=== PATIENT | female | born 1965 | race Caucasian/White ===

== ENCOUNTER 2020-01-06 20:29 | Emergency (ER) | payer MEDICARE, MEDICAID, SELFPAY ==
[2020-01-06 20:36] VITALS: BP 96/60; PULSE 95; RESP 18; TEMP 36.7; O2SAT 96; BMI 21.5
--- NOTE | 2020-01-06 21:16 | ECG_ITS ---
Measurements Intervals [place] Rate: 73 P: 41 SC: 173 QRS: -22 QRSD: 109 T: 119 QT: 428 QTc: 472 SINUS RHYTHM BORDERLINE LEFT AXIS DEVIATION [QRS AXIS < -20] ST DEVIATION AND MODERATE T-WAVE ABNORMALITY, CONSIDER ANTERIOR ISCHEMIA [-0.1+ mV T WAVE IN V3/V4] No previous ECG available for comparison Electronically Signed On 01-07-2020 20:22:17 PREDATORY HUNTER by Franco Buchanan M.D. [id number]
--- NOTE | 2020-01-06 21:16 | XRR_ITS ---
PROCEDURE INFORMATION: Exam: XR Abdomen, 2 Views Exam date and time: 01/06/2020 9:17 PM Age: 54 years old Clinical indication: Nausea and vomiting; Abdominal pain; Prior surgery; Surgery type: Peritoneal dialysis cath; Additional info: Bell[place] pain TECHNIQUE: Imaging protocol: XR of the abdomen. Views: 2 Views. COMPARISON: No relevant prior studies available. FINDINGS: Tubes, catheters and devices: Peritoneal dialysis catheter tubing is coiled in the pelvis. Lungs: Ill-defined airspace opacity in the right lower lobe concerning for pneumonic infiltrate is noted. Pleural space: Probable small right pleural effusion. Gastrointestinal tract: Normal. No bowel dilation. Intraperitoneal space: Normal. No free air. Organs: Probable cholecystectomy clips are noted in the right upper quadrant. Vasculature: There are vascular calcifications. No definite nephrolithiasis. Bones/joints: Unremarkable for age. XR/XR acute abdomen series [id number] IMPRESSION: 1. Ill-defined airspace opacity in the right lower lobe concerning for pneumonic infiltrate is noted. 2. Nonspecific bowel gas pattern.
--- NOTE | 2020-01-06 21:17 | PC.NURSE ---
Introduced self to patient and initiated vital signs. Patient presents A&O x 4. NAD, ABCs intact, MAEW and agreeable to treatment. Respirations are even and unlabored. Pt states medications taken before coming to ER was hydrocodone. Pt states that the chief complaint for the ER visit today is due to abdominal pain which presented approximately 4 days ago. Pt denies any vision disturbances or lightheadedness. Bed left in lowest position in semi-fowlers with side rails up.Reassured patient of needs and will continue to monitor.
--- NOTE | 2020-01-06 21:17 | W.ED.GENADLT ---
HPI - General Adult General: Chief complaint: Abdominal Pain Stated complaint: ABD PAIN Time Seen by Provider: 01/06/20 21:08 History of Present Illness: HPI narrative: Abdominal pain for a few days per just recently discharged from the [facility] in [place] with a diagnosis of pneumonia patient was sent to [facility] for 4 days and patient checked herself out today. Apparently residential was not given her hydrocodone and that is what she wanted. now abdominal pain and nausea only resolved with hydrocodone. Patient had dialysis treatment yesterday does peritoneal dialysis sees Dr. Mosquera on a regular basis. Denies fever shortness of breath or cough. MD complaint: Abdominal pain Onset (ago): week(s) Location: abdomen Radiation: non-radiation Severity scale (1-10): 7 Quality: burning and aching Pain Consistency: constant Relieving factors: medication (Hydrocodone) Exacerbating factors: none Associated symptoms: Reports no associated symptoms, nausea and vomiting; Deny chest pain, dyspnea, headache(s) or rash Review of Systems Const: Denies: fever, chills or body aches Eyes: Denies: change in vision or blurry vision ENMT: Denies: throat pain or nasal congestion Card: Denies: chest pain or shortness of breath on exertion Resp: Reports: non-productive cough (Cough has improved); Denies: shortness of breath or productive cough GI: Reports: abdominal pain, nausea and vomiting; Denies: diarrhea, constipation, bloating or excessive passing of gas Musc: Denies: extremity pain Skin/Breast: Denies: rash Neuro: Denies: headache Psych: Denies: anxiety or depression Bertin/Lymph: Denies: easy bruising PFS ED PFSH: Social History Smoking and tobacco status: former smoker Physical Exam Const: COMMON NORMALS: no apparent distress, average body habitus and oriented x3 HENMT: COMMON NORMALS: normocephalic HEAD & SCALP: normal to inspection and normocephalic FACE & SINUS: normal facial exam Eye: COMMON NORMALS: conjunctivae normal GENERAL EYE: normal appearance of both eyes CONJUNCTIVA: Yes conjunctivae normal Neck/C-Spine: COMMON NORMALS: no JVD Chest: COMMONS NORMALS: inspection of chest normal Resp: COMMON NORMALS: normal respiratory effort and clear to auscultation bilaterally AUSCULTATION: clear to auscultation bilaterally Cardio: COMMON NORMALS: no JVD, regular rate and regular rhythm RATE: regular rate RHYTHM: regular rhythm GI: INSPECTION: Yes other (Dialysis port present on abdomen abdomen appears fine. Does have tenderness to the upper epigastric area. Decreased bowel sounds.) Extremity: COMMON NORMALS: normal to inspection and full ROM Neuro: COMMON NORMALS: oriented x3 Skin: OTHER: Skin is very dry. Course Vital Signs: Vital signs: Vital Signs Temperature 98.1 F 01/06/20 20:36 Pulse Rate 72 01/07/20 01:35 Respiratory Rate 16 01/07/20 01:35 Blood Pressure 121/77 01/07/20 01:35 Pulse Oximetry 98 01/07/20 01:35 MDM - General Adult MDM Narrative: Medical decision making narrative: Discussed case with Dr. Lujan recommends admission. CAll into Dr. Kaminski at [address] Kaminski 3 separate times about patient she was in a couple emergencies upstairs. Went over the labs and patient history patient history with Dr. Yamilex Kaminski did not think patient met criteria for admission criteria for admission based on her past history of with pneumonia at [facility] in stable clinical signs. We discussed that patient had a left [facility] residential today on her own accord signed out do not been able to get her hydrocodone while in the residential and she was desirous of having hydrocodone. During patient stay here she was stable was pain-free clinically no shortness of breath fever are cough discussed case with Dr. Chappell also Dr. Kaminski . Lab Data: Labs: Lab Results 01/06/20 01/06/20 01/06/20 Range/Units 21:17 21:17 22:28 WBC 16.4 H (4.0-10.0) 10^3/ uL RBC 3.85 L (4.1-5.3) 10^6/u L Hgb 11.1 L (11.5-15.3) g/dL Hct 34.3 L (37.0-47.0) % MCV 89.1 (81-99) fL MCH 28.8 (28.0-34.0) pg MCHC 32.4 (30.0-36.0) g/dL RDW 17.6 H (12.1-15.1) % Plt Count 344 (130-400) 10^3/c mm MPV 10.2 (7.4-10.4) fL Neut % (Auto) 84.5 % Lymph % (Auto) 8.4 % Sharkey % (Auto) 5.9 % Eos % (Auto) 0.5 % Baso % (Auto) 0.2 % Neut # (Auto) 13.9 H (1.8-7.7) 10^3/u L Lymph # (Auto) 1.4 (0.8-4.8) 10^3/u L Sharkey # (Auto) 1.0 H (0.2-0.9) 10^3/u L Eos # (Auto) 0.1 (0.0-0.8) 10^3/u L Baso # (Auto) 0.0 (0.0-0.1) 10^3/u L Nucleated RBC % (a uto) 0 % Nucleated RBCs # 0.0 /100WBC Sodium 135 L (136-145) mmol/L Potassium 3.3 L (3.5-5.1) mmol/L Chloride 93 L (98-107) mmol/L Carbon Dioxide 27 (22-29) mmol/L Anion Gap 18.3 (5-19) BUN 36 H (6-20) mg/dL Creatinine 7.5 H* (0.5-0.9) mg/dL GFR Calculation 5.7 L (90-130) mL/min Glucose 54 L (65-115) mg/dL Lactic Acid (Sepsi s) 1.2 (0.5-2.2) mmol/L Calcium 7.6 L (8.5-10.5) mg/dL Total Bilirubin 0.4 (0.15-1.2) mg/dL AST 21 (0-32) U/L ALT 14 (0-33) U/L Alkaline Phosphata se 148 H (35-105) IU/L Troponin T Gen 5 n g/L (0-10) ng/mL Troponin T 120 Min elem (0-10) ng/mL Delta Troponin T (0-10) ABS# Total Protein 5.0 L (6.6-8.7) g/dL Albumin 1.9 L (3.5-5.2) g/dL Globulin 3.1 (1.3-4.6) g/dL Lipase 9 L (13-60) U/L 01/06/20 01/07/20 Range/Units 22:28 00:40 WBC (4.0-10.0) 10^3/ uL RBC (4.1-5.3) 10^6/u L Hgb (11.5-15.3) g/dL Hct (37.0-47.0) % MCV (81-99) fL MCH (28.0-34.0) pg MCHC (30.0-36.0) g/dL RDW (12.1-15.1) % Plt Count (130-400) 10^3/c mm MPV (7.4-10.4) fL Neut % (Auto) % Lymph % (Auto) % Sharkey % (Auto) % Eos % (Auto) % Baso % (Auto) % Neut # (Auto) (1.8-7.7) 10^3/u L Lymph # (Auto) (0.8-4.8) 10^3/u L Sharkey # (Auto) (0.2-0.9) 10^3/u L Eos # (Auto) (0.0-0.8) 10^3/u L Baso # (Auto) (0.0-0.1) 10^3/u L Nucleated RBC % (a uto) % Nucleated RBCs # /100WBC Sodium (136-145) mmol/L Potassium (3.5-5.1) mmol/L Chloride (98-107) mmol/L Carbon Dioxide (22-29) mmol/L Anion Gap (5-19) BUN (6-20) mg/dL Creatinine (0.5-0.9) mg/dL GFR Calculation (90-130) mL/min Glucose (65-115) mg/dL Lactic Acid (Sepsi s) (0.5-2.2) mmol/L Calcium (8.5-10.5) mg/dL Total Bilirubin (0.15-1.2) mg/dL AST (0-32) U/L ALT (0-33) U/L Alkaline Phosphata se (35-105) IU/L Troponin T Gen 5 n g/L 530 H* (0-10) ng/mL Troponin T 120 Min elem 505.9 H (0-10) ng/mL Delta Troponin T -24.1 L (0-10) ABS# Total Protein (6.6-8.7) g/dL Albumin (3.5-5.2) g/dL Globulin (1.3-4.6) g/dL Lipase (13-60) U/L Imaging Data^: CXR: My impression: RLL infiltrate EKG Data^: EKG 1: EKG interpretation date: 01/06/20 EKG interpretation time: 21:39 Interpretation: Sr, VR-73 bpm, pr-173md Computer generated interpretation: Chest/Abdomen X-ray 01/06/20 21:16 IMPRESSION: 1. Ill-defined airspace opacity in the right lower lobe concerning for pneumonic infiltrate is noted. 2. Nonspecific bowel gas pattern. EKG 2: EKG interpretation date: 01/06/20 EKG interpretation time: 23:17 Interpretation: SR, VR-77bpm, ST deviation v3-4, VT- 171ms Computer generated interpretation: Chest/Abdomen X-ray 01/06/20 21:16 IMPRESSION: 1. Ill-defined airspace opacity in the right lower lobe concerning for pneumonic infiltrate is noted. 2. Nonspecific bowel gas pattern. Discharge Plan Discharge Patient Disposition: Home, Self-Care Clinical Impression: Abdominal pain Qualifiers: Abdominal location: generalized Qualified Code(s): R10.84 - Generalized abdominal pain Pneumonia Qualifiers: Pneumonia type: due to unspecified organism Laterality: right Lung location: lower lobe of lung Qualified Code(s): J18.9 - Pneumonia, unspecified organism Condition: Stable Prescriptions: No Action albuterol sulfate 2.5 mg /3 mL (0.083 %) solution for nebulization See Rx Instructions .ROUTE .COMPLEX RF: 0 amiodarone 200 mg tablet 200 mg PO DAILY RF: 0 sertraline 100 mg tablet 100 mg PO DAILY RF: 0 levothyroxine 150 mcg tablet See Rx Instructions .ROUTE .COMPLEX RF: 0 gentamicin 0.1 % Cream 1 applic TOPICAL QID RF: 0 sorbitol 70 % Solution See Rx Instructions .ROUTE .COMPLEX RF: 0 Xopenex HFA 45 mcg/actuation Hfa Aerosol Inhaler 2 puff INHALATION Q8H PRN (Reason: Shortness Of Breath) RF: 0 RenaPlex-D 800 mcg-12.5 mg -2,000 unit Tablet 1 tab PO DAILY RF: 0 calcium acetate 667 mg Capsule 667 mg PO TID RF: 0 Nexium 40 mg Capsule,Delayed Release(Dr/Ec) 40 mg PO DAILY RF: 0 morphine concentrate 100 mg/5 mL (20 mg/mL) solution 0.5 mg PO Q2H PRN (Reason: Pain) RF: 0 [place] 10-325 mg tablet 1 tab PO Q4H PRN (Reason: Pain) RF: 0 Ecotrin 325 mg tablet,delayed release (DR/EC) 325 mg PO DAILY RF: 0 Dulcolax (bisacodyl) 10 mg suppository 10 mg VT DAILY PRN (Reason: Constipation) RF: 0 ondansetron 4 mg tablet,disintegrating 4 mg PO Q6H PRN (Reason: Nausea) RF: 0 Lorazepam Intensol 2 mg/mL concentrate 1 mg PO Q2H PRN (Reason: Anxiety) RF: 0 Zetia 10 mg tablet 10 mg PO DAILY RF: 0 metoprolol tartrate 25 mg tablet 12.5 mg PO BID RF: 0 Discharge Orders: Discharge Order (Routine); Ordered 01/07/20 Ordered By: Kelvin Moreno Referrals: Hazel Mancera FNP [Family Provider] - Discharge Diet: Usual diet Discharge Activity: Increase activity as tolerated Patient Instructions: Abdominal Pain (ED) Activity Restrictions/Additional Instructions: Follow-up with your primary care provider. In the next week. Discharge Date/Time: 01/07/20 01:37 Coding Level of Care Code ED Lathe Turner for Dawna Fwd Exam Comprehensive
[2020-01-06 21:32] LABS: Basophils % 0.2 %; Eosinophils # 0.1 10^3/uL (0.0-0.8); Eosinophils % 0.5 %; Hematocrit 34.3 % (37.0-47.0); Hemoglobin 11.1 g/dL (11.5-15.3); Lymphocytes # 1.4 10^3/uL (0.8-4.8); Lymphocytes % 8.4 %; Mean Corpuscular HGB Conc 32.4 g/dL (30.0-36.0); Mean Corpuscular Hemoglobin 28.8 pg (28.0-34.0); Mean Corpuscular Volume 89.1 fL (81-99); Mean Platelet Volume 10.2 fL (7.4-10.4); Monocytes % 5.9 %; Neutrophils # 13.9 10^3/uL (1.8-7.7); Neutrophils % 84.5 %; Nucleated Red Blood Cells % 0 %; Platelet Count 344 10^3/cmm (130-400); Red Blood Count 3.85 10^6/uL (4.1-5.3); Red Cell Distribution Width 17.6 % (12.1-15.1); White Blood Count 16.4 10^3/uL (4.0-10.0)
[2020-01-06 21:49] LABS: Alanine Aminotransferase 14 U/L (0-33); Albumin Level 1.9 g/dL (3.5-5.2); Alkaline Phosphatase 148 IU/L (35-105); Anion Gap 18.3 (5-19); Aspartate Amino Transferase 21 U/L (0-32); Blood Urea Nitrogen 36 mg/dL (6-20); Calcium 7.6 mg/dL (8.5-10.5); Carbon Dioxide 27 mmol/L (22-29); Chloride 93 mmol/L (98-107); Globulin 3.1 g/dL (1.3-4.6); Glomerular Filtration Rate 5.7 mL/min (90-130); Glucose 54 mg/dL (65-115); Lipase 9 U/L (13-60); Potassium 3.3 mmol/L (3.5-5.1); Sodium 135 mmol/L (136-145); Total Bilirubin 0.4 mg/dL (0.15-1.2)
[2020-01-06] MEDS: lidocaine 2% viscous 15 ML, aluminum-mag hydrox-simethicon 30 ML, sucralfate oral liq 1 GM PO (22:02)
[2020-01-06] MEDS: promethazine 25 mg/mL SDV 1 mL 12.5 MG IM (22:03)
[2020-01-06] MEDS: piperacillin-tazobactam 2.25 GM in sodium chloride 0.9% (plus) 50 ML IV (22:29)
[2020-01-06] MEDS: vancomycin 500 MG in sodium chloride 0.9% (plus) 100 ML 200 MG IV (22:51)
[2020-01-06 22:52] LABS: Lactic Acid level (Lactate) 1.2 mmol/L (0.5-2.2)
[2020-01-06 22:59] LABS: Troponin T (5th) Once 530 ng/mL (0-10)
--- NOTE | 2020-01-06 23:04 | ECG_ITS ---
Measurements Intervals [place] Rate: 77 P: 35 [place]: 171 QRS: -22 QRSD: 105 T: 131 QT: 425 QTc: 482 SINUS RHYTHM BORDERLINE LEFT AXIS DEVIATION [QRS AXIS < -20] ST DEVIATION AND MODERATE T-WAVE ABNORMALITY, CONSIDER ANTERIOR ISCHEMIA [-0.1+ mV T WAVE IN V3/V4] No previous ECG available for comparison Electronically Signed On 01-07-2020 20:23:25 PAYROLL SPECIALIST by Franco Buchanan M.D. [email or web address]
[2020-01-06 23:35] VITALS: BP 107/67; O2SAT 99
[2020-01-06 23:40] VITALS: BP 107/67; PULSE 73; RESP 12; O2SAT 95
[2020-01-06 23:45] VITALS: BP 107/67; PULSE 75; RESP 9; O2SAT 94
[2020-01-06 23:50] VITALS: BP 107/67; PULSE 77; RESP 9; O2SAT 95
[2020-01-06 23:55] VITALS: BP 107/67; PULSE 76; RESP 12; O2SAT 95
[2020-01-07] VITALS (15 sets, daily range): BP systolic 101–129; BP diastolic 66–77; PULSE 72–93; RESP 4–23; O2SAT 86–100
--- NOTE | 2020-01-07 01:04 | ECG_ITS ---
Measurements Intervals [place] Rate: 76 P: 13 [place]: 149 QRS: -18 QRSD: 109 T: 226 QT: 448 QTc: [address] DEVIATION AND MODERATE T-WAVE ABNORMALITY, CONSIDER ANTEROLATERAL ISCHEMIA [-0.1+ mV T WAVE IN V3-V6] No previous ECG available for comparison Electronically Signed On 01-07-2020 20:33:47 VIRTUALIZATION ARCHITECT by Franco Buchanan M.D. [id number]
[2020-01-07 01:16] LABS: Troponin 5 2HR 505.9 ng/mL (0-10); Troponin 5 2HR Delta -24.1 ABS# (0-10)
== END 2020-01-07 01:37 | disposition home or self-care (01) ==
PROVIDERS: Emergency Provider Nurse Practitioner Family; Family Provider Nurse Practitioner Family
DX: J18.9 Pneumonia, unspecified organism (principal); R10.9 Unspecified abdominal pain; Z87.891 Personal history of nicotine dependence
CPT/HCPCS: 36415; 74022; 80053; 83605; 83690; 84484; 85025; 87040; 93005; 96365; 96367; 96372; 99284; J2543; J2550; J7050

== ENCOUNTER 2020-01-23 01:26 | Inpatient (IN) | payer MEDICARE, SELFPAY ==
--- NOTE | 2020-01-23 01:06 | P.HP_ITS ---
Providers/Chief Complaint Admitting Physician: Miladys Vazquez MD Chief Complaint: HYPOKALEMIA/HYPOTENSION History of Present Illness Leonie Wong is a 54 year old female who has a history of end-stage renal disease currently on peritoneal dialysis since 2016, sees Dr. Mosquera, has home health services Thursday, she was at [facility] for pneumonia and she was there for 3 to 4 weeks, developed pressure induced injury around her coccygeal bone and was transferred to half-way at [place]. She lives with her son, quit smoking 2018, does not follow strictly renal diet, lately she was feeling more lethargic and weak, experiencing muscle cramps, she stopped taking her potassium tablets because it made her sick. She continued her peritoneal dialysis, home health services miryam labs and called her today to get to the ER because of potassium of 1.6. At [facility] she was given 80 mEq of potassium chloride, 1 L normal saline, improved potassium from 1.6-2.1, no EKG changes were noticed, she was awake, alert. ER physician from [place] transferred to our facility for concerns i.e. hypokalemia and hypotension. When patient arrived here she was asymptomatic, gave me all the details mentioned above, she is telling me that at home her blood pressure runs around 90-1 10, she has not been taking her potassium tablets, she does not make any urine at all, she was scheduled to see a keyboarding teacher at [place] who was planning for an angiogram, she is not aware of the details and the reason for the angiogram. She is not sure why she is on amiodarone but able to tell me seamus t Coumadin was discontinued by Dr. Mosquera which was being used for thromboembolic phenomenon. Her TSH is extremely high she is on high dose of levothyroxine. Diagnostic work-up was reviewed She stayed afebrile, heart rate was fluctuating between 60-67, respiratory rate 16, systolic blood pressure was ranging between 70-90, after 1 L bolus blood pressure improved to 118/58, he was saturating well on room air White count 13.6 Hemoglobin 11.3 Platelets 342. Sodium 138 Potassium 1.6 which improved to 2.1 after replenishment Calcium 7.1 Bicarb 30 BUN 20 Creatinine 4.4 Glucose 90 Alkaline phosphatase 146 AST 42K ALT 27 Magnesium 1.3, she was given 2 g of magnesium IV TSH 97 Chest x-ray revealed decreased lung volumes with elevated right hemidiaphragm groundglass opacity in right lung/atelectasis no fluid overloaded vascular congestion seen Review of Systems Const: Reports: body aches, change in appetite, change in weight, fatigue and malaise; Denies: fever or chills Eyes: Denies: change in vision ENMT: Denies: throat pain, uvular edema, enlarged tonsils or painful swallowing Card: Reports: palpitations; Denies: chest pain or edema Resp: Denies: shortness of breath, productive cough or non-productive cough GI: Denies: abdominal pain, nausea or vomiting : Denies: flank pain, difficulty urinating or urinary frequency Musc: Reports: muscle cramps and muscle weakness Skin/Breast: Reports: rash and other (Patient has a tunneled wound on her coccygeal bone) Neuro: Reports: lack of coordination, frequent falls and dizziness; Denies: headache, numbness in extremities or weakness in extremities Psych: Denies: anxiety Endo: Denies: excessive urination Bertin/Lymph: Denies: easy bruising All/Imm: Denies: hives Medications/Allergies Allergies Allergy/AdvReac Type Severity Reaction Status Date / Time blue dye Allergy Unknown ADR-Itching Unverified 01/23/20 02:06 acetaminophen [From Percocet] Allergy ADR-Itching Verified 01/06/20 20:46 cefuroxime [From Ceftin] Allergy ADR-Itching Verified 01/06/20 20:46 ibuprofen Allergy ADR-Itching Verified 01/06/20 20:46 oxycodone [From Percocet] Allergy ADR-Itching Verified 01/06/20 20:46 PFSH Acute PFSH: Medical History (Updated 01/23/20 @ 02:18 by Miladys Vazquez MD) Depression Diabetes DVT (deep venous thrombosis) Dyslipidemia End stage renal disease GERD (gastroesophageal reflux disease) Hx of necrotizing fasciitis Hypothyroidism MRSA infection Osteoarthritis Pressure ulcer, stage III Renal failure treated with peritoneal dialysis Thyroid nodule Urolithiasis Surgical History (Updated 01/23/20 @ 02:13 by Miladys Vazquez MD) Gastric bypass status for obesity H/O parathyroidectomy H/O ventral hernia repair History of carpal tunnel surgery History of tonsillectomy Hx of cholecystectomy Family History (Updated 01/23/20 @ 02:13 by Miladys Vazquez MD) Denies family history of Clotting disorder Chronic kidney disease (CKD) Social History (Updated 01/23/20 @ 02:13 by Miladys Vazquez MD) Smoking and tobacco status: former smoker Alcohol intake: never Substance/Drug Use: never Household members: family Housing: House Physical Exam Narrative: EXAM NARRATIVE: This is a frail 54-year-old female who appears more than stated age Lying comfortably in her bed S1, S2, no signs of heart failure Lungs are clear to auscultation Abdomen soft nontender nondistended bowel sound present Skin shows petechia purpura with bruises and lacerations all over her extremities She has a tunneled wound around her coccygeal bone without any active drainage Alert oriented x3, GCS 15, neurologically nonfocal exam Appropriate mood and affect EOMI, PERRLA A&P Assessment and plan (1) Hypotension: Status: Acute Code(s): I95.9 - Hypotension, unspecified (2) Hypokalemia: Status: Acute Code(s): E87.6 - Hypokalemia (3) Hypomagnesemia: Status: Acute Code(s): E83.42 - Hypomagnesemia (4) Peritoneal dialysis catheter in place: Status: Acute Code(s): Z99.2 - Dependence on renal dialysis (5) Malnourished: Status: Acute Code(s): E46 - Unspecified protein-calorie malnutrition Additional A&P Information Electrolyte imbalance secondary to noncompliance Hypomagnesemia, hypokalemia No diarrhea or vomiting Monitor for refeeding syndrome, she has poor p.o. intake, stopped taking her potassium tablets Replete potassium and magnesium No EKG changes noted End-stage renal disease on peritoneal dialysis Last peritoneal dialysis session was yesterday Dr. Mosquera is her animal care supervisor Hypotension No signs of sepsis It seems to be her chronic baseline systolic blood pressure which ranges between 90-1 10 Hold beta-meghan for now along amiodarone Hypothyroidism: TSH 97, she takes 50 mcg 3 times a day History of thromboembolism: Patient is stating that Dr. Mosquera has discontinued warfarin and start her on high-dose aspirin Obtain records from [facility] from Dr. Be, patient is stating that she was scheduled for an angiogram Currently chest pain-free. Tunneled coccygeal area wound No active drainage Without proper source control she might benefit from long-term chronic oral antibiotics Patient is stating that this pressure induced injury was sustained during her stay at the [facility] Left heel ulcer seems well-healed without any active drainage Patient seems malnourished: She does not follow any strict renal diet, her p.o. intake has been decreased, needs reinforcement and counseling for proper nutritional requirements Full code DVT prophylaxis Heparin Renal diet Attestations Medical Necessity Statement*: Anticipating discharge in less than 48 hours after replenishment of electrolytes Time Spent in Patient Care: 50 Coding Level of Care Code Acute Head Wood Grinder for Chg Fwd Diagnoses Hypotension I95.9 Hypokalemia E87.6 Hypomagnesemia E83.42 Peritoneal dialysis catheter in place Z99.2 Malnourished E46
[2020-01-23 01:33] VITALS: BMI 21.7
[2020-01-23] MEDS: magnesium oxide 400 mg tablet PO (04:05)
[2020-01-23] MEDS: heparin 5,000 unit/mL INJ 1 mL 5000 UNIT SUBCUT ×3 (04:05→22:22)
[2020-01-23 05:33] VITALS: BP 88/60; PULSE 73; RESP 20; TEMP 36.7; O2SAT 98
[2020-01-23 05:37] VITALS: BP 101/68; PULSE 71; RESP 16; TEMP 36.7; O2SAT 96
[2020-01-23 06:47] LABS: Basophils # 0.1 10^3/uL (0.0-0.1); Basophils % 0.6 %; Eosinophils # 0.3 10^3/uL (0.0-0.8); Eosinophils % 2.5 %; Hematocrit 25.7 % (37.0-47.0); Hemoglobin 9.4 g/dL (11.5-15.3); Lymphocytes # 2.7 10^3/uL (0.8-4.8); Lymphocytes % 23.9 %; Mean Corpuscular HGB Conc 36.6 g/dL (30.0-36.0); Mean Corpuscular Hemoglobin 29.4 pg (28.0-34.0); Mean Corpuscular Volume 80.3 fL (81-99); Monocytes # 0.6 10^3/uL (0.2-0.9); Monocytes % 5.6 %; Neutrophils # 7.4 10^3/uL (1.8-7.7); Neutrophils % 67.1 %; Nucleated Red Blood Cells % 0 %; Platelet Count 271 10^3/cmm (130-400); Red Cell Distribution Width 19.9 % (12.1-15.1); White Blood Count 11.1 10^3/uL (4.0-10.0)
[2020-01-23 07:02] LABS: Anion Gap 9.4 (5-19); Blood Urea Nitrogen 17 mg/dL (6-20); Calcium 6.6 mg/dL (8.5-10.5); Carbon Dioxide 29 mmol/L (22-29); Chloride 108 mmol/L (98-107); Glomerular Filtration Rate 9.5 mL/min (90-130); Glucose 68 mg/dL (65-115); Osmolality Calculated 293 mOsm/kg (285-295); Sodium 144 mmol/L (136-145)
--- NOTE | 2020-01-23 07:06 | ECG_ITS ---
Measurements Intervals [place] Rate: 71 P: 9 [place]: 185 QRS: -21 QRSD: 110 T: 132 QT: 418 QTc: 456 SINUS RHYTHM LOW QRS VOLTAGE IN PRECORDIAL LEADS [QRS DEFLECTION < 1.0 mV IN CHEST LEADS] MODERATE INTRAVENTRICULAR CONDUCTION DELAY [105+ ms QRS DURATION, 80+ ms Q/S IN V1/V2, NO Q AND 60+ ms R IN I/aVL/V5/V6] ABNORMAL QRS-T ANGLE [QRS-T AXIS DIFFERENCE > 60] Compared to ECG 01/07/2020 00:56:55 Low QRS voltage now present Intraventricular conduction delay now present T-wave abnormality no longer present Possible ischemia no longer present Electronically Signed On 01-23-2020 17:24:54 CDT by Trevor Pérez M.D. [id number]
[2020-01-23 07:09] LABS: Potassium 2.4 mmol/L (3.5-5.1)
[2020-01-23 07:35] VITALS: BP 104/67; PULSE 71; RESP 18; TEMP 36.7; O2SAT 98
[2020-01-23] MEDS: sertraline 100 mg Tablet PO (10:00)
[2020-01-23] MEDS: pantoprazole DR 40 mg Tablet PO (10:01)
[2020-01-23] MEDS: aspirin 325 mg EC Tablet PO (10:01)
[2020-01-23] MEDS: calcium acetate 667 mg Capsule PO (10:02)
[2020-01-23] MEDS: ondansetron 4 MG Tablet PO (10:41)
[2020-01-23] MEDS: levothyroxine 50 mcg Tablet 150 MCG PO (10:41)
[2020-01-23 10:51] LABS: Free T4 Free Thyroxine 0.69 ng/dL (0.82-1.77); T3 Free 0.8 PG/ML (2.0-4.4); Thyroid Stimulating Hormone 67.05 uIU/mL (0.27-4.20)
[2020-01-23 11:08] VITALS: BP 110/61; PULSE 74; RESP 16; TEMP 36.8; O2SAT 97
--- NOTE | 2020-01-23 11:09 | PC.NURSE ---
WOUND CARE [place]URSE [place] [facility] [place] AND SPOKE TO NURSE PEPE IN REGARDS TO WOUND CARE ON PATIENT. WOUND CARE ORDERS HAD BEEN STARTED BY LILLIANA PARMAR WHEN PATIENT WAS SEEN FOR HER FOLLOW FOR HER HOSPITAL STAY IN [facility]. PEPE REPORTED THAT THEY HAD STARTED PACKING WOUND WITH PURACOL WHICH SHE DESCRIBED TO BE SIMILAR TO A [employer] DRESSING AND COVERING. PEPE REPORTS THE LAST MEASUREMENT THEY HAVE ON FILE FOR WOUND DEPTH IS 3 CM DUE TO TUNNELING. WILL REVIEW INFORMATION WITH PROVIDER.
--- NOTE | 2020-01-23 12:58 | PM.CONSULT ---
Providers/Reason For Consult Consulting Physican/Specialty*: telenephrology Reason for Consult*: ESRD care, electrolyte abnormalities Attending Physician: Mj Vuong MD Primary Care Provider: Ariella Aguilera MD History of Present Illness History of Present Illness Leonie Wogn is a 54 year old female w/ ESRD on CCPD, htn, hypothyroidism, CAD. recent pna. pt is very weak. was sent in for hypokalemia. she denies n/v/diarrhea. but has a poor appetite. Review of Systems General: Reports: 10 or more systems reviewed and unremarkable except in HPI and below Narrative: weak, lethargic, headaches. no visual changes. denies palps or sob. +CLARK. poor appetite, no diarrhea. depressed Meds/Allergies Home Medications and Allergies Home Medications Medication Instructions Recorded Confirmed Type albuterol sulfate See Rx Instructions .ROUTE .COMPLEX 01/06/20 01/06/20 History amiodarone 200 mg PO DAILY 01/06/20 01/06/20 History aspirin [Ecotrin] 325 mg PO DAILY 01/06/20 01/06/20 History bisacodyl [Dulcolax (bisacodyl)] 10 mg [place] DAILY PRN 01/06/20 01/06/20 History calcium acetate 667 mg PO TID 01/06/20 01/06/20 History esomeprazole magnesium [Nexium] 40 mg PO DAILY 01/06/20 01/06/20 History ezetimibe [Zetia] 10 mg PO DAILY 01/06/20 01/06/20 History gentamicin 1 applic TOPICAL QID 01/06/20 01/06/20 History hydrocodone-acetaminophen [[place]] 1 tab PO Q4H PRN 01/06/20 01/06/20 History levalbuterol tartrate [Xopenex HFA] 2 puff INHALATION Q8H PRN 01/06/20 01/06/20 History levothyroxine See Rx Instructions .ROUTE .COMPLEX 01/06/20 01/09/20 History lorazepam [Lorazepam Intensol] 1 mg PO Q2H PRN 01/06/20 01/06/20 History metoprolol tartrate 12.5 mg PO BID 01/06/20 01/06/20 History morphine concentrate 0.5 mg PO Q2H PRN 01/06/20 01/09/20 History ondansetron 4 mg PO Q6H PRN 01/06/20 01/06/20 History sertraline 100 mg PO DAILY 01/06/20 01/09/20 History sorbitol See Rx Instructions .ROUTE .COMPLEX 01/06/20 01/06/20 History vit B,G-AS-ihxu-selen-vit D3-E 1 tab PO DAILY 01/06/20 01/09/20 History [RenaPlex-D] doxycycline hyclate 100 mg capsule 100 mg PO BID #20 cap 01/10/20 01/10/20 Rx guaifenesin 600 mg tablet, 600 mg PO Q12H #60 tab 01/10/20 01/10/20 Rx extended release 12 hr menthol 0.44 %-zinc oxide 20.6 % 1 applic TOPICAL QID PRN #113 gm 01/10/20 01/10/20 Rx topical ointment Allergies Allergy/AdvReac Type Severity Reaction Status Date / Time blue dye Allergy Unknown ADR-Itching Unverified 01/23/20 02:06 acetaminophen [From Percocet] Allergy ADR-Itching Verified 01/06/20 20:46 cefuroxime [From Ceftin] Allergy ADR-Itching Verified 01/06/20 20:46 ibuprofen Allergy ADR-Itching Verified 01/06/20 20:46 oxycodone [From Percocet] Allergy ADR-Itching Verified 01/06/20 20:46 Current Medications Current Medications Generic Name Dose Route Start Last Admin Trade Name Freq PRN Reason Stop Dose Admin Aspirin 325 mg 01/23/20 09:00 01/23/20 10:01 Aspirin Ec PO 325 mg DAILY ZAIN Administration Ezetimibe 10 mg 01/23/20 09:00 01/23/20 10:00 Zetia PO Not Given DAILY ZAIN Gentamicin Sulfate 1 applic 01/23/20 09:00 01/23/20 12:54 Gentamicin Cream TOPICAL Not Given QID ZAIN Heparin Sodium (Beef Lung) 5,000 unit 01/23/20 01:15 01/23/20 11:21 Heparin SUBCUT 5,000 unit Q8H ZAIN Administration Levothyroxine Sodium 150 mcg 01/23/20 10:30 01/23/20 10:41 Synthroid PO 150 mcg DAILY ZAIN Administration Ondansetron HCl 4 mg 01/23/20 01:08 01/23/20 10:41 Zofran PO 4 mg Q6H PRN Administration Nausea Pantoprazole Sodium 40 mg 01/23/20 09:00 01/23/20 10:01 Protonix PO 40 mg DAILY ZAIN Administration Potassium Chloride 40 meq 01/23/20 09:00 01/23/20 10:02 Klor-Con 10 PO 40 meq DAILY ZAIN Administration Sertraline HCl 100 mg 01/23/20 09:00 01/23/20 10:00 Zoloft PO 100 mg DAILY ZAIN Administration PFSH Acute PFSH: Medical History (Updated 01/23/20 @ 02:18 by Miladys Vazquez MD) Depression Diabetes DVT (deep venous thrombosis) Dyslipidemia End stage renal disease GERD (gastroesophageal reflux disease) Hx of necrotizing fasciitis Hypothyroidism MRSA infection Osteoarthritis Pressure ulcer, stage III Renal failure treated with peritoneal dialysis Thyroid nodule Urolithiasis Surgical History (Updated 01/23/20 @ 02:13 by Miladys Vazquez MD) Gastric bypass status for obesity H/O parathyroidectomy H/O ventral hernia repair History of carpal tunnel surgery History of tonsillectomy Hx of cholecystectomy Family History (Updated 01/23/20 @ 02:13 by Miladys Vazquez MD) Denies family history of Clotting disorder Chronic kidney disease (CKD) Social History (Updated 01/23/20 @ 02:13 by Miladys Vazquez MD) Smoking and tobacco status: former smoker Alcohol intake: never Substance/Drug Use: never Household members: family Housing: House Vitals/I&O/Wt Last Vital Signs Temp 98.2 F 01/23/20 11:08 Pulse 74 01/23/20 11:08 Resp 16 01/23/20 11:08 BP 110/61 01/23/20 11:08 Pulse Ox 97 01/23/20 11:08 01/22/20 01/23/20 01/23/20 22:59 06:59 14:59 Intake Total 250 / 250 240 / 240 Balance 250 / 250 240 / 240 Weight last 48 hrs Weight 52.118 kg Physical Exam Narrative: EXAM NARRATIVE: elderly comfortable in bed. bp low but acceptable heent- nc/at, eomi neck supple, no jvp lungs clear heart reg abd soft, + PD ctaheter ext no edmea neuro- a,a, o x 3 Data Micro: Micro: Microbiology 01/23/20 10:54 Blood Culture - Pr eliminary Blood SPECIMEN [facility] COLT 01/23/20 06:30 C.difficile Toxin B Gene (PCR) - Luke grimes Stool A&P Additional A&P Information 1/ ESRD- cont CAPD in hospital- 4 exchanges a day of 2 liters of 1.5% glu 2. hypothyroidism- give lecothyroxine at least 2 hrs apart from phos binders 3. hypocalcemia and h/o parathyroidectomy for tertiary hyperparathyroidism- check vit d level, pth, phos, and ca -replace w/ tums 4, hypokalemia and hypomagnesemia- replace iv and monitor 5. +trop as per cardiology 6. recent PNA 7. malnutrition- please start nepro 2 cans a day 8. please check chem 7, mag, phos bid 9. anemia- check iron studies, b12, and folate discussed w/ pt, RN, and hospitalist in detail Consult Attestations Medical Necessity Statement: esrd, hypocalcemia, hypothyroidism, weakness, electrolyte abnormalities Time Spent in Patient Care: Greater than 35 minutes Coding Level of Care Code Acute Supervisor White [employer] for Montseg Calin
[2020-01-23 13:04] LABS: Cortisol Random 22.99 mcg/dL (2.47-19.5)
--- NOTE | 2020-01-23 13:07 | P.PN_ITS ---
Subjective Subjective: Interval history: Admitted overnight. H&P and labs noted. On examination patient is lying comfortably in bed. She complains of mild abdominal pain but states is tolerable. Discussed the patient regarding her medications which she takes at home. It looks like patient has poor insight of her home medications. Vitals/I&O/Wt Last Vital Signs Temp 98.2 F 01/23/20 11:08 Pulse 74 01/23/20 11:08 Resp 16 01/23/20 11:08 BP 110/61 01/23/20 11:08 Pulse Ox 97 01/23/20 11:08 01/22/20 01/23/20 01/23/20 22:59 06:59 14:59 Intake Total 250 / 250 240 / 240 Balance 250 / 250 240 / 240 Weight last 48 hrs Weight 52.118 kg Physical Exam Narrative: EXAM NARRATIVE: General: No acute distress, AO x3, malnourished HEENT: PERRLA, pupils bilaterally equal and reactive Chest: Normal vesicular breath sounds, no added sounds, equal good air entry bilaterally CVS: S1-S2 regular, no murmurs, no tachycardia, no gallops, no rubs Abdomen: Soft, mild tenderness and right lower quadrant, site of peritoneal dialysis looks healthy, no organomegaly, bowel sounds present Neuro: No focal deficits, no facial deformity, AO x3, power 5/5 in all limbs Decubitus: She has a circular 0.5 tunneling stage IV ulcer present in the sacral area, covered with dressing which is not soaked, on removing dressing there is mild purulent discharge present. Data : 01/23/20 06:24 01/23/20 06:24 Micro: Microbiology 01/23/20 10:54 Blood Culture - Preliminary Blood SPECIMEN COLLECTED 01/23/20 06:30 C.difficile Toxin B Gene (PCR) - Final Stool A&P Assessment and plan (1) Peritoneal dialysis catheter in place: Status: Acute Code(s): Z99.2 - Dependence on renal dialysis (2) Hypotension: Status: Acute Code(s): I95.9 - Hypotension, unspecified (3) Hypokalemia: Status: Acute Code(s): E87.6 - Hypokalemia (4) Hypomagnesemia: Status: Acute Code(s): E83.42 - Hypomagnesemia (5) Malnourished: Status: Acute Code(s): E46 - Unspecified protein-calorie malnutrition Additional A&P Information Hypotension: Patient having slight tenderness in abdomen. Given the history of peritoneal dialysis cannot rule out PD peritonitis. We will send fluid for analysis, culture and sensitivity. For now empirically start patient on vancomycin and ceftriaxone both renally dosed. No monitoring procalcitonin as patient is CKD and could be falsely elevated. Check MRSA PCR. Monitor blood pressure. We will start back on home dose of metoprolol. Not sure why patient is on amiodarone, amiodarone could be feeding into her abno rmal thyroid levels. For now we will continue to hold. Electrolyte imbalance: Hypokalemia, hypomagnesia, hypocalcemia: Secondary to severe protein energy malnutrition versus noncompliance Given the severe energy malnutrition it is possible patient will not have a good oral absorption so we will start patient on IV potassium and magnesium supplementation. Check vitamin D, ionized calcium levels, PTH. End-stage renal disease on peritoneal dialysis Last peritoneal dialysis session was yesterday. None since the admission. We will consult nephrology for further assistance. Hypothyroidism: Patient states she takes levothyroxine 50 mcg, 3 tablets daily. Not really sure if she takes it empty stomach or with other medications. As per the records from the hospital her TSH was elevated. Check stat TSH, free T3, free T4. Most likely would be deranged because of noncompliance versus not taking medication properly. Check random cortisol levels. History of DVT: More than 7 years ago. Patient is stating that Dr. Mosquera has discontinued warfarin and start her on high-dose aspirin. Check lower limb Dopplers. Tunneled coccygeal area wound: No active drainage. Patient states wound care has been done by her home health. We will get a proper wound care consult as on examination it looks like it is tunneling to the bone. Check ESR, CRP. We will try to get documents from previous hospitalization when she developed the decubitus ulcer and pneumonia. Change admission to inpatient from observation given multiple things going on. Full code DVT prophylaxis Heparin Renal diet Attestations Medical Necessity Statement*: Hypertension, abnormal electrolytes, severe hypothyroidism Time Spent in Patient Care: Greater than 35 minutes Coding Level of Care Code Acute Homicide Squad Commanding Officer for Chg Fwd Diagnoses Peritoneal dialysis catheter in place Z99.2 Hypotension I95.9 Hypokalemia E87.6 Hypomagnesemia E83.42 Malnourished E46
[2020-01-23 13:50] LABS: Body Fluid Polynuclear #Cells 0.001 10^3/uL; Body Fluid WBC 9 u/L; Monocytes # Body Fluid 0.008 10^3/uL; RBC, Body Fluid 0 10^3/uL (0-0)
[2020-01-23 13:55] LABS: Apprearance, Body Fluid CLEAR (CLEAR); Color, Body Fluid COLORLESS (PALE YELLOW)
--- NOTE | 2020-01-23 13:56 | USCV_ITS ---
Leonie Wong Age: 54 Gender: F : 1965 Exam Date: 01/23/2020 15:53 Ordering Phys: Mj Vuong MD Technologist: Kyle Pérez Exam Location: [facility] Indication: HX OF DVT BED STASIS HISTORY: Lower extremity swelling. PROCEDURES: Venous duplex imaging was performed in bilateral lower extremities. The following venous structures were evaluated: common femoral vein, profunda vein, proximal portion of the greater saphenous vein, superficial femoral vein, and the popliteal vein. FINDINGS: THERE IS DVT IN RT CFV AND FEMERAL VEIN. CONCLUSIONS Deep venous thrombosis in the right common femoral and right superficial vein. No DVT in the left lower extremity deep venous system. Dr. Selena Sneed MD (Electronically Signed) Final Date: 23 January 2020 17:02 S
[2020-01-23 14:01] LABS: 25 Hydroxy Vitamin D 31 ng/mL (30-100)
[2020-01-23 14:07] LABS: Total Protein Peritoneal Fluid 0.3 g/dL
[2020-01-23 14:16] LABS: pH Peritoneal Fluid 6.5
[2020-01-23 14:38] LABS: Alanine Aminotransferase 22 U/L (0-33); Albumin Level 1.4 g/dL (3.5-5.2); Alkaline Phosphatase 114 IU/L (35-105); Anion Gap 10.1 (5-19); Aspartate Amino Transferase 32 U/L (0-32); Blood Urea Nitrogen 17 mg/dL (6-20); C Reactive Protein 20.3 mg/L (0.0-4.9); Calcium 6.5 mg/dL (8.5-10.5); Carbon Dioxide 27 mmol/L (22-29); Chloride 109 mmol/L (98-107); Globulin 2.7 g/dL (1.3-4.6); Glomerular Filtration Rate 9.3 mL/min (90-130); Glucose 67 mg/dL (65-115); Osmolality Calculated 291 mOsm/kg (285-295); Potassium 3.1 mmol/L (3.5-5.1); Sodium 143 mmol/L (136-145); Total Bilirubin 0.3 mg/dL (0.15-1.2); Total Protein 4.1 g/dL (6.6-8.7)
[2020-01-23 14:58] LABS: PATH Referral YES
[2020-01-23 15:28] LABS: Magnesium 2.1 mg/dL (1.7-2.3)
[2020-01-23] MEDS: cefTRIAXone 1,000 MG in sodium chloride 0.9% (plus) 50 ML 100 MG IV (15:35)
[2020-01-23 15:56] VITALS: BP 109/70; PULSE 78; RESP 18; TEMP 36.6; O2SAT 92
[2020-01-23] MEDS: calcium carbonate 500 mg Chew Tablet 1000 MG PO ×2 (16:03→22:22)
[2020-01-23 16:04] LABS: Erythrocyte Sedimentation Rate 13 mm/hr (0-15)
[2020-01-23] MEDS: metoprolol tartrate 25 mg Tablet 12.5 MG PO (17:11)
[2020-01-23] MEDS: vancomycin 750 MG in sodium chloride 0.9% 250 ML 250 MG IV (17:11)
[2020-01-23 20:00] VITALS: BP 86/51; PULSE 61; RESP 20; TEMP 36.7
[2020-01-23 20:27] LABS: Blood Urea Nitrogen 20 mg/dL (6-20); Calcium 6.7 mg/dL (8.5-10.5); Carbon Dioxide 19 mmol/L (22-29); Chloride 113 mmol/L (98-107); Glomerular Filtration Rate 9.1 mL/min (90-130); Glucose 54 mg/dL (65-115); Magnesium 2.3 mg/dL (1.7-2.3); Osmolality Calculated 292 mOsm/kg (285-295); Sodium 144 mmol/L (136-145)
[2020-01-23] MEDS: Dianeal low Ca w/1.5% dex 2,000 mL Bag 2000 ML INTRAPERIT (21:02)
--- NOTE | 2020-01-23 22:08 | PC.NURSE ---
Please note PD output was before Dialysate was administered.
[2020-01-24] VITALS: BP 114/74; PULSE 69; RESP 20; TEMP 36.6; O2SAT 97
[2020-01-24 04:00] VITALS: BP 120/74; PULSE 67; RESP 16; TEMP 36.7; O2SAT 98
[2020-01-24] MEDS: heparin 5,000 unit/mL INJ 1 mL 5000 UNIT SUBCUT (04:10)
[2020-01-24] MEDS: Dianeal low Ca w/1.5% dex 2,000 mL Bag 2000 ML INTRAPERIT (04:12)
--- NOTE | 2020-01-24 06:53 | P.CONIM_ITS ---
Providers/Reason For Consult Consulting Physican/Specialty*: General Surgery Ant Hernandez MD Reason for Consult*: Sacral decubitus wound. Attending Physician: Mj Vuong MD Primary Care Provider: Ariella Aguilera MD History of Present Illness History of Present Illness Leonie Wong is a 54 year old female who was fairly recently in [facility] in [place] for several weeks for pneumonia. At that time she developed a pressure induced ulcer on her tailbone. She is currently in a intermediate but she is unsure exactly what type of wound care is taking place. She says the area is a little bit tender. Review of Systems General: Reports: 10 or more systems reviewed and unremarkable except in HPI and below GI: Denies: abdominal pain Skin/Breast: Reports: sores (Tailbone, on extremities?minor traumatic injuries) Meds/Allergies Home Medications and Allergies Home Medications Medication Instructions Recorded Confirmed Type albuterol sulfate See Rx Instructions .ROUTE .COMPLEX 01/06/20 01/06/20 History amiodarone 200 mg PO DAILY 01/06/20 01/06/20 History aspirin [Ecotrin] 325 mg PO DAILY 01/06/20 01/06/20 History bisacodyl [Dulcolax (bisacodyl)] 10 mg [place] DAILY PRN 01/06/20 01/06/20 History calcium acetate 667 mg PO TID 01/06/20 01/06/20 History esomeprazole magnesium [Nexium] 40 mg PO DAILY 01/06/20 01/06/20 History ezetimibe [Zetia] 10 mg PO DAILY 01/06/20 01/06/20 History gentamicin 1 applic TOPICAL QID 01/06/20 01/06/20 History hydrocodone-acetaminophen [[place]] 1 tab PO Q4H PRN 01/06/20 01/06/20 History levalbuterol tartrate [Xopenex HFA] 2 puff INHALATION Q8H PRN 01/06/20 01/06/20 History levothyroxine See Rx Instructions .ROUTE .COMPLEX 01/06/20 01/09/20 History lorazepam [Lorazepam Intensol] 1 mg PO Q2H PRN 01/06/20 01/06/20 History metoprolol tartrate 12.5 mg PO BID 01/06/20 01/06/20 History morphine concentrate 0.5 mg PO Q2H PRN 01/06/20 01/09/20 History ondansetron 4 mg PO Q6H PRN 01/06/20 01/06/20 History sertraline 100 mg PO DAILY 01/06/20 01/09/20 History sorbitol See Rx Instructions .ROUTE .COMPLEX 01/06/20 01/06/20 History vit B,X-YK-czgl-selen-vit D3-E 1 tab PO DAILY 01/06/20 01/09/20 History [RenaPlex-D] doxycycline hyclate 100 mg capsule 100 mg PO BID #20 cap 01/10/20 01/10/20 Rx guaifenesin 600 mg tablet, 600 mg PO Q12H #60 tab 01/10/20 01/10/20 Rx extended release 12 hr menthol 0.44 %-zinc oxide 20.6 % 1 applic TOPICAL QID PRN #113 gm 01/10/20 01/10/20 Rx topical ointment Allergies Allergy/AdvReac Type Severity Reaction Status Date / Time blue dye Allergy Unknown ADR-Itching Unverified 01/23/20 02:06 acetaminophen [From Percocet] Allergy ADR-Itching Verified 01/06/20 20:46 cefuroxime [From Ceftin] Allergy ADR-Itching Verified 01/06/20 20:46 ibuprofen Allergy ADR-Itching Verified 01/06/20 20:46 oxycodone [From Percocet] Allergy ADR-Itching Verified 01/06/20 20:46 Current Medications Current Medications Generic Name Dose Route Start Last Admin Trade Name Freq PRN Reason Stop Dose Admin Aspirin 325 mg 01/23/20 09:00 01/23/20 10:01 Aspirin Ec PO 325 mg DAILY ZAIN Administration Calcium Carbonate 1,000 mg 01/23/20 15:00 01/23/20 22:22 Tums PO 1,000 mg TID ZAIN Administration Ezetimibe 10 mg 01/23/20 09:00 01/23/20 10:00 Zetia PO Not Given DAILY [facility] Gentamicin Sulfate 1 applic 01/23/20 09:00 01/23/20 22:22 Gentamicin Cream TOPICAL Not Given QID [facility] Heparin Sodium (Beef Lung) 5,000 unit 01/23/20 01:15 01/24/20 04:10 Heparin SUBCUT 5,000 unit Q8H ZAIN Administration Vancomycin HCl 750 mg/ Sodium 250 mls @ 250 mls/hr 01/23/20 15:00 01/23/20 17:11 Chloride IV 250 mls/hr Q48H ZAIN Administration Protocol Ceftriaxone Sodium 1,000 mg/ 50 mls @ 100 mls/hr 01/23/20 13:00 01/23/20 15:35 Sodium Chloride IV 100 mls/hr Q24H ZAIN Administration Protocol Potassium Chloride 40 meq/ 1,000 mls @ 75 mls/hr 01/23/20 13:30 01/24/20 04:39 Magnesium Sulfate 1 gm/ Sodium IV Infused Chloride .[id number] ZAIN Infusion Levothyroxine Sodium 150 mcg 01/23/20 10:30 01/23/20 10:41 Synthroid PO 150 mcg DAILY ZAIN Administration Metoprolol Tartrate 12.5 mg 01/23/20 09:00 01/23/20 17:11 Lopressor PO 12.5 mg BID ZANI Administration Ondansetron HCl 4 mg 01/23/20 01:08 01/23/20 10:41 Zofran PO 4 mg Q6H PRN Administration Nausea Pantoprazole Sodium 40 mg 01/23/20 09:00 01/23/20 10:01 Protonix PO 40 mg DAILY ZAIN Administration Peritoneal Dialysis Solution 2,000 ml 01/23/20 16:00 01/24/20 04:12 Dianeal Low Ca W/1.5% Dex INTRAPERIT 2,000 ml Q6H ZAIN Administration Potassium Chloride 40 meq 01/23/20 09:00 01/23/20 10:02 Klor-Con 10 PO 40 meq DAILY ZAIN Administration Sertraline HCl 100 mg 01/23/20 09:00 01/23/20 10:00 Zoloft PO 100 mg DAILY ZAIN Administration PFSH Acute PFSH: Medical History Depression Diabetes DVT (deep venous thrombosis) Dyslipidemia End stage renal disease GERD (gastroesophageal reflux disease) Hx of necrotizing fasciitis Hypothyroidism MRSA infection Osteoarthritis Pressure ulcer, stage III Renal failure treated with peritoneal dialysis Thyroid nodule Urolithiasis Surgical History Gastric bypass status for obesity H/O parathyroidectomy H/O ventral hernia repair History of carpal tunnel surgery History of tonsillectomy Hx of cholecystectomy Family History (Updated 01/23/20 @ 02:13 by Miladys Vazquez MD) Denies family history of Clotting disorder Chronic kidney disease (CKD) Social History Smoking and tobacco status: former smoker Alcohol intake: never Substance/Drug Use: never Household members: family Housing: House Vitals/I&O/Wt Last Vital Signs Temp 98.0 F 01/24/20 04:00 Pulse 67 01/24/20 04:00 Resp 16 01/24/20 04:00 BP 120/74 01/24/20 04:00 Pulse Ox 98 01/24/20 04:00 01/23/20 01/23/20 01/24/20 14:59 22:59 06:59 Intake Total 600 / 600 2240 / 2840 1200 / 4040 Output Total / Balance 600 / 600 2239 / 2839 1200 / 4039 Weight last 48 hrs Weight 114 lb 14.4 oz Physical Exam Narrative: EXAM NARRATIVE: The patient is resting but is arousable. Her pupils seem equal. No carotid bruits are heard. Lungs are clear anteriorly. The heart is regular. The abdomen is soft. There is a peritoneal dialysis catheter in place. The area over the patient's sacrum reveals a small oval opening measuring perhaps 1.5 to 2 cm in greatest diameter. She is very thin and has no subcutaneous tissue to speak of. The sacrum is palpable through the opening. There is some exudate present and it tunnels in every direction for a short distance. The extremities reveal multiple small areas of ecchymosis and superficial injury. She has no appreciable edema in her extremities. She can move all limbs to command. Data Micro: Micro: Microbiology 01/23/20 12:15 MRSA Culture - Fin al Nose 01/23/20 13:55 Blood Culture - Pr eliminary Blood SPECIMEN [facility] COLT 01/23/20 12:15 Gram Stain - Final Peritoneal Fluid 01/23/20 10:54 Blood Culture - Pr eliminary Blood SPECIMEN [facility] 01/23/20 06:30 C.difficile Toxin B Gene (PCR) - Fin al Stool A&P Assessment and plan (1) Pressure ulcer, stage III: I think this wound is probably going to need to intermittently be packed if there is any hope of it healing spontaneously; I will have the nurses start using some new gauze packing material once daily. There is some epibony involving the skin edges which may eventually need to be debrided. My understanding is that the patient has arrangements to be evaluated in the wound care clinic which I feel is very appropriate. Status: Acute Code(s): L89.93 - Pressure ulcer of unspecified site, stage 3 Consult Attestations Medical Necessity Statement: See admitting service's notation. Coding Level of Care Code Acute Rounding Machine Tender for Dawna Layton Diagnoses Pressure ulcer, stage III L89.93
--- NOTE | 2020-01-24 07:48 | PM.PN ---
Subjective Subjective: Interval history: feels better. no diarrhea. no moe. no cp. no sob. improved strength. Medications: Reviewed: Yes Medication Review Details: Current Medications Hydrocodone Bitart/Acetaminophen ([place] 10-325 Mg) 1 tab PO Q4H PRN PRN Reason: Pain Amiodarone HCl (Cordarone) 200 mg PO DAILY [facility] Aspirin (Aspirin Ec) 325 mg PO DAILY [facility] Last Admin: 01/23/20 10:01 Dose: 325 mg Documented by: Bisacodyl (Bisac-Evac) 10 mg [place] DAILY PRN PRN Reason: Constipation Calcium Carbonate (Tums) 1,000 mg PO TID [facility] Last Admin: 01/23/20 22:22 Dose: 1,000 mg Documented by: Ezetimibe (Zetia) 10 mg PO DAILY [facility] Last Admin: 01/23/20 10:00 Dose: Not Given Documented by: Gentamicin Sulfate (Gentamicin Cream) 1 applic TOPICAL QID [facility] Last Admin: 01/23/20 22:22 Dose: Not Given Documented by: Heparin Sodium (Beef Lung) (Heparin) 5,000 unit SUBCUT Q8H [facility] Last Admin: 01/24/20 04:10 Dose: 5,000 unit Documented by: Vancomycin HCl 750 mg/ Sodium (Chloride) 250 mls @ 250 mls/hr IV Q48H [facility]; Protocol Last Admin: 01/23/20 17:11 Dose: 250 mls/hr Documented by: Ceftriaxone Sodium 1,000 mg/ (Sodium Chloride) 50 mls @ 100 mls/hr IV Q24H [facility]; Protocol Last Admin: 01/23/20 15:35 Dose: 100 mls/hr Documented by: Levothyroxine Sodium (Synthroid) 150 mcg PO DAILY [facility] Last Admin: 01/23/20 10:41 Dose: 150 mcg Documented by: Metoprolol Tartrate (Lopressor) 12.5 mg PO BID [facility] Last Admin: 01/23/20 17:11 Dose: 12.5 mg Documented by: Non-Formulary Medication (Levalbuterol Tartrate [Xopenex Hfa]) 2 puff INHALATION Q8H PRN PRN Reason: Shortness Of Breath Non-Formulary Medication (Menthol-Zinc Oxide [Calmoseptine]) 1 applic TOPICAL QID PRN PRN Reason: skin irritation Ondansetron HCl (Zofran) 4 mg PO Q6H PRN PRN Reason: Nausea Last Admin: 01/23/20 10:41 Dose: 4 mg Documented by: Pantoprazole Sodium (Protonix) 40 mg PO DAILY [facility] Last Admin: 01/23/20 10:01 Dose: 40 mg Documented by: Peritoneal Dialysis Solution (Dianeal Low Ca W/1.5% Dex) 2,000 ml INTRAPERIT Q6H [facility] Last Admin: 01/24/20 04:12 Dose: 2,000 ml Documented by: Sertraline HCl (Zoloft) 100 mg PO DAILY [facility] Last Admin: 01/23/20 10:00 Dose: 100 mg Documented by: Vitals/I&O/Wt Last Vital Signs Temp 98.0 F 01/24/20 04:00 Pulse 67 01/24/20 04:00 Resp 16 01/24/20 04:00 BP 120/74 01/24/20 04:00 Pulse Ox 98 01/24/20 04:00 01/23/20 01/24/20 01/24/20 22:59 06:59 14:59 Intake Total 2240 / 2840 1200 / 4040 Output Total Balance 2239 / 2839 1200 / 4039 Weight last 48 hrs Weight 52.118 kg Physical Exam Narrative: EXAM NARRATIVE: elderly comfortable in bed. bp stable heent- nc/at, eomi neck supple, no jvp lungs clear heart reg abd soft, + PD ctaheter ext no edema neuro- a,a, o x 3 Data : 01/23/20 06:24 01/23/20 19:50 Micro: Microbiology 01/23/20 12:15 MRSA Culture - Final Nose 01/23/20 13:55 Blood Culture - Preliminary Blood SPECIMEN COLLECTED 01/23/20 12:15 Gram Stain - Final Peritoneal Fluid 01/23/20 10:54 Blood Culture - Preliminary Blood SPECIMEN COLLECTED 01/23/20 06:30 C.difficile Toxin B Gene (PCR) - Final Stool A&P Additional A&P Information 1/ ESRD- cont CAPD in hospital- 4 exchanges a day of 2 liters of 1.5% glu 2. hypothyroidism- give lecothyroxine at least 2 hrs apart from phos binders 3. hypocalcemia and h/o parathyroidectomy for tertiary hyperparathyroidism- normal vit d level, await pth, phos, -replace w/ tums 4, hypokalemia and hypomagnesemia- improved w/ ivf 5. +trop as per cardiology 6. recent PNA- check vanco level and only redose if level is under 19 7. malnutrition- please start nepro 2 cans a day 8. metabolic acidosis- from renal failure 9. anemia- check iron studies, b12, and folate discussed w/ pt, RN in detail Attestations Medical Necessity Statement*: per hospitalist Time Spent in Patient Care: Greater than 35 minutes Coding Level of Care Code Acute Hot Punch Press Operator for Chg Calin
[2020-01-24 08:00] VITALS: BP 94/59; PULSE 76; RESP 16; TEMP 37.2; O2SAT 95
[2020-01-24 08:48] LABS: Alanine Aminotransferase 26 U/L (0-33); Albumin Level 1.8 g/dL (3.5-5.2); Alkaline Phosphatase 133 IU/L (35-105); Aspartate Amino Transferase 38 U/L (0-32); Blood Urea Nitrogen 18 mg/dL (6-20); Calcium 7.2 mg/dL (8.5-10.5); Carbon Dioxide 24 mmol/L (22-29); Chloride 105 mmol/L (98-107); Globulin 3.2 g/dL (1.3-4.6); Glomerular Filtration Rate 9.1 mL/min (90-130); Glucose 82 mg/dL (65-115); Magnesium 2.3 mg/dL (1.7-2.3); Osmolality Calculated 286 mOsm/kg (285-295); Phosphorus 1.9 mg/dL (2.5-4.5); Sodium 140 mmol/L (136-145); Total Bilirubin 0.3 mg/dL (0.15-1.2)
[2020-01-24 08:49] LABS: Vancomycin Trough 14.6 ug/mL (10-15)
[2020-01-24 09:11] LABS: Parathyroid Hormone 63.9 pg/mL (15-65)
[2020-01-24] MEDS: calcium carbonate 500 mg Chew Tablet 1000 MG PO (09:49)
[2020-01-24] MEDS: metoprolol tartrate 25 mg Tablet 12.5 MG PO (09:49)
[2020-01-24] MEDS: levothyroxine 50 mcg Tablet 150 MCG PO (09:49)
[2020-01-24] MEDS: ezetimibe 10 mg Tablet PO (09:49)
[2020-01-24] MEDS: b-complex-vitamin c Tablet 1 EACH PO (09:49)
[2020-01-24] MEDS: aspirin 325 mg EC Tablet PO (09:49)
[2020-01-24] MEDS: sertraline 100 mg Tablet PO (09:50)
[2020-01-24] MEDS: pantoprazole DR 40 mg Tablet PO (09:50)
[2020-01-24] MEDS: ondansetron 4 MG Tablet PO (10:10)
--- NOTE | 2020-01-24 10:25 | P.DS_ITS ---
Discharge Providers Date of Admission: 01/23/20 14:01 Date of Discharge: January 24, 2020 Attending Provider at Admission: Miladys Vazquez MD Attending Provider at Discharge: Mj Vuong MD Consults: Telemetry nephrology: Dr. Worthington Wound consult: Dr. Hernandez Primary Care Provider: Ariella Aguilera MD Diagnoses at Discharge Discharge Diagnosis (1) Pressure ulcer, stage III: Status: Acute (2) Malnourished: Status: Acute (3) Peritoneal dialysis catheter in place: Status: Acute (4) Hypomagnesemia: Status: Acute (5) Hypokalemia: Status: Acute (6) Hypotension: Status: Acute (7) Renal failure treated with peritoneal dialysis: Status: Acute (8) DVT (deep venous thrombosis): Status: Acute (9) Hypothyroidism: Status: Acute Reason for Visit Reason for Visit: Reason For Visit: HYPOKALEMIA/HYPOTENSION Hospital Course Discharge Summary: Leonie Wong is a 54 year old female who has a history of end-stage renal disease currently on peritoneal dialysis since 2016, sees Dr. Mosquera, has home health services Thursday, she was at [facility] for pneumonia and she was there for 3 to 4 weeks, developed pressure induced injury around her coccygeal bone and was transferred to [facility] at [place]. She lives with her son, quit smoking 2018, does not follow strictly renal diet, lately she was feeling more lethargic and weak, experiencing muscle cramps, she stopped taking her potassium tablets because it made her sick. She continued her peritoneal dialysis, home health services [facility] labs and called her today to get to the ER because of potassium of 1.6. At [facility] she was given 80 mEq of potassium chloride, 1 L normal saline, improved potassium from 1.6-2.1, no EKG changes were noticed, she was awake, alert. ER physician from [place] transferred to our facility for concerns i.e. hypokalemia and hypotension. As patient was hypotensive on presentation to the hospital peritoneal dialysis fluid was collected to rule out PD peritonitis. Patient's multiple electrolyte abnormalities were thought most likely because of severe protein energy malnutrition which were repleted slowly to avoid refeeding syndrome. Blood work showed severely elevated TSH up to 67 with low T3-T4 which is most likely due to noncompliance versus not taking the medication in a properly. Patient was educated and counseled in detail regarding the timing of the medications. For now patient's levothyroxine dose has not been increased as it is believed that TSH remains abnormal because of the above. Patient is supposed to get TSH levels repeated in a month. Patient had a history of DVT in the past for which she was on Coumadin for a long time which was stopped earlier this year by Dr. Mosquera so lower limb Dopplers were done which showed soft DVT in common femoral vein so lifelong anticoagulation were discussed with the patient and she was started on Eliquis as per the DVT protocol. Patient was counseled regarding the medication and was provided with coupons for the medication. For stage III ulcer in her back near the tailbone which she had developed on her prior admission for pneumonia and for which she gets dressing by wound care nurse thrice a week wound care consult was done and the wound was dressed accordingly. Patient is to follow-up with wound care clinic as an outpatient for possible debridement. Given her multiple electrode abnormalities along with thyroid abnormalities patient's amiodarone has been stopped as it not really sure why is patient on amiodarone and patient is also not really aware of the same. Patient has been continued on her home dose of metoprolol and remained in sinus rhythm on telemetry. Patient is been discharged in hemodynamically stable condition with all the above adjusted medications and has been counseled about the same. Physical Exam Narrative: EXAM NARRATIVE: General: No acute distress, AO x3, malnourished HEENT: PERRLA, pupils bilaterally equal and reactive Chest: Normal vesicular breath sounds, no added sounds, equal good air entry bilaterally CVS: S1-S2 regular, no murmurs, no tachycardia, no gallops, no rubs Abdomen: Soft, mild tenderness and right lower quadrant, site of peritoneal dialysis looks healthy, no organomegaly, bowel sounds present Neuro: No focal deficits, no facial deformity, AO x3, power 5/5 in all limbs Decubitus: She has a circular 0.5 tunneling stage IV ulcer present in the sacral area, covered with dressing which is not soaked, on removing dressing there is mild purulent discharge present. Discharge Data Data Completed and Pending: Completed Studies During Hospitalization Category [place] [id number] Routin e Ultrasound 01/23/20 13:56 Completed Pending at discharge Category Date Time Status Blood Culture Sta t Lab 01/23/20 13:55 Results Body Fluid Cultur e & GS Stat Lab 01/23/20 12:15 Results Comprehensive Met abolic Panel AM LA BS Lab 01/25/20 04:00 Ordered Comprehensive Met abolic Panel AM LA BS Lab 01/26/20 04:00 Ordered Magnesium AM LABS Lab 01/25/20 04:00 Ordered Magnesium AM LABS Lab 01/26/20 04:00 Ordered Phosphorus AM LAB S Lab 01/25/20 04:00 Ordered Phosphorus AM LAB S Lab 01/26/20 04:00 Ordered Vancomycin Trough Timed Lab 01/25/20 16:00 Ordered Wound Culture and Gram Stain Routin e Lab 01/23/20 13:56 Results Labs from last 24 hours 01/24/20 01/24/20 01/24/20 08:25 08:25 08:25 Differential Comme nt ESR Sodium 140 Potassium 3.0 L Chloride 105 Carbon Dioxide 24 Anion Gap 14.0 BUN 18 Creatinine 5.0 H GFR Calculation 9.1 L Glucose 82 Calculated Osmolal ity 286 Calcium 7.2 L Phosphorus 1.9 L Magnesium 2.3 Total Bilirubin 0.3 AST 38 H ALT 26 Alkaline Phosphata se 133 H C-Reactive Protein Total Protein 5.0 L D Albumin 1.8 L Globulin 3.2 25-OH Vitamin D To joselin TSH Free T4 Free T3 PTH Intact 63.9 Calcium (PTH Intac t) 7.0 L Random Cortisol Fluid Color Fluid Appearance Fluid WBC Fluid RBC Fld Polynuclear WB Cs # Fld Polynuclear WB Cs % Fl Mononucl WBCs # (Auto) Fl Mononuclear % A uto Peritoneal pH Peritoneal Tot Pro tein Peritoneal Glucose Vancomycin Trough 14.6 01/23/20 01/23/20 01/23/20 19:50 13:55 13:55 Differential Comme nt ESR Sodium 144 143 Potassium 4.0 3.1 L Chloride 113 H 109 H Carbon Dioxide 19 L 27 Anion Gap 16.0 10.1 BUN 20 17 Creatinine 5.0 H 4.9 H GFR Calculation 9.1 L 9.3 L Glucose 54 L 67 Calculated Osmolal ity 292 291 Calcium 6.7 L 6.5 L Phosphorus Magnesium 2.3 2.1 Total Bilirubin 0.3 AST 32 ALT 22 Alkaline Phosphata se 114 H C-Reactive Protein 20.3 H Total Protein 4.1 L Albumin 1.4 L Globulin 2.7 25-OH Vitamin D To joselin TSH Free T4 Free T3 PTH Intact Calcium (PTH Intac t) Random Cortisol Fluid Color Fluid Appearance Fluid WBC Fluid RBC Fld Polynuclear WB Cs # Fld Polynuclear WB Cs % Fl Mononucl WBCs # (Auto) Fl Mononuclear % A uto Peritoneal pH Peritoneal Tot Pro tein Peritoneal Glucose Vancomycin Trough 01/23/20 01/23/20 01/23/20 12:15 10:54 06:24 Differential Comme nt Yes ESR 13 Sodium Potassium Chloride Carbon Dioxide Anion Gap BUN Creatinine GFR Calculation Glucose Calculated Osmolal ity Calcium Phosphorus Magnesium Total Bilirubin AST ALT Alkaline Phosphata se C-Reactive Protein Total Protein Albumin Globulin 25-OH Vitamin D To joselin TSH Free T4 Free T3 PTH Intact Calcium (PTH Intac t) Random Cortisol 22.99 H Fluid Color Colorless Fluid Appearance Clear Fluid WBC 9 Fluid RBC 0 Fld Polynuclear WB Cs # 0.001 Fld Polynuclear WB Cs % 11.100 Fl Mononucl WBCs # (Auto) 0.008 Fl Mononuclear % A uto 88.900 Peritoneal pH 6.5 Peritoneal Tot Pro tein 0.3 Peritoneal Glucose 123.0 Vancomycin Trough 01/23/20 01/23/20 06:24 06:24 Differential Comme nt ESR Sodium Potassium Chloride Carbon Dioxide Anion Gap BUN Creatinine GFR Calculation Glucose Calculated Osmolal ity Calcium Phosphorus Magnesium Total Bilirubin AST ALT Alkaline Phosphata se C-Reactive Protein Total Protein Albumin Globulin 25-OH Vitamin D To joselin 31 TSH 67.05 H Free T4 0.69 L Free T3 0.8 L PTH Intact Calcium (PTH Intac t) Random Cortisol Fluid Color Fluid Appearance Fluid WBC Fluid RBC Fld Polynuclear WB Cs # Fld Polynuclear WB Cs % Fl Mononucl WBCs # (Auto) Fl Mononuclear % A uto Peritoneal pH Peritoneal Tot Pro tein Peritoneal Glucose Vancomycin Trough Vitals: Last Vital Signs Temp 98.9 F 01/24/20 08:00 Pulse 76 01/24/20 08:00 Resp 16 01/24/20 08:00 BP 94/59 01/24/20 08:00 Pulse Ox 95 01/24/20 08:00 Discharge Plan Discharge Patient Disposition: Home, Self-Care Condition: Stable Prescriptions: New levothyroxine 50 mcg Tablet 150 mcg PO DAILY Qty: 30 RF: 0 calcium carbonate 200 mg calcium (500 mg) Tablet,Chewable 1,000 mg PO TID Qty: 90 RF: 0 Eliquis DVT-PE Treat 30D Start 5 mg (74 tabs) tablets,dose pack See Rx Instructions .ROUTE .COMPLEX Qty: 74 RF: 0 levofloxacin 500 mg tablet 500 mg PO DAILY 3 Days RF: 0 Continued Calmoseptine 0.44-20.6 % ointment 1 applic TOPICAL QID PRN (Reason: skin irritation) Qty: 113 RF: 1 guaifenesin [Mucinex] 600 mg tablet extended release 12hr 600 mg PO Q12H Qty: 60 RF: 1 sertraline 100 mg tablet 100 mg PO DAILY RF: 0 gentamicin 0.1 % Cream 1 applic TOPICAL QID RF: 0 levalbuterol tartrate [Xopenex HFA] 45 mcg/actuation Hfa Aerosol Inhaler 2 puff INHALATION Q8H PRN (Reason: Shortness Of Breath) RF: 0 RenaPlex-D 800 mcg-12.5 mg -2,000 unit Tablet 1 tab PO DAILY RF: 0 esomeprazole magnesium [Nexium] 40 mg Capsule,Delayed Release(Dr/Ec) 40 mg PO DAILY RF: 0 morphine concentrate 100 mg/5 mL (20 mg/mL) solution 0.5 mg PO Q2H PRN (Reason: Pain) RF: 0 hydrocodone-acetaminophen [Success] 10-325 mg tablet 1 tab PO Q4H PRN (Reason: Pain) RF: 0 aspirin [Ecotrin] 325 mg tablet,delayed release (DR/EC) 325 mg PO DAILY RF: 0 bisacodyl [Dulcolax (bisacodyl)] 10 mg suppository 10 mg VA DAILY PRN (Reason: Constipation) RF: 0 ondansetron 4 mg tablet,disintegrating 4 mg PO Q6H PRN (Reason: Nausea) RF: 0 lorazepam [Lorazepam Intensol] 2 mg/mL concentrate 1 mg PO Q2H PRN (Reason: Anxiety) RF: 0 ezetimibe [Zetia] 10 mg tablet 10 mg PO DAILY RF: 0 metoprolol tartrate 25 mg tablet 12.5 mg PO BID RF: 0 Discontinued doxycycline hyclate 100 mg capsule 100 mg PO BID Qty: 20 RF: 0 albuterol sulfate 2.5 mg /3 mL (0.083 %) solution for nebulization See Rx Instructions .ROUTE .COMPLEX RF: 0 amiodarone 200 mg tablet 200 mg PO DAILY RF: 0 levothyroxine 150 mcg tablet See Rx Instructions .ROUTE .COMPLEX RF: 0 calcium acetate 667 mg Capsule 667 mg PO TID RF: 0 No Action sorbitol 70 % Solution See Rx Instructions .ROUTE .COMPLEX RF: 0 Discharge Orders: Discharge Order (Routine); Ordered 01/24/20 Ordered By: Mj Vuong Other Ambulatory Orders: Basic Metabolic Panel (Routine) Timeframe: 2 Weeks Facility: [facility] - Location: Lab - Main Lab Ordered By: Mj Vuong Thyroid Stimulating Hormone (Routine) Timeframe: 6 Months Facility: [facility] - Location: Lab - Main Lab Ordered By: Mj Vuong Referrals: Ariella Aguilera MD [Primary Care Provider] - 2 weeks Pablo Mosquera MD [Referring] - 1 month WOUND [facility]ARE CL[facility]IC, [Staff Physician] - 2 weeks Discharge Diet: Usual diet Discharge Activity: Resume usual activity Activity Restrictions/Additional Instructions: Please take levothyroxine the first medication in the morning without any other medications at that time. Take all the medications at least 2 hours after levothyroxine. Eliquis 10 mg twice daily for 7 days followed by 5 mg twice daily indefinitely for now. Please follow-up with wound care clinic for possible debridement later. Please dress wound as per the instructions. Wound is probably going to need to intermittently be packed if there is any hope of it healing spontaneously; I will have the nurses start using some new gauze packing material once daily. Discharge Attestations Time Spent in Discharge Care*: greater than 30 min Quality Metrics Clinical Quality Measures During this hospital stay, did patient experience: VTE Contraindication to Overlap Therapy: Overlap therapy prescribed VTE Discharge Education: Education about anticoagulant therapy/Care Notes given Coding Level of Care Code Acute Assistant Unit Forester for Chg Fwd Diagnoses Pressure ulcer, stage III L89.93 Malnourished E46 Peritoneal dialysis catheter in place Z99.2 Hypomagnesemia E83.42 Hypokalemia E87.6 Hypotension I95.9 Renal failure treated with peritoneal dialysis N19; Z99.2 DVT (deep venous thrombosis) I82.409 Hypothyroidism E03.9
--- NOTE | 2020-01-24 11:14 | PC.CHAP ---
Pastoral Care Encounter/Spiritual Assessment Type of Contact [] Declined transportation job titles visit [] Patient/Family/Request visit [] Outpatient visit [] Follow-up visit [] Physician referral [] Code/Alert [x] Routine visit [] Staff referral [] Actively dying [] Patient sleeping [] Family support [] [] Out of room [] Palliative care [] [] Receiving care in room [] Pre-surgical visit [] Trauma [] Long length of stay [] ICU visit [] Other: Relational/Emotional Strength [x] Patient feels connected with others/family/visitors/staff [] Distress [] Loneliness/isolation [] Abandonment Spirituality of Patient [x] Person of Gabrielle [] Attends Mormonism of their Gabrielle [x] Believes in Prayer [x] Reads Bible or Jew materials [] There are Spiritual issues to be addressed Gaggerman Interventions [x] Prayer [x] Active listening [x] Non-anxious presence [x] Spiritual/emotional support [] Crisis/trauma care [x] Spiritual counseling [] Bereavement support [] Provided bereavement packet [] Provided Bible/devotional materials [] Provided toy/stuffed animal, coloring book to patient or family member [] Provided Communion [] Anointing/Wheeler [] Salvation [] Completed spiritual assessment [] Other: Impact on Illness or Injury [] Angry [] Fearful [] Anxious [] Often cries [] Exhaustion [] Unable to work [] Unable to attend tenriism [] Unable to walk/stand [] Unable to read [] Unable to drive [] Unable to eat/drink [] Unable to sleep [] Unable to be with family [] Patient intubated [x] Other: n/a Summary Time spent with patient 5 minutes x
[2020-01-24 12:16] VITALS: BP 94/59; PULSE 76; RESP 16; TEMP 37.2; O2SAT 95
--- NOTE | 2020-01-24 14:10 | PC.NURSE ---
PATIENT REFUSED DIALYSIS TODAY. SHE ASKED TO BE DRAINED AND NOT REFILLED DUE TO THE FACT SHE WAS BEING DISCHARGED HOME AND WOULD USE HER CYCLER TONIGHT. DR. HORAN NOTIFIED AND HE SAID THAT WAS FINE. PATIENT'S DISCHARGE WENT OVER THOROUGHLY AND MEDICATIONS EXPLAINED. THIS NURSE WROTE ON PATIENT'S DISCHARGE THE TIME OF WHICH TO TAKE LEVOTHYROXINE AND THEN ALL OTHER MEDS 2 HOURS LATER. NO FURTHER QUESTIONS.
--- NOTE | 2020-01-30 09:46 | PC.SOCIAL ---
Tried to reach wound care to review wound culture result with provider since patient had an appointment today at 9am and patient did not show for appointment. Sent info to Dr Vuong to decide if further orders are needed. Await response.
--- NOTE | 2020-01-31 10:51 | PC.SOCIAL ---
Discussed culture results with patient. She did not show to her appt at wound care yesterday. Notified Dr Vuong of culture he said nothing else needed but to send to wound care for review. Called Sue at Wound Care. Pt is not yet established with a provider there and missed the appt yesterday. Will send to PCP. Updated patient that she will need to follow up with her PCP to see if further treatment is necessary. Patient indicates well it has about closed up was about 3 last week and is much better. She indicates when asked that she has not been experiencing fever etc. Advised her to still contact PCP office and speak with provider Hazel Mancera or nurse. She verbalized understanding. Call place to Hazel Mancera office to report out values. Spoke with [place] area supervisor at clinic and updated her on all information above. Sent results via fax and successful confirmation of transmission received. Orquidea will update provider and review results with provider.
== END 2020-01-24 13:00 | disposition home health service (06) | DRG 640 ==
PROVIDERS: Internal Medicine Nephrology; Admitting Provider Internal Medicine; Family Provider Nurse Practitioner Family; PCP Family Medicine; Visit Provider Student in an Organized Health Care Education/Training Program
DX: E87.6 Hypokalemia (principal); L89.154 Pressure ulcer of sacral region, stage 4; E43 Unspecified severe protein-calorie malnutrition; N18.6 End stage renal disease; E83.42 Hypomagnesemia; I95.9 Hypotension, unspecified; Z68.21 Body mass index [BMI] 21.0-21.9, adult; Z99.2 Dependence on renal dialysis; Z87.891 Personal history of nicotine dependence; Z86.718 Personal history of other venous thrombosis and embolism; Z91.14 Patient's other noncompliance with medication regimen; Z79.82 Long term (current) use of aspirin; E03.9 Hypothyroidism, unspecified; E83.51 Hypocalcemia; E87.2 Acidosis; D63.1 Anemia in chronic kidney disease; F32.9 Major depressive disorder, single episode, unspecified; M19.90 Unspecified osteoarthritis, unspecified site; Z86.14 Personal history of Methicillin resistant Staphylococcus aureus infection; K21.9 Gastro-esophageal reflux disease without esophagitis; E78.5 Hyperlipidemia, unspecified; E11.22 Type 2 diabetes mellitus with diabetic chronic kidney disease; J44.9 Chronic obstructive pulmonary disease, unspecified; I25.10 Atherosclerotic heart disease of native coronary artery without angina pectoris
CPT/HCPCS: 12345; 36415; 80048; 80053; 80202; 80500; 82306; 82310; 82533; 82945; 83735; 83970; 83986; 84100; 84157; 84439; 84443; 84481; 85025; 85651; 86140; 87040; 87070; 87075; 87077; 87186; 87205; 87493; 87641; 89050; 93005; 93970; 96372; G0378; G0379; J0696; J1644; J3370; J3475; J3480; J7050; Q0162; Q3014

== ENCOUNTER 2020-02-02 13:46 | Outpatient (RCR) | payer MEDICARE, SELFPAY | END 2020-02-07 23:59 | disposition home or self-care (01) | LOC: WOUND 13:46 | PROVIDERS: Family Provider Nurse Practitioner Family; PCP Family Medicine; Visit Provider Nurse Practitioner Family | DX: I96 Gangrene, not elsewhere classified (principal); L89.153 Pressure ulcer of sacral region, stage 3 | CPT/HCPCS: 87070; 87077; 87186; 87205; 99203; 99205 ==

== ENCOUNTER 2020-02-09 02:10 | Inpatient (IN) | payer MEDICARE, SELFPAY ==
[2020-02-09] VITALS (74 sets, daily range): BP systolic 62–116; BP diastolic 38–85; PULSE 62–86; RESP 6–36; TEMP 35.8–37.5; O2SAT 45–100; BMI 21.9
--- NOTE | 2020-02-09 02:17 | XR_ITS ---
WS: [id number] PORTABLE CHEST HISTORY: cough COMPARISON: None available. Moderate pulmonary venous congestion. Compressive atelectasis at the lung bases. Small bilateral pleu ral effusions, RIGHT greater than LEFT. Cardiac size: Slightly enlarged cardiac silhouette. Mediastinum/Aorta: Mild atherosclerosis aorta. No osseous abnormality seen. Prior cholecystectomy. XR/XR chest 1V portable [id number] IMPRESSION: 1. Moderate pulmonary venous congestion. 2. Small bilateral pleural effusions, RIGHT greater than LEFT.
[2020-02-09] MEDS: ipratropium-albuterol 3 mL Neb 9 ML INHALATION (02:38)
--- NOTE | 2020-02-09 02:57 | USCV_ITS ---
Leonie Wong Age: 54 Gender: F : 1965 Exam Date: 02/09/2020 03:14 Ordering Phys: Sofiya Zhao DO Technologist: Kyle Pérez Exam Location: [facility] Indication: VASCULAR ACCESS FOR LT VENOUS CFV Findings Imaging during venous access right GSV. Conclusions Imaging during vein access. Dr. Soha Rubin DO (Electronically Signed) Final Date: 09 February 2020 12:52 S
[2020-02-09 03:05] LABS: ABG PCO2 36.5 mmHg (35-45); ABG PH Result 7.41 (7.35-7.45); Arterial Blood Gas Hematocrit 17.3 % (37-47); Base Excess ABG -1.2 mmol/L (-2.0-2.0); Blood Gas Sample Site Brachial, right; Blood Gas Sample Type Arterial; HCO3 ABG 23.3 mmol/L (22-26); Oxygen Device NRB
[2020-02-09 03:26] LABS: Ammonia 26 umol/L (11-51)
[2020-02-09 03:38] LABS: Alanine Aminotransferase 21 U/L (0-33); Albumin Level 1.2 g/dL (3.5-5.2); Alkaline Phosphatase 159 IU/L (35-105); Anion Gap 13.8 (5-19); Aspartate Amino Transferase 29 U/L (0-32); Blood Urea Nitrogen 21 mg/dL (6-20); Calcium 6.1 mg/dL (8.5-10.5); Carbon Dioxide 22 mmol/L (22-29); Chloride 103 mmol/L (98-107); Creatine Phosphokinase 126 U/L (26-192); Globulin 2.5 g/dL (1.3-4.6); Glomerular Filtration Rate 11.1 mL/min (90-130); Glucose 112 mg/dL (65-115); Lactic Sepsis W/Reflex 4.4 mmol/L (0.5-2.2); Lipase 11 U/L (13-60); Magnesium 1.6 mg/dL (1.7-2.3); NT Pro B Type Natriuretic Pept 26244 pg/mL (0-125); Osmolality Calculated 281 mOsm/kg (285-295); Sodium 137 mmol/L (136-145); Total Bilirubin 0.3 mg/dL (0.15-1.2); Total Protein 3.7 g/dL (6.6-8.7)
[2020-02-09 03:39] LABS: Alcohol Level < 10 mg/dL (0-10); Potassium 1.8 mmol/L (3.5-5.1)
--- NOTE | 2020-02-09 03:39 | PC.NURSE ---
LACTIC 4.4 AND POTASSIUM LEVEL 1.8 CRITICAL LABS REPORTED TO NURSE BY LAB. HCP NOTIFIED
--- NOTE | 2020-02-09 03:43 | XR_ITS ---
WS: [id number] PORTABLE CHEST HISTORY: cough COMPARISON: 2019 Lungs lungs are decreased. Moderate pulmonary venous congestion with mild improvement since the prior study. Small bilateral pleural effusions, RIGHT greater than LEFT. Cardiac size: Normal. Mediastinum/Aorta: Mild atherosclerosis aorta. No osseous abnormality seen. XR/XR chest 1V portable [id number] IMPRESSION: 1. Slight improvement in the moderate pulmonary venous congestion since earlie r the same day. 2. Small bilateral pleural effusions.
[2020-02-09] MEDS: levofloxacin-dextrose 5 % 750 MG/150 ML PREMIX 150 MG IV (03:44)
[2020-02-09] MEDS: sodium chloride 0.9% 1,000 ML 999 ML IV (03:45)
[2020-02-09] MEDS: lidocaine 1% INJ 50 mL INJECTION (03:45)
[2020-02-09 03:53] LABS: Eosinophils % 0.1 %; INR 3.19 (0.8-1.2); Red Cell Distribution Width 18.8 % (12.1-15.1)
--- NOTE | 2020-02-09 04:00 | PC.NURSE ---
Cleaned and dressed wound above gluteal fold.
[2020-02-09] MEDS: magnesium sulfate premix 2 GM/50 ML PIGGYBACK IV (04:02)
[2020-02-09] MEDS: potassium chloride premix 40 MEQ/100 ML PREMIX 25 MEQ IV (04:03)
[2020-02-09] MEDS: potassium chloride oral liq 20 mEq/15 mL UDC 40 MEQ PO (04:04)
--- NOTE | 2020-02-09 04:08 | ED_ITS ---
HPI - SOB/Dyspnea General: Chief Complaint: Shortness of Breath/Dyspnea Stated Complaint: SOB Time Seen by Provider: 02/09/20 02:17 History of Present Illness: HPI Narrative: Lucrecia is a 54-year-old female who comes in hypotensive and in respiratory distress. EMS reports that she has been short of breath starting today. She is had associated nausea and vomiting for the past 3 days. There is been no fever. In route the patient's blood pressures been hypotensive at 70/40 at the greatest. A pulse oximetry could not read secondary to the patient's poor perfusion. She has diffuse bruising noted. Patient at this time complains of nausea and just feeling short of breath. History from the patient is very limited secondary to her overall severity of illness. Most of her history is taken from old charts. Review of Systems General: Reports: ROS unobtainable due to medical condition (Review of systems is limited secondary to the patient's respiratory distress. Pertinent review of systems as noted in HPI.) PFS ED PFSH: Medical History Depression Diabetes DVT (deep venous thrombosis) Dyslipidemia End stage renal disease GERD (gastroesophageal reflux disease) Hx of necrotizing fasciitis Hypothyroidism MRSA infection Osteoarthritis Pressure ulcer, stage III Renal failure treated with peritoneal dialysis Thyroid nodule Urolithiasis Surgical History Gastric bypass status for obesity H/O parathyroidectomy H/O ventral hernia repair History of carpal tunnel surgery History of tonsillectomy Hx of cholecystectomy Family History Denies family history of Clotting disorder Chronic kidney disease (CKD) Social History Smoking and tobacco status: former smoker Alcohol intake: never Household members: family Housing: House Physical Exam Const: COMMON NORMALS: oriented x3 GENERAL APPEARANCE: in distress, lethargic, frail appearing and appears older than stated age ORIENTATION/CONSCIOUSNESS: Yes awake, Yes oriented to person, Yes oriented to place, Yes oriented to time and Yes lethargic HENMT: COMMON NORMALS: normocephalic, head/scalp atraumatic, hearing grossly normal bilaterally, external ears normal, EAC's normal, external nose normal and moist oral mucous membranes HEAD & SCALP: normal to inspection, normocephalic and atraumatic FACE & SINUS: normal facial exam and face symmetric NOSE: external nose normal and nares normal EXTERNAL EAR: Yes external ears normal EXTERNAL AUDITORY CANAL: EAC's normal MOUTH: tongue normal and other (Dry mucous membranes) Eye: COMMON NORMALS: PERRL, EOMs intact bilaterally, conjunctivae normal and no scleral icterus GENERAL EYE: normal appearance of both eyes and normal light reflex CONJUNCTIVA: Yes conjunctivae normal SCLERA: sclerae normal CORNEA: Yes corneas normal PUPIL: Yes PERRL DIRECT OPHTHALMOSCOPY: Yes normal light reflex Neck/C-Spine: COMMON NORMALS: full ROM, no lymphadenopathy, supple, no meningeal signs and no JVD GENERAL: Yes normal visual inspection and Yes trachea midline CERVICAL SPINE: Yes cervical ROM normal Chest: COMMONS NORMALS: inspection of chest normal and palpation of chest normal Resp: EFFORT & INSPECTION: Yes respiratory distress, Yes pursed lip breathing, Yes uses accessory muscles and Yes paradoxical thoraco-abdominal movements AUSCULTATION: rales, rhonchi and diminished lung sounds Cardio: COMMON NORMALS: no JVD, regular rate, regular rhythm, S1 normal heart sound, S2 normal heart sound, no gallops, no clicks, no murmurs and no rub JUGULAR VENOUS DISTENTION: no JVD RATE: regular rate RHYTHM: regular rhythm HEART SOUNDS: S1 normal and S2 normal GI: COMMON NORMALS: soft to palpation, no hepatosplenomegaly and no masses PALPATION: Yes soft, Yes tender (Moderate diffusely) and Yes no hepatosplenomegaly RECTAL EXAM: heme positive stool gross blood : COMMON NORMALS: Yes no CVA tenderness BLADDER/KIDNEY EXAM: Yes no CVA tenderness Back/Pelvis: COMMON NORMALS: no CVA tenderness, thoracic and lumbar spine normal to inspection, no thoracic nor lumbar tenderness and thoraco-lumbar ROM normal Extremity: COMMON NORMALS: normal to inspection, full ROM, normal capillary refill, no joint enlargement, no clubbing, cyanosis or edema and no calf tenderness OTHER: Right upper arm with dialysis catheter in place. Thrill palpated. Neuro: COMMON NORMALS: oriented x3, CN's II-XII intact bilaterally, moves all extremities, no focal motor deficits and no sensory deficits noted SENSORIUM/ORIENTATION: Yes oriented to person, Yes oriented to place, Yes oriented to time and Yes lethargic MENINGEAL SIGNS: Yes no meningeal signs Skin: COMMON NORMALS: skin turgor normal, no jaundice and no mottling NARRATIVE SKIN EXAM: Diffuse bruising in areas noted. GENERAL SKIN EXAM: turgor normal Procedures Central Line Placement Left Femoral: Time Out Performed: Yes Patient Placed on Monitor/Pulse Ox: Yes MD Prep: gown and gloves Central Line Prep: Povidone-Iodine 1% and Chlorhexidine scrub Local Anesthetic: lidocaine 1% Amount of anesthesia used (mL): 3 Ultrasound Used for Placement: Yes Central Line Lumen Inserted: triple Post Procedure: sutured in place, good blood return, all ports aspirated, flushed, capped and sterile dressing applied Patient Tolerated Procedure: well and no complications Complications: none Course Vital Signs: Vital signs: Vital Signs Temperature 97.7 F 02/09/20 02:11 Pulse Rate 78 02/09/20 04:40 Respiratory Rate 22 H 02/09/20 02:38 Blood Pressure 72/48 02/09/20 02:11 Pulse Oximetry 72 L 02/09/20 02:11 MDM - SOB/Dyspnea MDM Narrative: Medical decision making narrative: Lucrecia is a nice 54-year-old female who arrives here hypotensive, and respiratory distress and with diffuse pain. She has an elevated white blood cell count and is anemic. It is apparent that she has an acute GI bleed. Packed red blood cells are going to be given but after discussion with Dr. Vazquez we will hold off giving any Andexxa at this time. The patient is currently hemodynamically stable on Levophed and with IV fluids. Zosyn and Levaquin have been given. Patient is on a Protonix drip and is having electrolytes replaced IV but she is not tolerating anything p.o. secondary to vomiting. Peritoneal dialysis late will be drawn off and analyzed as well. Patient is going to be admitted to the ICU under the care of Dr. Vazquez. Lab Data: Labs: Lab Results 02/09/20 02/09/20 02/09/20 Range/Units 03:06 03:06 03:06 WBC 20.6 H (4.0-10.0) 10^3/ uL RBC 1.82 L (4.1-5.3) 10^6/u L Hgb 5.3 L* (11.5-15.3) g/dL Hct 13.9 L* (37.0-47.0) % MCV 76.4 L (81-99) fL MCH 29.1 (28.0-34.0) pg MCHC 38.1 H (30.0-36.0) g/dL RDW 18.8 H (12.1-15.1) % Plt Count 189 (130-400) 10^3/c mm MPV 11.4 H (7.4-10.4) fL Neut % (Auto) 85.6 % Lymph % (Auto) 8.6 % Dickson % (Auto) 4.3 % Eos % (Auto) 0.1 % Baso % (Auto) 0.1 % Neut # (Auto) 17.6 H (1.8-7.7) 10^3/u L Lymph # (Auto) 1.8 (0.8-4.8) 10^3/u L Dickson # (Auto) 0.9 (0.2-0.9) 10^3/u L Eos # (Auto) 0.0 (0.0-0.8) 10^3/u L Baso # (Auto) 0.0 (0.0-0.1) 10^3/u L Nucleated RBC % (a uto) 0.1 % Nucleated RBCs # 0.0 /100WBC PT 33.10 H (10.5-13.3) SECO NDS INR 3.19 H (0.8-1.2) Sodium 137 (136-145) mmol/L Potassium 1.8 L* (3.5-5.1) mmol/L Chloride 103 (98-107) mmol/L Carbon Dioxide 22 (22-29) mmol/L Anion Gap 13.8 (5-19) BUN 21 H (6-20) mg/dL Creatinine 4.2 H (0.5-0.9) mg/dL GFR Calculation 11.1 L (90-130) mL/min Glucose 112 (65-115) mg/dL Calculated Osmolal ity 281 L (285-295) mOsm/k g Lactic Acid (0.5-2.2) mmol/L Calcium 6.1 L (8.5-10.5) mg/dL Magnesium 1.6 L (1.7-2.3) mg/dL Total Bilirubin 0.3 (0.15-1.2) mg/dL AST 29 (0-32) U/L ALT 21 (0-33) U/L Alkaline Phosphata se 159 H (35-105) IU/L Ammonia (11-51) umol/L Creatine Kinase 126 (26-192) U/L Troponin T Baselin e (0-10) ng/mL NT-Pro-B Natriuret Pep 91883 H (0-125) pg/mL Total Protein 3.7 L (6.6-8.7) g/dL Albumin 1.2 L (3.5-5.2) g/dL Globulin 2.5 (1.3-4.6) g/dL Lipase 11 L (13-60) U/L Ethyl Alcohol < 10 (0-10) mg/dL Blood Type Rho(D) Type Antibody Screen 02/09/20 02/09/20 02/09/20 Range/Units 03:06 03:06 03:06 WBC (4.0-10.0) 10^3/ uL RBC (4.1-5.3) 10^6/u L Hgb (11.5-15.3) g/dL Hct (37.0-47.0) % MCV (81-99) fL MCH (28.0-34.0) pg MCHC (30.0-36.0) g/dL RDW (12.1-15.1) % Plt Count (130-400) 10^3/c mm MPV (7.4-10.4) fL Neut % (Auto) % Lymph % (Auto) % Dickson % (Auto) % Eos % (Auto) % Baso % (Auto) % Neut # (Auto) (1.8-7.7) 10^3/u L Lymph # (Auto) (0.8-4.8) 10^3/u L Dickson # (Auto) (0.2-0.9) 10^3/u L Eos # (Auto) (0.0-0.8) 10^3/u L Baso # (Auto) (0.0-0.1) 10^3/u L Nucleated RBC % (a uto) % Nucleated RBCs # /100WBC PT (10.5-13.3) SECO NDS INR (0.8-1.2) Sodium (136-145) mmol/L Potassium (3.5-5.1) mmol/L Chloride (98-107) mmol/L Carbon Dioxide (22-29) mmol/L Anion Gap (5-19) BUN (6-20) mg/dL Creatinine (0.5-0.9) mg/dL GFR Calculation (90-130) mL/min Glucose (65-115) mg/dL Calculated Osmolal ity (285-295) mOsm/k g Lactic Acid 4.4 H* (0.5-2.2) mmol/L Calcium (8.5-10.5) mg/dL Magnesium (1.7-2.3) mg/dL Total Bilirubin (0.15-1.2) mg/dL AST (0-32) U/L ALT (0-33) U/L Alkaline Phosphata se (35-105) IU/L Ammonia 26 (11-51) umol/L Creatine Kinase (26-192) U/L Troponin T Baselin e 177 H* (0-10) ng/mL NT-Pro-B Natriuret Pep (0-125) pg/mL Total Protein (6.6-8.7) g/dL Albumin (3.5-5.2) g/dL Globulin (1.3-4.6) g/dL Lipase (13-60) U/L Ethyl Alcohol (0-10) mg/dL Blood Type Rho(D) Type Antibody Screen 02/09/20 Range/Units 03:33 WBC (4.0-10.0) 10^3/ uL RBC (4.1-5.3) 10^6/u L Hgb (11.5-15.3) g/dL Hct (37.0-47.0) % MCV (81-99) fL MCH (28.0-34.0) pg MCHC (30.0-36.0) g/dL RDW (12.1-15.1) % Plt Count (130-400) 10^3/c mm MPV (7.4-10.4) fL Neut % (Auto) % Lymph % (Auto) % Dickson % (Auto) % Eos % (Auto) % Baso % (Auto) % Neut # (Auto) (1.8-7.7) 10^3/u L Lymph # (Auto) (0.8-4.8) 10^3/u L Dickson # (Auto) (0.2-0.9) 10^3/u L Eos # (Auto) (0.0-0.8) 10^3/u L Baso # (Auto) (0.0-0.1) 10^3/u L Nucleated RBC % (a uto) % Nucleated RBCs # /100WBC PT (10.5-13.3) SECO NDS INR (0.8-1.2) Sodium (136-145) mmol/L Potassium (3.5-5.1) mmol/L Chloride (98-107) mmol/L Carbon Dioxide (22-29) mmol/L Anion Gap (5-19) BUN (6-20) mg/dL Creatinine (0.5-0.9) mg/dL GFR Calculation (90-130) mL/min Glucose (65-115) mg/dL Calculated Osmolal ity (285-295) mOsm/k g Lactic Acid (0.5-2.2) mmol/L Calcium (8.5-10.5) mg/dL Magnesium (1.7-2.3) mg/dL Total Bilirubin (0.15-1.2) mg/dL AST (0-32) U/L ALT (0-33) U/L Alkaline Phosphata se (35-105) IU/L Ammonia (11-51) umol/L Creatine Kinase (26-192) U/L Troponin T Baselin e (0-10) ng/mL NT-Pro-B Natriuret Pep (0-125) pg/mL Total Protein (6.6-8.7) g/dL Albumin (3.5-5.2) g/dL Globulin (1.3-4.6) g/dL Lipase (13-60) U/L Ethyl Alcohol (0-10) mg/dL Blood Type A Positive Rho(D) Type Positive Antibody Screen Negative Imaging Data^: CXR: My impression: Cardiomegaly with bilateral pleural effusions and mild to moderate pulmonary vascular congestion. Occult pneumonia in the bases cannot be ruled out EKG Data^: EKG 1: Attestation: I personally reviewed and interpreted this EKG as follows: EKG Interpretation Date: 02/09/20 EKG interpretation time: 04:30 Interpretation: Sinus rhythm at 82 beats a minute, nonspecific interventricular conduction delay, no acute ST or T wave changes. Similar to previous. Critical Care Time Critical Care Time: Critical Care Time: Yes Total Critical Care Time: 30 Attestation: Critical care time was exclusive of billable procedures. Critical care time consisted of patient evaluation, initiation of resuscitation. Review of past medical records, review of laboratory markers. Critical care time consisted of making adjustments to patient's medications including vasopressors and evaluating critical electrolyte abnormalities. Critical care time also consisted of managing patient's hypotension which was felt to be multifactorial. Discharge Plan Discharge Patient Disposition: Admitted As Inpatient Clinical Impression: Hypotension, Renal failure treated with peritoneal dialysis, Hypomagnesemia, Sepsis, Acute hypokalemia, Acute GI bleeding Condition: Stable Referrals: Hazel Mancera FNP [Family Provider] - Ariella Aguilera MD [Primary Care Provider] - Coding Level of Care Code ED Clinical Engineering Director for Chg Fwd Exam Comprehensive
[2020-02-09] MEDS: ondansetron 2 mg/ML SDV 2 mL 4 MG IVP (04:16)
--- NOTE | 2020-02-09 04:18 | ECG_ITS ---
Measurements Intervals [place] Rate: 77 P: CT: 0 QRS: -37 QRSD: 101 T: 117 QT: 399 QTc: 453 SUPRAVENTRICULAR RHYTHM LEFT AXIS DEVIATION [QRS AXIS < -30] LOW QRS VOLTAGE IN PRECORDIAL LEADS [QRS DEFLECTION < 1.0 mV IN CHEST LEADS] PATTERN CONSISTENT WITH PULMONARY DISEASE MODERATE ST DEPRESSION [0.05+ mV ST DEPRESSION] ABNORMAL QRS-T ANGLE [QRS-T AXIS DIFFERENCE > 60] Compared to ECG 01/23/2020 09:44:32 Supraventricular rhythm now present Left-axis deviation now present ST (T wave) deviation now present Sinus rhythm no longer present Intraventricular conduction delay no longer present Electronically Signed On 02-09-2020 18:15:13 CDT by Miladys Broussard M.D. [email or web address]
[2020-02-09 04:20] LABS: Basophils % 0.1 %; Lymphocytes # 1.8 10^3/uL (0.8-4.8); Lymphocytes % 8.6 %; Mean Corpuscular HGB Conc 38.1 g/dL (30.0-36.0); Mean Corpuscular Hemoglobin 29.1 pg (28.0-34.0); Mean Corpuscular Volume 76.4 fL (81-99); Mean Platelet Volume 11.4 fL (7.4-10.4); Monocytes # 0.9 10^3/uL (0.2-0.9); Monocytes % 4.3 %; Neutrophils # 17.6 10^3/uL (1.8-7.7); Neutrophils % 85.6 %; Nucleated Red Blood Cells % 0.1 %; Platelet Count 189 10^3/cmm (130-400); Red Blood Count 1.82 10^6/uL (4.1-5.3); White Blood Count 20.6 10^3/uL (4.0-10.0)
[2020-02-09] MEDS: piperacillin-tazobactam 3.375 GM in sodium chloride 0.9% (plus) 50 ML IV ×2 (04:59→09:49)
[2020-02-09 05:00] LABS: Troponin(5th) Baseline 177 ng/mL (0-10)
[2020-02-09] MEDS: pantoprazole 40 MG in sodium chloride 0.9% (plus) 100 ML 20 MG IV (05:01)
[2020-02-09] MEDS: pantoprazole 40 mg SDV 80 MG IVP (05:07)
--- NOTE | 2020-02-09 05:09 | PM.HP ---
Providers/Chief Complaint Primary Care Provider: Ariella Aguilera MD Chief Complaint: SOB History of Present Illness Leonie Wong is a 54 year old female who carries diagnosis of end-stage renal disease on peritoneal dialysis since 2016, home health services visit her Thursday and Thursday, had recent admission secondary to severe electrolyte abnormality and lethargy, was discharged on Eliquis because of DVT in her right leg presented today to our emergency department with chief complaint of extreme lethargy and shortness of breath. Patient is extremely lethargic and pale, she is awake and alert able to give some details, she is able to tell us that he was having shortness of breath at rest, she does not ambulate much at home, lives with her mother and her daughter, her appetite is poor, she manages her peritoneal dialysis with the help of home health services nurse. She sees Dr. Mosquera who previously discontinued Coumadin. Eliquis was initiated on previous admission because of proximal right leg DVT. Patient is stating that she has been compliant with her medications, she has been noticing black tarry stool for quite some time. She has not noticed any fever, abdominal pain or tenderness. She does not make any urine. Diagnostics in ER revealed Anemia, hypokalemia, hypocalcemia, blood gas reveals normal pH, she was hypotensive left femoral vein access was obtained, started on levo fed in the ER, she was given 1 dose of antibiotic and was put on BiPAP to decrease work of breathing Fecal occult blood test positive She had one small episode of 3-4mL hematemesis as well She is not able to tell us when was her last dose of Eliquis, held off on starting reversal agent for Eliquis because of her superficial right leg DVT Ordered 2 units of blood, she received 80 mEq of potassium in ER along with 1 g of calcium gluconate, magnesium repleted Peritoneal sample to be obtained by the nurse Goals of care discussed in front of ER nurse, patient is full code Her sister's phone number is [phone] her name is Yolie Review of Systems Const: Reports: chills, body aches, fatigue and malaise; Denies: fever Eyes: Denies: change in vision ENMT: Denies: throat pain or uvular edema Card: Reports: shortness of breath on exertion and shortness of breath when lying down; Denies: chest pain, palpitations or swelling of feet/ankles Resp: Reports: shortness of breath and coughing up blood; Denies: productive cough or non-productive cough GI: Reports: black tarry stool; Denies: abdominal pain, nausea or vomiting : Denies: flank pain Musc: Denies: neck pain Skin/Breast: Reports: rash (Petechia purpura all over her body), new lesion, chronic lesion, changes in skin color and yellow skin; Denies: itching Neuro: Denies: headache Psych: Reports: sleeping more and change in appetite Endo: Denies: excessive urination Bertin/Lymph: Reports: easy bruising, easy bleeding, petechiae and purpura All/Imm: Denies: hives Medications/Allergies Allergies Allergy/AdvReac Type Severity Reaction Status Date / Time blue dye Allergy Unknown ADR-Itching Unverified 01/23/20 02:06 acetaminophen [From Percocet] Allergy ADR-Itching Verified 01/06/20 20:46 cefuroxime [From Ceftin] Allergy ADR-Itching Verified 01/06/20 20:46 ibuprofen Allergy ADR-Itching Verified 01/06/20 20:46 oxycodone [From Percocet] Allergy ADR-Itching Verified 01/06/20 20:46 PFSH Acute PFSH: Medical History Depression Diabetes DVT (deep venous thrombosis) Dyslipidemia End stage renal disease GERD (gastroesophageal reflux disease) Hx of necrotizing fasciitis Hypothyroidism MRSA infection Osteoarthritis Pressure ulcer, stage III Renal failure treated with peritoneal dialysis Thyroid nodule Urolithiasis Surgical History Gastric bypass status for obesity H/O parathyroidectomy H/O ventral hernia repair History of carpal tunnel surgery History of tonsillectomy Hx of cholecystectomy Family History Denies family history of Clotting disorder Chronic kidney disease (CKD) Social History Smoking and tobacco status: former smoker Alcohol intake: never Household members: family Housing: House Vitals/I&O/Wt Last Vital Signs Temp 97.7 F 02/09/20 02:11 Pulse 78 02/09/20 04:40 Resp 22 H 02/09/20 02:38 BP 72/48 02/09/20 02:11 Pulse Ox 72 L 02/09/20 02:11 Weight last 48 hrs Weight 52.617 kg Physical Exam Narrative: EXAM NARRATIVE: This is a frail elderly female Extreme pallor Able to converse and comprehend our questions Tolerating BiPAP S1, S2 no signs of congestive heart failure, clinically she looks dry Multiple petechia purpura all over her body Deep sacral stage III wound without active purulent drainage Mild trace edema bilateral lower extremity Shallow breaths, decreased airflow bilaterally Patient is edentulous FOBT positive 3 to 4 mL of hematemesis noted Peritoneal catheter also has blood-tinged fluid Data : 02/09/20 03:06 Micro: Microbiology 02/09/20 03:07 Blood Culture - Preliminary Blood SPECIMEN COLLECTED 02/09/20 03:06 Blood Culture - Preliminary Blood SPECIMEN COLLECTED A&P Assessment and plan (1) Electrolyte abnormality: Status: Acute (2) Hypomagnesemia: Status: Acute (3) Hypokalemia: Status: Acute (4) Hypotension: Status: Acute Qualifiers: Hypotension type: unspecified hypotension type Qualified Code(s): I95.9 - Hypotension, unspecified (5) Pressure ulcer, stage III: Status: Acute (6) Renal failure treated with peritoneal dialysis: Status: Acute (7) Malnourished: Status: Acute (8) DVT (deep venous thrombosis): Status: Acute (9) Hypothyroidism: Status: Acute (10) Peritoneal dialysis catheter in place: Status: Acute (11) Severe anemia: Status: Acute Additional A&P Information Severe blood loss anemia secondary to GI bleed FOBT positive, hemoglobin 5.3 dropped from 9 (hemoglobin 9 dated 01/22) Discontinue Eliquis, her baseline systolic blood pressure hangs around 90s currently on Levophed, Patient is awake and alert able to comprehend all questions, considering superficial right leg DVT we have decided not to give reversal agent and replenish her intravascular volume with PRBC Pressure support with Levophed Protonix 40 IV twice daily She is high risk for deterioration, she is full code We will consult general surgery Severe electrolyte abnormality due to malnourishment and poor p.o. intake Potassium, magnesium, calcium repleted in ER No arrhythmia noted on telemetry monitoring On previous admission amiodarone was discontinued, patient did not know why she was on amiodarone. Shortness of breath secondary to severe anemia Her blood gases normal, chest x-ray is consistent with interstitial edema Clinically she looks dry her primary team is most likely due to end-stage renal disease fluid overload Currently tolerating BiPAP very well End-stage renal disease dependent on peritoneal dialysis Sees Dr. Mosquera Patient has leukocytosis without fever, does not meet sepsis criteria, will obtain peritoneal fluid to rule infectious etiology, she has received 1 dose of Zosyn, continue Zosyn to be renally dosed Sacral ulcer present on admission, tunneled coccygeal area without active drainage Considering previous history of MRSA I would add vancomycin to be renally dosed Patient is full code DVT prophylaxis contraindicated, would avoid using SCDs because of right leg DVT Not a candidate to be on anticoagulation, highly doubt her candidacy for IVC filter placement because of underlying comorbid conditions N.p.o. Attestations Medical Necessity Statement*: Anticipating stay in the hospital to cross more than 2 midnights, currently she needs ICU for severe anemia, GI bleed and severe electrolyte abnormalities, high risk for deterioration Time Spent in Patient Care: 50 Coding Level of Care Code Acute Outsole Paraffiner for g Katherynd Diagnoses Electrolyte abnormality E87.8 Hypomagnesemia E83.42 Hypokalemia E87.6 Hypotension I95.9 Hypotension type: unspecified hypotension type Pressure ulcer, stage III L89.93 Renal failure treated with peritoneal dialysis N19; Z99.2 Malnourished E46 DVT (deep venous thrombosis) I82.409 Hypothyroidism E03.[address] dialysis catheter in place Z99.2 Severe anemia D64.9
[2020-02-09 05:20] LABS: Hematocrit 13.9 % (37.0-47.0); Hemoglobin 5.3 g/dL (11.5-15.3)
[2020-02-09 06:06] LABS: Influenza A by IFA Negative (Negative); Influenza B by IFA Negative (Negative)
[2020-02-09] MEDS: HYDROcodone-acetaminophen 5-325 mg Tablet 1 TAB PO (07:09)
[2020-02-09 07:12] LABS: Troponin 5 2HR 162.2 ng/mL (0-10); Troponin 5 2HR Delta -14.8 ABS# (0-10)
--- NOTE | 2020-02-09 07:54 | PC.NURSE ---
primary nurse did not do the assessment while taking care of this patient.
[2020-02-09 08:10] LABS: Body Fluid WBC 18 /uL; RBC, Body Fluid 0 10^3/uL (0-0)
[2020-02-09 08:12] LABS: Apprearance, Body Fluid CLEAR (CLEAR); Color, Body Fluid COLORLESS (PALE YELLOW); PATH Referral YES
--- NOTE | 2020-02-09 08:18 | ECG_ITS ---
Measurements Intervals [place] Rate: 82 P: -8 W[place]: 195 QRS: -25 QRSD: 113 T: 125 QT: 376 QTc: 439 SINUS RHYTHM BORDERLINE LEFT AXIS DEVIATION [QRS AXIS < -20] MODERATE INTRAVENTRICULAR CONDUCTION DELAY [110+ ms QRS DURATION] MINIMAL ST DEPRESSION [0.025+ mV ST DEPRESSION] ABNORMAL QRS-T ANGLE [QRS-T AXIS DIFFERENCE > 60] Compared to ECG 01/23/2020 09:44:32 ST (T wave) deviation now present Electronically Signed On 02-09-2020 18:15:04 CDT by Miladys Broussard M.D. [email or web address]
--- NOTE | 2020-02-09 09:00 | PC.NURSE ---
Pt admitted to ICU. Mottling noted on lower extremities. Anasarca noted. Severe dryness and flakiness noted. Numerous bruises noted on extremities. Central line noted in left groin, patent but oozing under dressing. PD catheter noted mid abdomen.
--- NOTE | 2020-02-09 09:30 | PC.NURSE ---
Admission assessment: Pt denies having difficulty chewing or swallowing and having a poor appetite. Sister had stated on phone that she has been aditted to [facility] ([facility]) with malnutrition and difficulty swallowing.
[2020-02-09] MEDS: morphine 4 mg/mL SDV 1 mL IVP (09:47)
[2020-02-09] MEDS: pantoprazole 40 mg SDV IVP ×2 (09:49→18:05)
[2020-02-09] MEDS: potassium chloride premix 40 MEQ/100 ML PREMIX 10 MEQ IV (09:50)
[2020-02-09 09:54] LABS: Thyroid Stimulating Hormone 27.08 uIU/mL (0.27-4.20)
[2020-02-09 09:58] LABS: Troponin 5 6HR 159.4 ng/mL (0-10); Troponin 5 6HR Delta -17.6 ng/L (0-12)
[2020-02-09 10:16] LABS: Total Protein Body Fluid < 1 g/dL
[2020-02-09] MEDS: sodium chloride 0.9% 100 ML 50 ML (12:01)
[2020-02-09] MEDS: vancomycin 750 MG in sodium chloride 0.9% 250 ML 250 MG IV (12:01)
--- NOTE | 2020-02-09 12:26 | PM.CONSULT ---
Providers/Reason For Consult Consulting Physican/Specialty*: varghese valerio md/ telenephrology Reason for Consult*: ESRD care, electrolyte abnormalitites Attending Physician: Josette Sanchez MD Primary Care Provider: Ariella Aguilera MD History of Present Illness History of Present Illness Leonie Wong is a 54 year old female w/ severe malnutrition, underlying anemia, ESRD on CCPD, htn, CAD, hypothyroidism, h/o partial parathyroidectomy for hyperparathyroidism. Recent admission for lethargy- dx w/ uncontrolled hypothyroidism and inc dose of her levothyroxine. she is also on eliquis or a DVT. Pt was admitted yesterday w/ weakness, AMS, SOB- found to have hgb of 5.2, and k of 1.8. pt is in ICU on pressors, hypotensive, sob on bipap and renal is asked to see pt. Pt is unable to give a hx. not clear if she bleed- per notes, she had some hematemesis. pt is receiving 2 u prbc. tx. Review of Systems Narrative: very confused, poor MS- limited hx available- weak, sob, Meds/Allergies Home Medications and Allergies Home Medications Medication Instructions Recorded Confirmed Type [facility]-D 1 tab PO DAILY 01/06/20 01/24/20 History aspirin [Ecotrin] 325 mg PO DAILY 01/06/20 01/24/20 History bisacodyl [Dulcolax (bisacodyl)] 10 mg [place] DAILY PRN 01/06/20 01/24/20 History esomeprazole magnesium [Nexium] 40 mg PO DAILY 01/06/20 01/24/20 History ezetimibe [Zetia] 10 mg PO DAILY 01/06/20 01/24/20 History gentamicin 1 applic TOPICAL QID 01/06/20 01/24/20 History hydrocodone-acetaminophen [[employer]] 1 tab PO Q4H PRN 01/06/20 01/24/20 History levalbuterol tartrate [Xopenex HFA] 2 puff INHALATION Q8H PRN 01/06/20 01/24/20 History lorazepam [Lorazepam Intensol] 1 mg PO Q2H PRN 01/06/20 01/24/20 History metoprolol tartrate 12.5 mg PO BID 01/06/20 01/24/20 History morphine concentrate 0.5 mg PO Q2H PRN 01/06/20 01/24/20 History ondansetron 4 mg PO Q6H PRN 01/06/20 01/24/20 History sertraline 100 mg PO DAILY 01/06/20 01/24/20 History guaifenesin 600 mg tablet, 600 mg PO Q12H #60 tab 01/10/20 01/24/20 Rx extended release 12 hr menthol 0.44 %-zinc oxide 20.6 % 1 applic TOPICAL QID PRN #113 gm 01/10/20 01/24/20 Rx topical ointment apixaban [Eliquis DVT-PE Treat 30D See Rx Instructions .ROUTE 01/24/20 Rx Start] .COMPLEX #74 each calcium carbonate 1,000 mg PO TID #90 tab 01/24/20 Rx levothyroxine 150 mcg PO DAILY #30 tab 01/24/20 Rx amoxicillin 500 mg-potassium 1 tab PO Q12H 10 Days #20 tab 01/31/20 Rx clavulanate 125 mg tablet Allergies Allergy/AdvReac Type Severity Reaction Status Date / Time blue dye Allergy Unknown ADR-Itching Unverified 01/23/20 02:06 acetaminophen [From Percocet] Allergy ADR-Itching Verified 01/06/20 20:46 cefuroxime [From Ceftin] Allergy ADR-Itching Verified 01/06/20 20:46 ibuprofen Allergy ADR-Itching Verified 01/06/20 20:46 oxycodone [From Percocet] Allergy ADR-Itching Verified 01/06/20 20:46 Current Medications Current Medications Generic Name Dose Route Start Last Admin Trade Name Freq PRN Reason Stop Dose Admin Norepinephrine Bitartrate 4 mg 254 mls @ 0 mls/hr 02/09/20 02:30 02/09/20 12:05 / Dextrose IV 9 mcg/min .Q0M ZAIN 34.3 mls/hr Titration Protocol Per Protocol Piperacillin Sod/Tazobactam 50 mls @ 12.5 mls/hr 02/09/20 10:00 02/09/20 09:49 Sod 3.375 gm/ Sodium Chloride IV 12.5 mls/hr Q12H ZAIN Administration Vancomycin HCl 750 mg/ Sodium 250 mls @ 250 mls/hr 02/09/20 12:00 02/09/20 12:01 Chloride IV 250 mls/hr Q48H ZAIN Administration Morphine Sulfate 4 mg 02/09/20 08:58 02/09/20 09:47 Morphine IVP 4 mg Q4H PRN Administration SEVERE PAIN Pantoprazole Sodium 40 mg 02/09/20 09:00 02/09/20 09:49 Protonix IVP 40 mg BID ZAIN Administration PFSH Acute PFSH: Medical History Depression Diabetes DVT (deep venous thrombosis) Dyslipidemia End stage renal disease GERD (gastroesophageal reflux disease) Hx of necrotizing fasciitis Hypothyroidism MRSA infection Osteoarthritis Pressure ulcer, stage III Renal failure treated with peritoneal dialysis Thyroid nodule Urolithiasis Surgical History Gastric bypass status for obesity H/O parathyroidectomy H/O ventral hernia repair History of carpal tunnel surgery History of tonsillectomy Hx of cholecystectomy Family History Denies family history of Clotting disorder Chronic kidney disease (CKD) Social History Smoking and tobacco status: former smoker Alcohol intake: never Household members: family Housing: House Vitals/I&O/Wt Last Vital Signs Temp 96.5 F L 02/09/20 10:00 Pulse 71 02/09/20 10:00 Resp 16 02/09/20 10:00 BP 112/69 02/09/20 10:00 Pulse Ox 100 02/09/20 10:00 02/08/20 02/09/20 02/09/20 22:59 06:59 14:59 Intake Total 0 / 0 693.747 / 693.747 Balance 0 / 0 693.747 / 693.747 Weight last 48 hrs Weight 52.617 kg Physical Exam Narrative: EXAM NARRATIVE: uncomfortable in bed, hypotensive on pressors- using bipap heent- nc/at, eomi, neck supple lungs diffuse ronchi heart reg +FIDE abd soft, +BS, + dialysis catheter ext no edema neuro- lethargic, confused in bed Data Micro: Micro: Microbiology 02/09/20 04:48 Gram Stain - Final Peritoneal Fluid 04/02/20 03:07 Blood Culture - Pr eliminary Blood SPECIMEN [facility] 02/09/20 03:06 Blood Culture - Pr eliminary Blood SPECIMEN [facility] A&P Additional A&P Information 54 year old female 1. recent rt common femoral and superficial femoral vein DVT -hold a/c 2. Anemia- hgb dropped from 9.4- 5.2- would not use eliquis on this pt. if she needs a/c, use coumadin -consider ct scan for possible abdominal or leg bleed -monitor for GI bleed -agree w/ prbc tx and monitor hgb 3. ESRD- pt is very hypotensive- -repeat abg, monitor bp- if stable enough for dialysis- currently on pressors, unlikely able to get fluids off. -if bp improves, will start PD 4. sepsis/ shock- agree w/ renal dose abx -check vanco trough prior to re-dosing 5.SOB- chf on cxr- likely from anemia and volume overload- may need to be intubated -check abg 6. electrolyte abnormalities -check vit d level s/p partial parathyroidiectomy for tertiary hyperparathyroidism -give iv k, mag, mateus check chem 7, mag, phos q 6 hrs 7. hypothyroidism- consider giving iv levothroxine 8. i do not feel that pt is a good candidate to live at home and do PD- consider NH on d/c and consider changing to Hemodialysis Consult Attestations Medical Necessity Statement: esrd, anemia, electrolyte abnormalities, septic shock, resp distress Time Spent in Patient Care: Greater than 35 minutes Coding Level of Care Code Acute [employer] Certified Internetwork Expert for Chg Calin
[2020-02-09 13:09] LABS: Alanine Aminotransferase 23 U/L (0-33); Albumin Level 1.1 g/dL (3.5-5.2); Alkaline Phosphatase 169 IU/L (35-105); Anion Gap 18.1 (5-19); Blood Urea Nitrogen 20 mg/dL (6-20); Calcium 6.1 mg/dL (8.5-10.5); Carbon Dioxide 17 mmol/L (22-29); Chloride 103 mmol/L (98-107); Globulin 2.4 g/dL (1.3-4.6); Glomerular Filtration Rate 11.7 mL/min (90-130); Glucose 190 mg/dL (65-115); Osmolality Calculated 282 mOsm/kg (285-295); Potassium 3.1 mmol/L (3.5-5.1); Sodium 135 mmol/L (136-145); Total Bilirubin 0.7 mg/dL (0.15-1.2); Total Protein 3.5 g/dL (6.6-8.7)
[2020-02-09 13:59] LABS: Basophils # 0.1 10^3/uL (0.0-0.1); Basophils % 0.2 %; Eosinophils # 0.1 10^3/uL (0.0-0.8); Eosinophils % 0.2 %; Hematocrit 29.1 % (37.0-47.0); Hemoglobin 10.4 g/dL (11.5-15.3); Lymphocytes # 1.3 10^3/uL (0.8-4.8); Lymphocytes % 4.1 %; Mean Corpuscular HGB Conc 35.7 g/dL (30.0-36.0); Mean Corpuscular Hemoglobin 29.7 pg (28.0-34.0); Mean Corpuscular Volume 83.1 fL (81-99); Mean Platelet Volume 11.7 fL (7.4-10.4); Monocytes # 1.2 10^3/uL (0.2-0.9); Monocytes % 3.7 %; Neutrophils # 28.4 10^3/uL (1.8-7.7); Neutrophils % 90.6 %; Nucleated Red Blood Cells # 0.1 /100WBC; Nucleated Red Blood Cells % 0.2 %; Platelet Count 142 10^3/cmm (130-400); Red Cell Distribution Width 19.7 % (12.1-15.1)
[2020-02-09 14:17] LABS: White Blood Count 31.3 10^3/uL (4.0-10.0)
[2020-02-09 14:19] LABS: Aspartate Amino Transferase 38 U/L (0-32)
[2020-02-09 14:26] LABS: Alanine Aminotransferase 23 U/L (0-33); Albumin Level 1.3 g/dL (3.5-5.2); Alkaline Phosphatase 172 IU/L (35-105); Anion Gap 15.9 (5-19); Aspartate Amino Transferase 29 U/L (0-32); Blood Urea Nitrogen 19 mg/dL (6-20); Calcium 6.2 mg/dL (8.5-10.5); Carbon Dioxide 18 mmol/L (22-29); Chloride 103 mmol/L (98-107); Globulin 2.2 g/dL (1.3-4.6); Glomerular Filtration Rate 11.7 mL/min (90-130); Glucose 184 mg/dL (65-115); Magnesium 1.8 mg/dL (1.7-2.3); Osmolality Calculated 279 mOsm/kg (285-295); Phosphorus 2.2 mg/dL (2.5-4.5); Sodium 134 mmol/L (136-145); Total Bilirubin 0.8 mg/dL (0.15-1.2); Total Protein 3.5 g/dL (6.6-8.7)
[2020-02-09 14:28] LABS: ABG PCO2 41.7 mmHg (35-45); ABG PH Result 7.31 (7.35-7.45); Alveolar-Arterial Oxygen Gradi 103.8 mmHg (5-10); Arterial Blood Gas Hematocrit 33.7 % (37-47); Base Excess ABG -4.8 mmol/L (-2.0-2.0); Blood Gas Allen Test Pos; Blood Gas Sample Site Brachial, left; Blood Gas Sample Type Arterial; HCO3 ABG 21.2 mmol/L (22-26); HGB O2 Sat 97.3 % (95-100); Ionized Calcium Level - ABG 0.9 mmol/L (1.1-1.4); Oxygen Saturation ABG 99.3; Potassium Level - ABG 2.6 mmol/L (3.5-5.0)
[2020-02-09 14:46] LABS: Potassium 2.9 mmol/L (3.5-5.1)
[2020-02-09] MEDS: calcium gluconate 0.1 gm/mL 10% SDV 10mL 1 GM IVP (15:32)
[2020-02-09] MEDS: midodrine 5 mg TABLET 10 MG PO (16:04)
--- NOTE | 2020-02-09 22:05 | P.PN_ITS ---
Subjective Subjective: Interval history: Patient seen and examined at ~11am today. Continues to be on levophed @9mc, remains on Bipap, ABG WNL. Medications: Reviewed: Yes Vitals/I&O/Wt Last Vital Signs Temp 98.1 F 02/09/20 18:00 Pulse 66 02/09/20 20:00 Resp 8 L 02/09/20 20:00 BP 85/50 02/09/20 20:00 Pulse Ox 100 02/09/20 20:00 02/09/20 02/09/20 02/09/20 06:59 14:59 22:59 Intake Total 0 / 0 1192.080 / 1192.080 317.875 / 1509.955 Output Total 0 / 0 Balance 0 / 0 1192.080 / 1192.080 317.875 / 1509.955 Weight last 48 hrs Weight 52.617 kg Physical Exam Narrative: EXAM NARRATIVE: GEN: Awake, alert, overall chronically ill appearing pale lady who appears older than stated age. CVS: S1S2 N RS: B/L conducted sounds all areas Abd: Soft, nt/nd , bs+ TRACK REPAIRER: no focal motor neuro deficits Data : 02/09/20 13:45 02/09/20 13:45 Micro: Microbiology 02/09/20 04:48 Gram Stain - Final Peritoneal Fluid 02/09/20 03:07 Blood Culture - Preliminary Blood SPECIMEN COLLECTED 02/09/20 03:06 Blood Culture - Preliminary Blood SPECIMEN COLLECTED A&P Assessment and plan (1) Electrolyte abnormality: Status: Acute (2) Hypomagnesemia: Status: Acute (3) Hypokalemia: Status: Acute (4) Hypotension: Status: Acute Qualifiers: Hypotension type: unspecified hypotension type Qualified Code(s): I95.9 - Hypotension, unspecified (5) Pressure ulcer, stage III: Status: Acute (6) Renal failure treated with peritoneal dialysis: Status: Acute (7) Malnourished: Status: Acute (8) DVT (deep venous thrombosis): Status: Acute (9) Hypothyroidism: Status: Acute (10) Peritoneal dialysis catheter in place: Status: Acute (11) Severe anemia: Status: Acute Additional A&P Information Severe blood loss anemia secondary to GI bleed FOBT positive, hemoglobin 5.3 dropped from 9 (hemoglobin 9 dated 01/22) Discontinue Eliquis Protonix 40 IV twice daily s/p 2PRBC transfusion. Hb improved. Severe electrolyte abnormality Potassium, magnesium, calcium repleted No arrhythmia noted on telemetry monitoring Shortness of breath secondary to severe anemia and B/L edema Her blood gases normal, chest x-ray is consistent with interstitial edema Currently tolerating BiPAP Code sstatus was discussed with her and her POA. Patient undersatnds that if respiratory status declines, she may need intubation and mechanical ventilation, however does not wish for it to be a prolonged life support. POA agrees. End-stage renal disease dependent on peritoneal dialysis Sees Dr. Mosquera Empiric abx to be changes to imipenem given past h/o ESBL E.coli Sacral ulcer present on admission, tunneled coccygeal area without active drainage Considering previous history of MRSA I would add vancomycin to be renally dosed DVT prophylaxis contraindicated, would avoid using SCDs because of right leg DVT Not a candidate to be on anticoagulation, highly doubt her candidacy for IVC filter placement because of underlying comorbid conditions Critically ill, monitor in ICU Attestations Medical Necessity Statement*: critically ill needing ICU support Coding Level of Care Code Acute Laundry Marker Supervisor for Chg Fwd Diagnoses Electrolyte abnormality E87.8 Hypomagnesemia E83.42 Hypokalemia E87.6 Hypotension I95.9 Hypotension type: unspecified hypotension type Pressure ulcer, stage III L89.93 Renal failure treated with peritoneal dialysis N19; Z99.2 Malnourished E46 DVT (deep venous thrombosis) I82.409 Hypothyroidism E03.9 Peritoneal dialysis catheter in place Z99.2 Severe anemia D64.9
[2020-02-09 23:33] LABS: Basophils % 0.1 %; Hematocrit 25.3 % (37.0-47.0); Hemoglobin 9.2 g/dL (11.5-15.3); Lymphocytes # 2.4 10^3/uL (0.8-4.8); Lymphocytes % 8.4 %; Mean Corpuscular HGB Conc 36.4 g/dL (30.0-36.0); Mean Corpuscular Hemoglobin 29.8 pg (28.0-34.0); Mean Corpuscular Volume 81.9 fL (81-99); Mean Platelet Volume 11.8 fL (7.4-10.4); Monocytes # 1.1 10^3/uL (0.2-0.9); Monocytes % 3.8 %; Neutrophils # 24.5 10^3/uL (1.8-7.7); Neutrophils % 86.5 %; Nucleated Red Blood Cells # 0.1 /100WBC; Nucleated Red Blood Cells % 0.3 %; Platelet Count 164 10^3/cmm (130-400); Red Blood Count 3.09 10^6/uL (4.1-5.3); Red Cell Distribution Width 19.4 % (12.1-15.1); White Blood Count 28.3 10^3/uL (4.0-10.0)
[2020-02-09 23:48] LABS: Alanine Aminotransferase 20 U/L (0-33); Albumin Level 1.2 g/dL (3.5-5.2); Alkaline Phosphatase 159 IU/L (35-105); Anion Gap 14.8 (5-19); Aspartate Amino Transferase 23 U/L (0-32); Blood Urea Nitrogen 21 mg/dL (6-20); Calcium 6.2 mg/dL (8.5-10.5); Carbon Dioxide 22 mmol/L (22-29); Chloride 103 mmol/L (98-107); Glomerular Filtration Rate 11.1 mL/min (90-130); Glucose 156 mg/dL (65-115); Osmolality Calculated 284 mOsm/kg (285-295); Sodium 137 mmol/L (136-145); Total Bilirubin 0.3 mg/dL (0.15-1.2); Total Protein 3.2 g/dL (6.6-8.7)
[2020-02-10] VITALS (63 sets, daily range): BP systolic 67–115; BP diastolic 39–79; PULSE 62–77; RESP 0–24; TEMP 36.4–37.2; O2SAT 88–100
[2020-02-10 01:05] LABS: Potassium 2.8 mmol/L (3.5-5.1)
[2020-02-10] MEDS: morphine 4 mg/mL SDV 1 mL 2 MG IVP ×2 (03:47→17:34)
[2020-02-10 04:59] LABS: Basophils % 0.1 %; Hematocrit 26.1 % (37.0-47.0); Hemoglobin 9.3 g/dL (11.5-15.3); Lymphocytes # 2.5 10^3/uL (0.8-4.8); Lymphocytes % 9.3 %; Mean Corpuscular HGB Conc 35.6 g/dL (30.0-36.0); Mean Corpuscular Hemoglobin 29.2 pg (28.0-34.0); Mean Corpuscular Volume 82.1 fL (81-99); Mean Platelet Volume 11.7 fL (7.4-10.4); Monocytes % 3.9 %; Neutrophils # 22.7 10^3/uL (1.8-7.7); Neutrophils % 85.6 %; Nucleated Red Blood Cells # 0.1 /100WBC; Nucleated Red Blood Cells % 0.4 %; Platelet Count 171 10^3/cmm (130-400); Red Blood Count 3.18 10^6/uL (4.1-5.3); Red Cell Distribution Width 19.5 % (12.1-15.1); White Blood Count 26.5 10^3/uL (4.0-10.0)
[2020-02-10 05:21] LABS: Alanine Aminotransferase 19 U/L (0-33); Albumin Level 1.2 g/dL (3.5-5.2); Alkaline Phosphatase 165 IU/L (35-105); Anion Gap 14.9 (5-19); Aspartate Amino Transferase 20 U/L (0-32); Blood Urea Nitrogen 23 mg/dL (6-20); Calcium 6.4 mg/dL (8.5-10.5); Carbon Dioxide 23 mmol/L (22-29); Chloride 103 mmol/L (98-107); Globulin 2.2 g/dL (1.3-4.6); Glomerular Filtration Rate 10.8 mL/min (90-130); Glucose 134 mg/dL (65-115); Osmolality Calculated 285 mOsm/kg (285-295); Sodium 138 mmol/L (136-145); Total Bilirubin 0.3 mg/dL (0.15-1.2); Total Protein 3.4 g/dL (6.6-8.7)
[2020-02-10 05:23] LABS: Potassium 2.9 mmol/L (3.5-5.1)
--- NOTE | 2020-02-10 07:13 | PM.PN ---
Subjective Subjective: Interval history: improving. more awake, back wound. on bipap- saturating well. remains on pressors. follows commands. interactive Medications: Reviewed: Yes Medication Review Details: Current Medications Norepinephrine Bitartrate 4 mg (/ Dextrose) 254 mls @ 0 mls/hr IV .Q0M [facility]; Protocol Last Admin: 02/10/20 03:20 Dose: 8 mcg/min, 30.5 mls/hr Documented by: Vancomycin HCl 750 mg/ Sodium (Chloride) 250 mls @ 250 mls/hr IV Q48H [facility] Last Infusion: 02/09/20 13:05 Dose: Infused Documented by: Imipenem/Cilastatin Sodium 500 (mg/ Sodium Chloride) 100 mls @ 200 mls/hr IV Q12H [facility]; Protocol Stop: 02/12/20 22:44 Last Infusion: 02/09/20 23:18 Dose: Infused Documented by: Potassium Chloride (K-Guy Premix) 20 meq in 100 mls @ 50 mls/hr IV ONCE ONE Stop: 02/10/20 08:04 Last Admin: 02/10/20 06:16 Dose: 50 mls/hr Documented by: Magnesium Sulfate 1 gm/ Sodium (Chloride) 52 mls @ 104 mls/hr IV ONCE ONE Stop: 02/10/20 07:59 Morphine Sulfate (Morphine) 2 mg IVP Q4H PRN PRN Reason: SEVERE PAIN Last Admin: 02/10/20 03:47 Dose: 2 mg Documented by: Ondansetron HCl (Zofran) 4 mg IVP Q6H PRN PRN Reason: NAUSEA AND VOMITING Pantoprazole Sodium (Protonix) 40 mg IVP BID [facility] Last Admin: 02/09/20 18:05 Dose: 40 mg Documented by: Peritoneal Dialysis Solution (Dianeal Low Ca W/1.5% Dex) 2,000 ml INTRAPERIT Q6H.RESPIRATORY ZAIN Vitals/I&O/Wt Last Vital Signs Temp 98.2 F 02/10/20 06:00 Pulse 68 02/10/20 06:25 Resp 6 L 02/10/20 06:00 BP 88/58 02/10/20 06:00 Pulse Ox 100 02/10/20 06:25 02/09/20 02/10/20 02/10/20 22:59 06:59 14:59 Intake Total 317.875 / 2196.645 4630. / 3322.005 Output Total 0 / 0 0 / 0 Balance 317.875 / 5526.416 4645. / 3322.005 Weight last 48 hrs Weight 52.617 kg Physical Exam Narrative: EXAM NARRATIVE: hypotensive on pressors- using bipap more alert- improved oxygenation heent- nc/at, eomi, neck supple lungs diffuse ronchi heart reg +FIDE abd soft, +BS, + dialysis catheter ext + edema sacral decub as per RN neuro- lethargic, confused in bed Data : 02/10/20 04:25 02/10/20 04:25 Micro: Microbiology 02/09/20 03:07 Blood Culture - Preliminary Blood NEGATIVE TO DATE 02/09/20 03:06 Blood Culture - Preliminary Blood NEGATIVE TO DATE 02/09/20 04:48 Gram Stain - Final Peritoneal Fluid A&P Additional A&P Information 54 year old female 1. recent rt common femoral and superficial femoral vein DVT -hold a/c 2. Anemia- hgb dropped from 9.4- 5.2- would not use eliquis on this pt. if she needs a/c, use coumadin -consider ct scan for possible abdominal or leg bleed -monitor for GI bleed -hgb up yo 9.3 s/p 2 u prbc 3. ESRD- pt on CCPD at home. will attempt CAPD- 4 exchanges a day of 1.25% glu, low ca 2000ml PD fluids 4. sepsis/ shock- agree w/ renal dose abx -check vanco trough prior to re-dosing -send pd cell count for cell count, gram stain and cx 5. electrolyte abnormalities -check vit d level s/p partial parathyroidiectomy for tertiary hyperparathyroidism -give iv k, mag, mateus check chem 7, mag, phos q 8 hrs 7. hypothyroidism- consider giving iv levothroxine 8. i do not feel that pt is a good candidate to live at home and do PD- consider NH on d/c and consider changing to Hemodialysis PLEASE CHECK CHEMISTRIES EVERY 6- 8 HRS- CALL WITH K, MAG, PHOS RESULTS Attestations Medical Necessity Statement*: sepsis, pressor dep, ESRD, electrolyte def Time Spent in Patient Care: 16 - 35 minutes Coding Level of Care Code Acute Metal Die Finisher for Chg Calin
[2020-02-10 08:12] LABS: 25 Hydroxy Vitamin D 45 ng/mL (30-100)
[2020-02-10] MEDS: pantoprazole 40 mg SDV IVP ×2 (09:02→17:34)
--- NOTE | 2020-02-10 09:13 | PC.NURSE ---
Pt refuses to take oral Potassium supplement tablets. She stated she could not swallow them.
--- NOTE | 2020-02-10 10:13 | USCV_ITS ---
Judith Leonie Age: 54 Gender: F : 1965 Exam Date: 02/10/2020 12:00 Ordering Phys: Josette Sanchez MD Technologist: Kyle Pérez Exam Location: [facility] [place] Indication: FOLLOW UP DVT HISTORY: RT LEG DVT PROCEDURES: Comparison:. 01/23/20 Venous duplex imaging was performed in bilateral lower extremities. Serial compression, augmentation maneuvers, and spectral Doppler flow evaluation were performed. FINDINGS: Limited quality exam. Partial age indeterminate thrombus right greater saphenous vein. No DVT. Bilateral lower extremity edema. CONCLUSIONS No DVT bilateral lower extremities. Recent DVT is no longer seen. Right superficial thrombophlebitis. Dr. Soha Rubin DO (Electronically Signed) Final Date: 10 February 2020 13:18 S
--- NOTE | 2020-02-10 10:30 | P.PN_ITS ---
Subjective Subjective: Interval history: Patient is now off Bipap this mornign. she is more awake and alert, appears less lethargic. Continues to be on levphed, titrated down to 7mc today. Planned for PD. WBC 26.5 Medications: Reviewed: Yes Medication Review Details: Current Medications Norepinephrine Bitartrate 4 mg (/ Dextrose) 254 mls @ 0 mls/hr IV .Q0M [facility]; Protocol Last Admin: 02/10/20 03:20 Dose: 8 mcg/min, 30.5 mls/hr Documented by: Vancomycin HCl 750 mg/ Sodium (Chloride) 250 mls @ 250 mls/hr IV Q48H [facility] Last Infusion: 02/09/20 13:05 Dose: Infused Documented by: Imipenem/Cilastatin Sodium 500 (mg/ Sodium Chloride) 100 mls @ 200 mls/hr IV Q12H [facility]; Protocol Stop: 02/12/20 22:44 Last Infusion: 02/09/20 23:18 Dose: Infused Documented by: Potassium Chloride (K-Guy Premix) 20 meq in 100 mls @ 50 mls/hr IV ONCE ONE Stop: 02/10/20 08:04 Last Admin: 02/10/20 06:16 Dose: 50 mls/hr Documented by: Magnesium Sulfate 1 gm/ Sodium (Chloride) 52 mls @ 104 mls/hr IV ONCE ONE Stop: 02/10/20 07:59 Morphine Sulfate (Morphine) 2 mg IVP Q4H PRN PRN Reason: SEVERE PAIN Last Admin: 02/10/20 03:47 Dose: 2 mg Documented by: Ondansetron HCl (Zofran) 4 mg IVP Q6H PRN PRN Reason: NAUSEA AND VOMITING Pantoprazole Sodium (Protonix) 40 mg IVP BID [facility] Last Admin: 02/09/20 18:05 Dose: 40 mg Documented by: Peritoneal Dialysis Solution (Dianeal Low Ca W/1.5% Dex) 2,000 ml INTRAPERIT Q6H.RESPIRATORY ZAIN Vitals/I&O/Wt Last Vital Signs Temp 98.2 F 02/10/20 06:00 Pulse 75 02/10/20 08:03 Resp 6 L 02/10/20 06:00 BP 88/58 02/10/20 06:00 Pulse Ox 100 02/10/20 08:03 02/09/20 02/10/20 02/10/20 22:59 06:59 14:59 Intake Total 317.875 / 0269.132 7334.05 / 3322.005 Output Total 0 / 0 0 / 0 Balance 317.875 / 2622.220 6231.05 / 3322.005 Weight last 48 hrs Weight 52.617 kg Physical Exam Narrative: EXAM NARRATIVE: GEN: Awake, alert, chronically ill appearing, improved since yesetrday, texting on her phone at this time HEENT: NC in place 4lpm CVS: S1S2 N RS: B/L diminshed sounds 2/2 poor inspiratory effort Abd: Soft, nt/nd , bs+ DIRECTOR OF PAYROLL: no focal motor neuro deficits Data : 02/10/20 04:25 02/10/20 04:25 Micro: Microbiology 02/09/20 04:48 Gram Stain - Final Peritoneal Fluid Body Fluid Culture - Preliminary 02/09/20 03:07 Blood Culture - Preliminary Blood NEGATIVE TO DATE 02/09/20 03:06 Blood Culture - Preliminary Blood NEGATIVE TO DATE A&P Assessment and plan (1) Electrolyte abnormality: Status: Acute (2) Hypomagnesemia: Status: Acute (3) Hypokalemia: Status: Acute (4) Hypotension: Status: Acute Qualifiers: Hypotension type: unspecified hypotension type Qualified Code(s): I95.9 - Hypotension, unspecified (5) Pressure ulcer, stage III: Status: Acute (6) Renal failure treated with peritoneal dialysis: Status: Acute (7) Malnourished: Status: Acute (8) DVT (deep venous thrombosis): Status: Acute (9) Hypothyroidism: Status: Acute (10) Peritoneal dialysis catheter in place: Status: Acute (11) Severe anemia: Status: Acute Additional A&P Information Continue to monitor in ICU # GI bleed per discussion with patient's sister, she was noted to have bright red blood per rectum in her diaper at home. There is also a concern for hematemesis, patient had some clotted blood on her palate and around lips noted yesterday. No recurrent episodes since admission Protonix 40mg iv q12h # Blood loss anemia secondary to GI bleed hemoglobin 5.3 dropped from 9 on 01/22 s/p 2PRBC transfusion, currently hb stable at 9.2 Discontinue Eliquis, will likely discontinue anticoagulation altogether as given poor functional status, deconditioning and overall decline, she will remain at high risk of falls and recurrent bleeding with any mode of anticoagulation. Will discuss risk benefits ratio with patient and family once she improves further repeat LE doppler to assess if DVT still present ? IVC filter if extending over previously # Hypokalemia, hypomagnesemia Ongoing issue even as outpatient I am not certain if patient is able to perform PD as instructed- her caregivers are an elderly neighbor and 15 year old daughter, the arrangement appears to be less than ideal. This was discussed with home documentation lead. She informed me today that owing to the above, they have been considering transitoning her to HD three times a week. she has appt on 01/20 for the same. We will likely move this closer to discharge. I have been informed patient has a patent fistula to enable HD. Potassium, magnesium, calcium repleted No arrhythmia noted on telemetry monitoring # ESRD on PD, see above for plans for HD # Shortness of breath secondary to severe anemia and B/L edema Her blood gases normal, chest x-ray is consistent with interstitial edema Contine BIPAP PRn, elevate HOB, spirometry # cannot exclude sepsis Blood cx negative thus far Open sounds over sacrum vs peritonitis may be sources prior colonizers include eneterobacter (imi- I, alfredo-S), enterococcus fecalis (amp-s) and ESBL E.coli (not CRE). peritoneal gran stain with few WBCs, no organisms. cell count <50 imipenem-cilastin renally dosed for empiric coverage for now d/c vancomycin as no evidence of resistant colonizers from recent past cx Check MRSA nasal swab to ascertain colonization status C diff PCR from stool in case of diarrhea MAP goal >65 Code status was discussed with her and her POA. Patient undersatnds that if respiratory status declines, she may need intubation and mechanical ventilation, however does not wish for it to be a prolonged life support. POA agrees. DVT ppx : none pharmacologic due to GI bleed, SCDs post doppler chronically ill, currently critical , monitor in ICU Attestations Medical Necessity Statement*: continued vasopressor support in the ICU Time Spent in Patient Care: Greater than 35 minutes (>than 50% of time spent in counselling and/or direct pt care on unit) . Critical Care Time: Critical Care Time (min): 40 Coding Level of Care Code Acute Government Property Inspector for Chg Fwd Diagnoses Electrolyte abnormality E87.8 Hypomagnesemia E83.42 Hypokalemia E87.6 Hypotension I95.9 Hypotension type: unspecified hypotension type Pressure ulcer, stage III L89.93 Renal failure treated with peritoneal dialysis N19; Z99.2 Malnourished E46 DVT (deep venous thrombosis) I82.409 Hypothyroidism E03.[address]itoneal dialysis catheter in place Z99.2 Severe anemia D64.9
[2020-02-10] MEDS: potassium chloride premix 40 MEQ/100 ML PREMIX 25 MEQ IV (12:52)
[2020-02-10] MEDS: Dianeal low Ca w/1.5% dex 2,000 mL Bag 2000 ML INTRAPERIT ×2 (12:53→18:41)
[2020-02-10 13:09] LABS: Lactate (Lactic Acid level) 1.2 mmol/L (0.5-2.2)
[2020-02-10 13:10] LABS: Magnesium 2.1 mg/dL (1.7-2.3)
--- NOTE | 2020-02-10 18:02 | P.CONIM_ITS ---
Providers/Reason For Consult Consulting Physican/Specialty*: Josette Sanchez MD Reason for Consult*: GI bleed Attending Physician: Josette Sanchez MD Primary Care Provider: Ariella Aguilera MD History of Present Illness History of Present Illness Leonie Wong is a 54 year old female with end-stage renal disease on peritoneal dialysis currently on Eliquis for DVT presented with shortness of breath and weakness. As per the patient's caregiver patient had some blood on her clothes. She also apparently had some tarry stools. She denies any significant abdominal pain nausea or vomiting today. She is on BiPAP. No significant hematochezia or melena since admission Meds/Allergies Home Medications and Allergies Home Medications Medication Instructions Recorded Confirmed Type RenaPlex-D 1 tab PO DAILY 01/06/20 02/09/20 History aspirin [Ecotrin] 325 mg PO DAILY 01/06/20 02/09/20 History bisacodyl [Dulcolax (bisacodyl)] 10 mg HI DAILY PRN 01/06/20 01/24/20 History esomeprazole magnesium [Nexium] 40 mg PO DAILY 01/06/20 02/09/20 History ezetimibe [Zetia] 10 mg PO DAILY 01/06/20 01/24/20 History gentamicin 1 applic TOPICAL QID 01/06/20 01/24/20 History hydrocodone-acetaminophen [[place]] 1 tab PO Q4H PRN 01/06/20 01/24/20 History levalbuterol tartrate [Xopenex HFA] 2 puff INHALATION Q8H PRN 01/06/20 02/09/20 History lorazepam [Lorazepam Intensol] 1 mg PO Q2H PRN 01/06/20 01/24/20 History metoprolol tartrate 12.5 mg PO BID 01/06/20 02/09/20 History morphine concentrate 0.5 mg PO Q2H PRN 01/06/20 01/24/20 History ondansetron 4 mg PO Q6H PRN 01/06/20 01/24/20 History sertraline 200 mg PO DAILY 01/06/20 02/09/20 History guaifenesin 600 mg tablet, 600 mg PO Q12H #60 tab 01/10/20 01/24/20 Rx extended release 12 hr menthol 0.44 %-zinc oxide 20.6 % 1 applic TOPICAL QID PRN #113 gm 01/10/20 01/24/20 Rx topical ointment apixaban [Eliquis DVT-PE Treat 30D See Rx Instructions .ROUTE 01/24/20 Rx Start] .COMPLEX #74 each calcium carbonate 1,000 mg PO TID #90 tab 01/24/20 02/09/20 Rx levothyroxine 150 mcg PO DAILY #30 tab 01/24/20 02/09/20 Rx amoxicillin 500 mg-potassium 1 tab PO Q12H 10 Days #20 tab 01/31/20 02/09/20 Rx clavulanate 125 mg tablet Allergies Allergy/AdvReac Type Severity Reaction Status Date / Time acetaminophen [From Percocet] Allergy ADR-Itching Verified 02/10/20 06:20 cefuroxime [From Ceftin] Allergy ADR-Itching Verified 02/10/20 06:20 ibuprofen Allergy ADR-Itching Verified 02/10/20 06:20 oxycodone [From Percocet] Allergy ADR-Itching Verified 02/10/20 06:20 blue dye AdvReac Unknown ADR-Itching Verified 02/10/20 06:20 Current Medications Current Medications Generic Name Dose Route Start Last Admin Trade Name Freq PRN Reason Stop Dose Admin Norepinephrine Bitartrate 4 mg 254 mls @ 0 mls/hr 02/09/20 02:30 02/10/20 16:05 / Dextrose IV 6.5 mcg/min .Q0M ZAIN 24.8 mls/hr Titration Protocol Per Protocol Imipenem/Cilastatin Sodium 500 100 mls @ 200 mls/hr 02/09/20 22:45 02/10/20 13:15 mg/ Sodium Chloride IV 02/12/20 22:44 Infused Q12H ZAIN Infusion Protocol Morphine Sulfate 2 mg 02/09/20 22:27 02/10/20 17:34 Morphine IVP 2 mg Q4H PRN Administration SEVERE PAIN Pantoprazole Sodium 40 mg 02/09/20 09:00 02/10/20 17:34 Protonix IVP 40 mg BID ZAIN Administration PFSH Acute PFSH: Medical History Depression Diabetes DVT (deep venous thrombosis) Dyslipidemia End stage renal disease GERD (gastroesophageal reflux disease) Hx of necrotizing fasciitis Hypothyroidism MRSA infection Osteoarthritis Pressure ulcer, stage III Renal failure treated with peritoneal dialysis Thyroid nodule Urolithiasis Surgical History Gastric bypass status for obesity H/O parathyroidectomy H/O ventral hernia repair History of carpal tunnel surgery History of tonsillectomy Hx of cholecystectomy Family History Denies family history of Clotting disorder Chronic kidney disease (CKD) Social History Smoking and tobacco status: former smoker Alcohol intake: never Household members: family Housing: House Vitals/I&O/Wt Last Vital Signs Temp 97.6 F 02/10/20 17:30 Pulse 65 02/10/20 17:30 Resp 19 H 02/10/20 17:34 BP 97/58 02/10/20 17:30 Pulse Ox 91 02/10/20 17:34 02/10/20 02/10/20 02/10/20 06:59 14:59 22:59 Intake Total 1812.05 / 3322.005 552.267 / 1077.917 525.65 / 1077.917 Output Total 0 / 0 0 / 0 Balance 1812.05 / 3322.005 552.267 / 1077.917 525.65 / 1077.917 Weight last 48 hrs Weight 116 lb Weight 116 lb Physical Exam Narrative: EXAM NARRATIVE: HEENT: Normocephalic Eye: Sclera /conjunctiva normal Respiratory and chest: Bilateral clear breath sounds on auscultation Cardiovascular: Normal S1 and S2 heart sounds Abdomen: Soft to palpation, mildly tender epigastric region, PD catheter in place Neurological: Oriented to place person and time Skin: Intact, no lesions appreciated on gross exam Data Micro: Micro: Microbiology 02/09/20 04:48 Gram Stain - Final Peritoneal Fluid Body Fluid Culture - Preliminary 02/09/20 03:07 Blood Culture - Pr eliminary Blood NEGATIVE TO MICHEL E 02/09/20 03:06 Blood Culture - Pr eliminary Blood NEGATIVE TO MICHEL E A&P Assessment and plan (1) GI bleed: 54-year-old female with multiple comorbidities on dialysis, BiPAP and pressors with GI bleed. Her hemoglobin is currently stable around 8. No evidence of active GI bleed at this point. Considering her overall co morbidities, recommend conservative management with PPI and serial hemoglobin checks. If she shows any evidence of active bleeding then we can proceed with panendoscopy. Status: Acute Coding Level of Care Code Acute High Wire Artist for Chg Fwd Diagnoses GI bleed K92.2
--- NOTE | 2020-02-10 19:00 | PC.NURSE ---
Shift summary: Pt has not wanted to moved. She has refused repositioning numerous times. She sleeps with her mouth wide open, it gets dry, she prefers the mouth swabs to drinks of water. At times her speech is difficult to understand and garbled sounding. Her hearing seems impaired as she will occasionally answer questions inappropriately then answer question correctly when repeated. Anasarca very notable today. Her legs and trunk have bruised and mottled skin. PD cath dressing changed today. On her second dwell. Levophed still infusing. B/P on the softer side , SBP 90's, unable to decrease gtt much.
[2020-02-11] VITALS (101 sets, daily range): BP systolic 71–132; BP diastolic 41–82; PULSE 57–79; RESP 7–23; TEMP 36.4–36.9; O2SAT 92–100
[2020-02-11] MEDS: Dianeal low Ca w/1.5% dex 2,000 mL Bag 2000 ML INTRAPERIT ×4 (00:40→19:28)
[2020-02-11] MEDS: morphine 4 mg/mL SDV 1 mL 2 MG IVP ×2 (03:41→09:36)
[2020-02-11] MEDS: ondansetron 2 mg/ML SDV 2 mL 4 MG IVP ×2 (03:54→12:16)
[2020-02-11 03:56] LABS: Basophils % 0.1 %; Eosinophils % 0.1 %; Hematocrit 25.8 % (37.0-47.0); Hemoglobin 9.1 g/dL (11.5-15.3); Lymphocytes # 1.9 10^3/uL (0.8-4.8); Lymphocytes % 7.9 %; Mean Corpuscular HGB Conc 35.3 g/dL (30.0-36.0); Mean Corpuscular Volume 85.1 fL (81-99); Mean Platelet Volume 11.7 fL (7.4-10.4); Monocytes # 0.8 10^3/uL (0.2-0.9); Monocytes % 3.3 %; Neutrophils # 21.2 10^3/uL (1.8-7.7); Neutrophils % 87.3 %; Nucleated Red Blood Cells # 0.1 /100WBC; Nucleated Red Blood Cells % 0.4 %; Platelet Count 168 10^3/cmm (130-400); Red Blood Count 3.03 10^6/uL (4.1-5.3); Red Cell Distribution Width 20.9 % (12.1-15.1); White Blood Count 24.3 10^3/uL (4.0-10.0)
[2020-02-11 04:13] LABS: Alanine Aminotransferase 18 U/L (0-33); Albumin Level 1.2 g/dL (3.5-5.2); Alkaline Phosphatase 171 IU/L (35-105); Anion Gap 15.2 (5-19); Aspartate Amino Transferase 22 U/L (0-32); Blood Urea Nitrogen 24 mg/dL (6-20); Calcium 6.3 mg/dL (8.5-10.5); Carbon Dioxide 22 mmol/L (22-29); Chloride 100 mmol/L (98-107); Globulin 2.4 g/dL (1.3-4.6); Glomerular Filtration Rate 11.4 mL/min (90-130); Glucose 185 mg/dL (65-115); Osmolality Calculated 280 mOsm/kg (285-295); Potassium 3.2 mmol/L (3.5-5.1); Sodium 134 mmol/L (136-145); Total Bilirubin 0.3 mg/dL (0.15-1.2); Total Protein 3.6 g/dL (6.6-8.7)
[2020-02-11] MEDS: pantoprazole 40 mg SDV IVP ×2 (09:31→19:27)
[2020-02-11 09:35] LABS: Body Fluid WBC 11 /uL; RBC, Body Fluid 0 10^3/uL (0-0)
[2020-02-11 09:36] LABS: Apprearance, Body Fluid CLEAR (CLEAR); Color, Body Fluid COLORLESS (PALE YELLOW)
[2020-02-11 09:38] LABS: PATH Referral YES
--- NOTE | 2020-02-11 10:18 | P.PN_ITS ---
Subjective Subjective: Interval history: continues to be weak, mostly asleep through the day, however wakes up to have a conversation, answers all questions appropriately. No acute events. Continues on levophed, today at 5mcg. respiratory status improving. )2 sat 99% on 2lpm NC. Medications: Reviewed: Yes Vitals/I&O/Wt Last Vital Signs Temp 97.6 F 02/11/20 01:05 Pulse 57 L 02/11/20 08:48 Resp 12 02/11/20 06:30 BP 114/70 02/11/20 06:30 Pulse Ox 99 02/11/20 08:48 02/10/20 02/11/20 02/11/20 22:59 06:59 14:59 Intake Total 677.766 / 1230.033 291.397 / 1521.430 Output Total 0 / 0 Balance 677.766 / 1230.033 291.397 / 1521.430 Weight last 48 hrs Weight 52.617 kg Physical Exam Narrative: EXAM NARRATIVE: GEN: Awake, alert and oriented, continues to lay in bed asleep most of the day CVS: S1S2 N RS: CTA B/L, poor inspiratory effort. Abd: Soft, nt/nd , bs+ ELEVATOR INSTALLER: no focal neuro deficits Data : 02/11/20 03:50 02/11/20 03:50 Micro: Microbiology 02/09/20 04:48 Gram Stain - Final Peritoneal Fluid Body Fluid Culture - Preliminary A&P Assessment and plan (1) Severe anemia: Status: Acute (2) Acute hypokalemia: Status: Acute (3) Hypothyroidism: Status: Acute (4) Pressure ulcer, stage III: Status: Acute (5) Peritoneal dialysis catheter in place: Status: Acute (6) Hypomagnesemia: Status: Acute (7) Hypokalemia: Status: Acute (8) Hypotension: Status: Acute Qualifiers: Hypotension type: unspecified hypotension type Qualified Code(s): I95.9 - Hypotension, unspecified (9) Sepsis: Status: Acute Qualifiers: Acute renal failure type: unspecified Sepsis acute organ dysfunction status: with acute organ dysfunction Sepsis type: sepsis due to unspecified organism Severe sepsis acute organ dysfunction type: acute renal failure Severe sepsis shock status: with septic shock Qualified Code(s): A41.9 - Sepsis, unspecified organism; R65.21 - Severe sepsis with septic shock; N17.9 - Acute kidney failure, unspecified (10) Electrolyte abnormality: Status: Acute (11) Renal failure treated with peritoneal dialysis: Status: Acute (12) Malnourished: Status: Acute (13) DVT (deep venous thrombosis): Status: Acute Additional A&P Information Continue to monitor in ICU # GI bleed per discussion with patient's sister, she was noted to have bright red blood per rectum in her diaper at home. No recurrent episodes since admission Protonix 40mg iv q12h HB stable at 9.1 # Blood loss anemia secondary to GI bleed hemoglobin 5.3 dropped from 9 on 01/22 s/p 2PRBC transfusion, currently hb stable at 9.2 Discontinue Eliquis, will likely discontinue anticoagulation altogether as given poor functional status, deconditioning and overall decline, she will remain at high risk of falls and recurrent bleeding with any mode of anticoagulation. repeat LE doppler with resolved DVT, superficial thrombophlebitis in R leg # Hypokalemia, hypomagnesemia Ongoing issue even as outpatient I am not certain if patient is able to perform PD as instructed- her caregivers are an elderly neighbor and 15 year old daughter, the arrangement appears to be less than ideal. This was discussed with home traffic engineering technician. She informed me today that owing to the above, they have been considering transitoning her to HD three times a week. she has appt on 01/20 for the same. We will likely move this closer to discharge. I have been informed patient has a patent fistula to enable HD. Potassium, magnesium, calcium repleted No arrhythmia noted on telemetry monitoring # ESRD on PD, see above for plans for HD # Shortness of breath secondary to severe anemia and B/L edema Her blood gases normal, chest x-ray is consistent with interstitial edema Contine BIPAP PRn, elevate HOB, spirometry # cannot exclude sepsis Blood cx negative thus far Open sounds over sacrum vs peritonitis may be sources prior colonizers include eneterobacter (imi- I, alfredo-S), enterococcus fecalis (amp-s) and ESBL E.coli (not CRE). peritoneal gran stain with few WBCs, no organisms. cell count <50 imipenem-cilastin renally dosed for empiric coverage for now d/c vancomycin as no evidence of resistant colonizers from recent past cx Check MRSA nasal swab to ascertain colonization status, pending C diff PCR from stool in case of diarrhea MAP goal >65 Start midodrine 5mg TID Code status was discussed with her and her POA. Patient undersatnds that if respiratory status declines, she may need intubation and mechanical ventilation, however does not wish for it to be a prolonged life support. POA agrees. DVT ppx : none pharmacologic due to GI bleed, SCDs post doppler chronically ill, currently critical , monitor in ICU Dispo: Ideally should be in NH upon discharge, however she adamantly refuses this option. Insists on taking care of herself in spite of extensive counselling against this. Attestations Medical Necessity Statement*: ongoing ICU monitoring for hypotension on pressors, electrolyute abnormalities which need close monitoring Coding Level of Care Code Acute Masticator for Chg Fwd Diagnoses Severe anemia D64.9 Acute hypokalemia E87.6 Hypothyroidism E03.9 Pressure ulcer, stage III L89.93 Peritoneal dialysis catheter in place Z99.2 Hypomagnesemia E83.42 Hypokalemia E87.6 Hypotension I95.9 Hypotension type: unspecified hypotension type Sepsis A41.9; R65.21; N17.9 Acute renal failure type: unspecified Sepsis acute organ dysfunction status: with acute organ dysfunction Sepsis type: sepsis due to unspecified organism Severe sepsis acute organ dysfunction type: acute renal failure Severe sepsis shock status: with septic shock Electrolyte abnormality E87.8 Renal failure treated with peritoneal dialysis N19; Z99.2 Malnourished E46 DVT (deep venous thrombosis) I82.409
--- NOTE | 2020-02-11 12:46 | P.PN_ITS ---
Subjective Subjective: Interval history: hypotension Medications: Reviewed: Yes Medication Review Details: on levophed, unable to taper started CAPD - appears to be retaining dialysate Vitals/I&O/Wt Last Vital Signs Temp 97.6 F 02/11/20 07:30 Pulse 71 02/11/20 12:00 Resp 14 02/11/20 12:00 BP 78/60 02/11/20 12:00 Pulse Ox 100 02/11/20 12:00 02/10/20 02/11/20 02/11/20 22:59 06:59 14:59 Intake Total 677.766 / 1230.033 291.397 / 1521.430 62.603 / 62.603 Output Total 0 / 0 Balance 677.766 / 1230.033 291.397 / 1521.430 62.603 / 62.603 Weight last 48 hrs Weight 52.617 kg Data : 02/11/20 03:50 02/11/20 03:50 Micro: Microbiology 02/10/20 17:45 MRSA Culture - Final Nose 02/09/20 04:48 Gram Stain - Final Peritoneal Fluid Body Fluid Culture - Preliminary A&P Additional A&P Information 1. ESRD on CAPD, no evidence of peritonitis 2. Profound malnutrition 3. Hypokalemia 4. Anemia, possible GI bleed 5. Hypocalcemia Recommend: continue CAPD 1.5% QID for now. Replace KCl orally. Currently not an ideal candidate for hemodialysis due to hypotension Attestations Medical Necessity Statement*: sepsis syndrome Coding Level of Care Code Acute Student Development Specialist for Dawna Layton
[2020-02-11 14:36] LABS: Alanine Aminotransferase 16 U/L (0-33); Albumin Level 1.2 g/dL (3.5-5.2); Alkaline Phosphatase 185 IU/L (35-105); Anion Gap 14.5 (5-19); Aspartate Amino Transferase 26 U/L (0-32); Blood Urea Nitrogen 24 mg/dL (6-20); Calcium 6.2 mg/dL (8.5-10.5); Carbon Dioxide 22 mmol/L (22-29); Chloride 101 mmol/L (98-107); Globulin 2.6 g/dL (1.3-4.6); Glomerular Filtration Rate 11.1 mL/min (90-130); Glucose 148 mg/dL (65-115); Osmolality Calculated 278 mOsm/kg (285-295); Potassium 3.5 mmol/L (3.5-5.1); Sodium 134 mmol/L (136-145); Total Bilirubin 0.2 mg/dL (0.15-1.2); Total Protein 3.8 g/dL (6.6-8.7)
[2020-02-11] MEDS: midodrine 5 mg TABLET PO ×2 (16:35→21:57)
--- NOTE | 2020-02-11 19:46 | P.PN_ITS ---
Subjective Subjective: Interval history: Patient did not have any bowel movements overnight, has mild abdominal pain Vitals/I&O/Wt Last Vital Signs Temp 97.6 F 02/11/20 16:00 Pulse 79 02/11/20 19:00 Resp 14 02/11/20 19:00 BP 95/71 02/11/20 19:00 Pulse Ox 100 02/11/20 18:45 02/11/20 02/11/20 02/11/20 06:59 14:59 22:59 Intake Total 291.397 / 1521.430 62.603 / 3227.461 3164.858 / 3227.461 Output Total 1100 / 1100 Balance 291.397 / 1521.430 62.603 / 2127.461 2064.858 / 2127.461 Weight last 48 hrs Weight 116 lb Physical Exam Narrative: EXAM NARRATIVE: Abdomen: Soft, nondistended, nontender Data : 02/12/20 01:34 02/12/20 01:34 Micro: Microbiology 02/10/20 17:45 MRSA Culture - Final Nose 02/09/20 04:48 Gram Stain - Final Peritoneal Fluid Body Fluid Culture - Preliminary A&P Assessment and plan (1) Severe anemia: 54-year-old female with end-stage renal failure on anticoagulation for DVT. She has responded adequately with to transfusion and her hemoglobin has remained stable. No evidence of active bleeding. We will therefore hold off on EGD at this point. Status: Acute Attestations Medical Necessity Statement*: ESRD with anemia Coding Level of Care Code Acute Utilities Service Investigator for [facility] Fwd Diagnoses Severe anemia D64.9
[2020-02-11] MEDS: calcium carbonate 500 mg Chew Tablet 1000 MG PO (21:57)
--- NOTE | 2020-02-11 23:06 | PC.NURSE ---
Pt not wanting to be repositioned or mouth swabbed. Pt looks SOB during PD dwell time, pt sleeps with mouth wide open. Spoke with sister regarding pt wishes and further care if pt continually refuses to eat and drink. Denies pain at this time. Pt PD drained, clear yellow fluid.
[2020-02-12] VITALS (105 sets, daily range): BP systolic 74–123; BP diastolic 44–77; PULSE 65–88; RESP 8–68; TEMP 19.7–36.5; O2SAT 95–100
[2020-02-12] MEDS: Dianeal low Ca w/1.5% dex 2,000 mL Bag 2000 ML INTRAPERIT ×6 (01:21→23:17)
[2020-02-12 01:40] LABS: Basophils % 0.1 %; Eosinophils % 0.1 %; Hematocrit 24.6 % (37.0-47.0); Hemoglobin 8.6 g/dL (11.5-15.3); Lymphocytes # 2.1 10^3/uL (0.8-4.8); Mean Corpuscular Hemoglobin 30.2 pg (28.0-34.0); Mean Corpuscular Volume 86.3 fL (81-99); Mean Platelet Volume 11.5 fL (7.4-10.4); Monocytes # 0.7 10^3/uL (0.2-0.9); Monocytes % 2.8 %; Neutrophils # 22.8 10^3/uL (1.8-7.7); Neutrophils % 88.3 %; Nucleated Red Blood Cells # 0.1 /100WBC; Nucleated Red Blood Cells % 0.3 %; Platelet Count 154 10^3/cmm (130-400); Red Blood Count 2.85 10^6/uL (4.1-5.3); Red Cell Distribution Width 21.2 % (12.1-15.1); White Blood Count 25.8 10^3/uL (4.0-10.0)
[2020-02-12 02:04] LABS: Alanine Aminotransferase 15 U/L (0-33); Albumin Level 1.3 g/dL (3.5-5.2); Alkaline Phosphatase 191 IU/L (35-105); Anion Gap 13.1 (5-19); Aspartate Amino Transferase 24 U/L (0-32); Blood Urea Nitrogen 23 mg/dL (6-20); Calcium 6.4 mg/dL (8.5-10.5); Carbon Dioxide 24 mmol/L (22-29); Chloride 100 mmol/L (98-107); Globulin 2.6 g/dL (1.3-4.6); Glomerular Filtration Rate 11.7 mL/min (90-130); Glucose 152 mg/dL (65-115); Osmolality Calculated 278 mOsm/kg (285-295); Potassium 3.1 mmol/L (3.5-5.1); Sodium 134 mmol/L (136-145); Total Bilirubin 0.3 mg/dL (0.15-1.2); Total Protein 3.9 g/dL (6.6-8.7)
--- NOTE | 2020-02-12 07:33 | P.PN_ITS ---
Subjective Subjective: Interval history: lethargic, sob, on bipap and weak, levo at 4 Medications: Reviewed: Yes Medication Review Details: Current Medications Calcium Carbonate (Tums) 1,000 mg PO TID [facility] Last Admin: 02/11/20 21:57 Dose: 1,000 mg Documented by: Norepinephrine Bitartrate 4 mg (/ Dextrose) 254 mls @ 0 mls/hr IV .Q0M [facility]; Protocol Last Admin: 02/12/20 06:36 Dose: 4 mcg/min, 15.2 mls/hr Documented by: Imipenem/Cilastatin Sodium 500 (mg/ Sodium Chloride) 100 mls @ 200 mls/hr IV Q12H [facility]; Protocol Stop: 02/12/20 22:44 Last Infusion: 02/11/20 23:08 Dose: Infused Documented by: Midodrine (Proamatine) 5 mg PO TID [facility] Last Admin: 02/11/20 21:57 Dose: 5 mg Documented by: Morphine Sulfate (Morphine) 2 mg IVP Q4H PRN PRN Reason: SEVERE PAIN Last Admin: 02/11/20 09:36 Dose: 2 mg Documented by: Ondansetron HCl (Zofran) 4 mg IVP Q6H PRN PRN Reason: NAUSEA AND VOMITING Last Admin: 02/11/20 12:16 Dose: 4 mg Documented by: Pantoprazole Sodium (Protonix) 40 mg IVP BID [facility] Last Admin: 02/11/20 19:27 Dose: 40 mg Documented by: Peritoneal Dialysis Solution (Dianeal Low Ca W/1.5% Dex) 2,000 ml INTRAPERIT Q6H [facility] Last Admin: 02/12/20 06:04 Dose: 2,000 ml Documented by: Potassium Chloride (Klor-Con 10) 20 meq PO DAILY [facility] Last Admin: 02/11/20 15:47 Dose: Not Given Documented by: Vitals/I&O/Wt Last Vital Signs Temp 97.7 F 02/12/20 05:00 Pulse 73 02/12/20 06:02 Resp 11 L 02/12/20 06:00 BP 83/55 02/12/20 06:00 Pulse Ox 100 02/12/20 06:02 02/11/20 02/12/20 02/12/20 22:59 06:59 14:59 Intake Total 7304.858 / 3327.461 2289.142 / 5616.603 Output Total 2800 / 2800 2100 / 4900 Balance 464.858 / 527.461 189.142 / 716.603 Weight last 48 hrs Weight 52.617 kg Physical Exam Narrative: EXAM NARRATIVE: hypotensive on pressors- using bipap - uncomfortable heent- nc/at, eomi, neck supple lungs diffuse ronchi heart reg +FIDE abd soft, +BS, + dialysis catheter ext + edema, rue avf w/ poor bruit sacral decub as per RN neuro- lethargic, confused in bed Data : 02/12/20 01:34 02/12/20 01:34 Micro: Microbiology 02/10/20 17:45 MRSA Culture - Final Nose 02/09/20 04:48 Gram Stain - Final Peritoneal Fluid Body Fluid Culture - Preliminary A&P Additional A&P Information 1. ESRD on CAPD, no evidence of peritonitis 2. Profound malnutrition- needs iv nutrition 3. Hypokalemia, hypomag- replete iv 4. Anemia, possible GI bleed 5. Hypocalcemia- vit d and calcium 6. leukocytosis- and septic shock- iv abx as per hospitalist 7. monitor glucose Recommend: continue CAPD 1.5% 5 x/day for now. Replace KCl iv. Currently not an ideal candidate for hemodialysis due to hypotension Attestations Medical Necessity Statement*: anemia, leukocytosis, hypotension sepsis, bipap dep Time Spent in Patient Care: 16 - 35 minutes Coding Level of Care Code Acute Home Service Technician for Dawna Layton
--- NOTE | 2020-02-12 07:51 | CTR_ITS ---
PROCEDURE INFORMATION: Exam: CT Chest Without Contrast Exam date and time: 02/12/2020 8:25 AM Age: 54 years old Clinical indication: Other: Sepsis source evaluatiom; Shortness of breath; Additional info: Sepsis source evaluation TECHNIQUE: Imaging protocol: Computed tomography of the chest without contrast. Total DLP: 0.37 mGy-cm Radiation optimization: All CT scans at this facility use at least one of these dose optimization techniques: automated exposure control; mA and/or kV adjustment per patient size (includes targeted exams where dose is matched to clinical indication); or iterative reconstruction. COMPARISON: Portable chest radiograph 02/09/20. FINDINGS: Lungs: Tracheobronchial calcification. Interstitial prominence and bilateral airspace disease, consistent with pulmonary edema in the appropriate clinical setting. Additional right lower lobe atelectasis. Pleural space: Large bilateral pleural effusions. Heart: Coronary artery calcification and small pericardial effusion. Aorta: Calcification in the normal caliber thoracic aorta. Lymph nodes: 1.6 x 1.4 by 1.3 cm precarinal lymph node. Evaluation of the cristi is limited in the absence of intravenous contrast. Bones/joints: Displaced fractures of the right 7th, 8th, 9th posterior ribs. Osteopenia and degenerative change. Soft tissues: Subcutaneous edema. IMPRESSION: 1. Large bilateral pleural effusions. 2. Interstitial prominence and bilateral airspace disease, consistent with pulmonary edema in the appropriate clinical setting. Additional right lower lobe atelectasis. 3. Displaced fractures of the right 7th, 8th, 9th posterior ribs. 4. Additional findings as described above. PROCEDURE INFORMATION: Exam: CT Abdomen And Pelvis Without Contrast Exam date and time: 02/12/2020 8:25 AM Age: 54 years old Clinical indication: Other: Sepsis source evaluatiom; Shortness of breath; Additional info: Sepsis source evaluation TECHNIQUE: Imaging protocol: Computed tomography of the abdomen and pelvis without contrast. Total DLP: 0.37 mGy-cm Radiation optimization: All CT scans at this facility use at least one of these dose optimization techniques: automated exposure control; mA and/or kV adjustment per patient size (includes targeted exams where dose is matched to clinical indication); or iterative reconstruction. COMPARISON: None FINDINGS: Detailed evaluation of the abdominal and pelvic viscera is somewhat limited in the absence of intravenous contrast. Liver: No focal hepatic mass. Gallbladder and bile ducts: Status post cholecystectomy. Pancreas: No pancreatic mass or ductal dilatation. Spleen: Splenic granulomata. Adrenals: Unremarkable adrenals. Kidneys and ureters: Severe bilateral renal atrophy, consistent with chronic renal failure. Nonobstructing 7 mm right renal calculus. Stomach and bowel: Gastric bypass with mild small bowel dilatation. Right colonic wall thickening, consistent with colitis in the appropriate clinical setting. Appendix: No acute appendicitis. Intraperitoneal space: Mesenteric edema. Large quantity of intraperitoneal fluid and small foci of pneumoperitoneum, in association with peritoneal dialysis catheter in the pelvis. Vasculature: Prominent vascular calcification suggesting secondary hyperparathyroidism. Normal caliber of the abdominal aorta. Lymph nodes: Subcentimeter lymph nodes. Bladder: Nondistended bladder with mild wall thickening. Reproductive: 18 mm ovoid calcification in the left adnexa. Bones/joints: Osteopenia, degenerative change, and dextroscoliosis. Soft tissues: Diffuse subcutaneous edema and fluid in the pattern of anasarca. Additional fluid and air-filled umbilical hernia. Infiltration of subcutaneous fat and air posterior to the sacrum and coccyx. Injection granulomata. CT/CT chest abd pel wo con IMPRESSION: 1. Large quantity of intraperitoneal fluid and small foci of pneumoperitoneum, in association with peritoneal dialysis catheter in the pelvis. 2. Severe bilateral renal atrophy, consistent with chronic renal failure. 3. Nonobstructing 7 mm right renal calculus. 4. Right colonic wall thickening, consistent with colitis in the appropriate clinical setting. 5. Infiltration of subcutaneous fat and air posterior to the sacrum and coccyx. 6. Additional findings as described above. Radiation Dose CTDIVOL = (mGy): DLP = 0.37~2059. (mGy-cm)
--- NOTE | 2020-02-12 09:30 | PC.NURSE ---
While transferring patient to CT scan table left groin triple lumen was discontinued. Call placed to ER for urgent assistance to obtain IV access. ER nurse unable to access left external jugular. Patient was rushed back to ICU on carrier and ER physician arrived to attempt new central line access.
--- NOTE | 2020-02-12 09:38 | XRR_ITS ---
PROCEDURE INFORMATION: Exam: XR Chest, 1 View Exam date and time: 02/12/2020 9:39 AM Age: 54 years old Clinical indication: Device placement; Other: RT central line; Additional info: Central line placement TECHNIQUE: Imaging protocol: XR of the chest Views: 1 view. COMPARISON: CR XR chest 1V portable [id number] 02/09/2020 3:43 AM FINDINGS: Tubes, catheters and devices: Termination of right internal jugular central venous catheter in the superior vena cava. Lungs: COPD and interstitial prominence. Asymmetric basilar airspace disease and pleural effusions, right greater than left. Pleural space: No pneumothorax. Heart/Mediastinum: Normal configuration of the heart. Bones/joints: Osteopenia. Other findings: Tracheobronchial calcification. XR/XR chest 1V portable [id number] IMPRESSION: 1. Termination of right internal jugular central venous catheter in the superior vena cava. 2. Asymmetric basilar airspace disease and pleural effusions, right greater than left.
--- NOTE | 2020-02-12 10:21 | ED_ITS ---
HPI - General Adult General: Chief complaint: Shortness of Breath/Dyspnea Stated complaint: SOB Time Seen by Provider: 02/09/20 02:17 History of Present Illness: HPI narrative: Consulted by Dr. Sanchez for placement of a central line. Patient had a central line in the left femoral vein however it was dislodged and removed incidentally during patient transfer. She has been receiving intravenous pressors through the central line. PFS ED PFSH: Medical History Depression Diabetes DVT (deep venous thrombosis) Dyslipidemia End stage renal disease GERD (gastroesophageal reflux disease) Hx of necrotizing fasciitis Hypothyroidism MRSA infection Osteoarthritis Pressure ulcer, stage III Renal failure treated with peritoneal dialysis Thyroid nodule Urolithiasis Surgical History Gastric bypass status for obesity H/O parathyroidectomy H/O ventral hernia repair History of carpal tunnel surgery History of tonsillectomy Hx of cholecystectomy Family History Denies family history of Clotting disorder Chronic kidney disease (CKD) Social History Smoking and tobacco status: former smoker Alcohol intake: never Household members: family Housing: House Procedures Central Line Placement Right IJ: Time Out Performed: Yes Patient Placed on Monitor/Pulse Ox: Yes Prep: mask, gown, gloves and other (Both on Dieter covering) Central Line Prep: Chlorhexidine scrub and sterile drapes applied Local Anesthetic: lidocaine 1% Amount of anesthesia used (mL): 5 Ultrasound Used for Placement: Yes Central Line Lumen Inserted: triple Post Procedure: sutured in place, good blood return, all ports aspirated, flushed, capped and sterile dressing applied Post Procedure X-Ray: tip of catheter in good position and no pneumothorax seen Patient Tolerated Procedure: well Complications: none Course Vital Signs: Vital signs: Vital Signs Temperature 97.7 F 02/12/20 05:00 Pulse Rate 66 02/12/20 07:39 Respiratory Rate 11 L 02/12/20 06:00 Blood Pressure 83/55 02/12/20 06:00 Pulse Oximetry 100 02/12/20 07:39 MDM - General Adult MDM Narrative: Medical decision making narrative: Patient remains in the ICU. Chest x-ray done for placement shows it is in good position the catheter was sutured in place with both the hub and a lock placed on the line both sutured down to ensure good retention. Patient tolerated well continue in the ICU under the care of Dr. Sanchez. Lab Data: Labs: Lab Results 02/09/20 02/09/20 02/09/20 Range/Units 03:00 03:06 03:06 WBC 20.6 H (4.0-10.0) 10^3/ uL RBC 1.82 L (4.1-5.3) 10^6/u L Hgb 5.3 L* (11.5-15.3) g/dL Hct 13.9 L* (37.0-47.0) % MCV 76.4 L (81-99) fL MCH 29.1 (28.0-34.0) pg MCHC 38.1 H (30.0-36.0) g/dL RDW 18.8 H (12.1-15.1) % Plt Count 189 (130-400) 10^3/c mm MPV 11.4 H (7.4-10.4) fL Neut % (Auto) 85.6 % Lymph % (Auto) 8.6 % [place] % (Auto) 4.3 % Eos % (Auto) 0.1 % Baso % (Auto) 0.1 % Neut # (Auto) 17.6 H (1.8-7.7) 10^3/u L Lymph # (Auto) 1.8 (0.8-4.8) 10^3/u L [place] # (Auto) 0.9 (0.2-0.9) 10^3/u L Eos # (Auto) 0.0 (0.0-0.8) 10^3/u L Baso # (Auto) 0.0 (0.0-0.1) 10^3/u L Nucleated RBC % (a uto) 0.1 % Nucleated RBCs # 0.0 /100WBC Differential Comme nt PT 33.10 H (10.5-13.3) SECO NDS INR 3.19 H (0.8-1.2) Specimen Type Arterial Sample Site Brachial, right ABG pH 7.41 (7.35-7.45) ABG pCO2 36.5 (35-45) mmHg ABG pO2 310.0 H* (80.0-100.0) mmH g ABG HCO3 23.3 (22-26) mmol/L ABG Base Excess -1.2 (-2.0-2.0) mmol/ L Marito Test N/a Hematocrit 17.3 L (37-47) % O2 Delivery Device Nrb O2 Liters/Min 15.0 % Cargo Services Coordinator ID [email or web address] Sodium (136-145) mmol/L Potassium (3.5-5.1) mmol/L Chloride (98-107) mmol/L Carbon Dioxide (22-29) mmol/L Anion Gap (5-19) BUN (6-20) mg/dL Creatinine (0.5-0.9) mg/dL GFR Calculation (90-130) mL/min Glucose (65-115) mg/dL Calculated Osmolal ity (285-295) mOsm/k g Lactic Acid (0.5-2.2) mmol/L Calcium (8.5-10.5) mg/dL Magnesium (1.7-2.3) mg/dL Total Bilirubin (0.15-1.2) mg/dL AST (0-32) U/L ALT (0-33) U/L Alkaline Phosphata se (35-105) IU/L Ammonia (11-51) umol/L Creatine Kinase (26-192) U/L Troponin T Baselin e (0-10) ng/mL NT-Pro-B Natriuret Pep (0-125) pg/mL Total Protein (6.6-8.7) g/dL Albumin (3.5-5.2) g/dL Globulin (1.3-4.6) g/dL Lipase (13-60) U/L Fluid Color (PALE YELLOW) Fluid Appearance (CLEAR) Fluid WBC /uL Fluid RBC (0-0) 10^3/uL Fld Polynuclear WB Cs % % Fl Mononuclear % A uto % Fluid Glucose mg/dL Fluid Total Protei n g/dL Ethyl Alcohol (0-10) mg/dL Blood Type Rho(D) Type Antibody Screen Crossmatch 02/09/20 02/09/20 02/09/20 Range/Units 03:06 03:06 03:06 WBC (4.0-10.0) 10^3/ uL RBC (4.1-5.3) 10^6/u L Hgb (11.5-15.3) g/dL Hct (37.0-47.0) % MCV (81-99) fL MCH (28.0-34.0) pg MCHC (30.0-36.0) g/dL RDW (12.1-15.1) % Plt Count (130-400) 10^3/c mm MPV (7.4-10.4) fL Neut % (Auto) % Lymph % (Auto) % [place] % (Auto) % Eos % (Auto) % Baso % (Auto) % Neut # (Auto) (1.8-7.7) 10^3/u L Lymph # (Auto) (0.8-4.8) 10^3/u L [place] # (Auto) (0.2-0.9) 10^3/u L Eos # (Auto) (0.0-0.8) 10^3/u L Baso # (Auto) (0.0-0.1) 10^3/u L Nucleated RBC % (a uto) % Nucleated RBCs # /100WBC Differential Comme nt PT (10.5-13.3) SECO NDS INR (0.8-1.2) Specimen Type Sample Site ABG pH (7.35-7.45) ABG pCO2 (35-45) mmHg ABG pO2 (80.0-100.0) mmH g ABG HCO3 (22-26) mmol/L ABG Base Excess (-2.0-2.0) mmol/ L Marito Test Hematocrit (37-47) % O2 Delivery Device O2 Liters/Min % Cargo Services Coordinator ID Sodium 137 (136-145) mmol/L Potassium 1.8 L* (3.5-5.1) mmol/L Chloride 103 (98-107) mmol/L Carbon Dioxide 22 (22-29) mmol/L Anion Gap 13.8 (5-19) BUN 21 H (6-20) mg/dL Creatinine 4.2 H (0.5-0.9) mg/dL GFR Calculation 11.1 L (90-130) mL/min Glucose 112 (65-115) mg/dL Calculated Osmolal ity 281 L (285-295) mOsm/k g Lactic Acid 4.4 H* (0.5-2.2) mmol/L Calcium 6.1 L (8.5-10.5) mg/dL Magnesium 1.6 L (1.7-2.3) mg/dL Total Bilirubin 0.3 (0.15-1.2) mg/dL AST 29 (0-32) U/L ALT 21 (0-33) U/L Alkaline Phosphata se 159 H (35-105) IU/L Ammonia 26 (11-51) umol/L Creatine Kinase 126 (26-192) U/L Troponin T Baselin e (0-10) ng/mL NT-Pro-B Natriuret Pep 90096 H (0-125) pg/mL Total Protein 3.7 L (6.6-8.7) g/dL Albumin 1.2 L (3.5-5.2) g/dL Globulin 2.5 (1.3-4.6) g/dL Lipase 11 L (13-60) U/L Fluid Color (PALE YELLOW) Fluid Appearance (CLEAR) Fluid WBC /uL Fluid RBC (0-0) 10^3/uL Fld Polynuclear WB Cs % % Fl Mononuclear % A uto % Fluid Glucose mg/dL Fluid Total Protei n g/dL Ethyl Alcohol < 10 (0-10) mg/dL Blood Type Rho(D) Type Antibody Screen Crossmatch 02/09/20 02/09/20 02/09/20 Range/Units 03:06 03:33 04:25 WBC (4.0-10.0) 10^3/ uL RBC (4.1-5.3) 10^6/u L Hgb (11.5-15.3) g/dL Hct (37.0-47.0) % MCV (81-99) fL MCH (28.0-34.0) pg MCHC (30.0-36.0) g/dL RDW (12.1-15.1) % Plt Count (130-400) 10^3/c mm MPV (7.4-10.4) fL Neut % (Auto) % Lymph % (Auto) % [place] % (Auto) % Eos % (Auto) % Baso % (Auto) % Neut # (Auto) (1.8-7.7) 10^3/u L Lymph # (Auto) (0.8-4.8) 10^3/u L [place] # (Auto) (0.2-0.9) 10^3/u L Eos # (Auto) (0.0-0.8) 10^3/u L Baso # (Auto) (0.0-0.1) 10^3/u L Nucleated RBC % (a uto) % Nucleated RBCs # /100WBC Differential Comme nt Yes PT (10.5-13.3) SECO NDS INR (0.8-1.2) Specimen Type Sample Site ABG pH (7.35-7.45) ABG pCO2 (35-45) mmHg ABG pO2 (80.0-100.0) mmH g ABG HCO3 (22-26) mmol/L ABG Base Excess (-2.0-2.0) mmol/ L Marito Test Hematocrit (37-47) % O2 Delivery Device O2 Liters/Min % Cargo Services Coordinator ID Sodium (136-145) mmol/L Potassium (3.5-5.1) mmol/L Chloride (98-107) mmol/L Carbon Dioxide (22-29) mmol/L Anion Gap (5-19) BUN (6-20) mg/dL Creatinine (0.5-0.9) mg/dL GFR Calculation (90-130) mL/min Glucose (65-115) mg/dL Calculated Osmolal ity (285-295) mOsm/k g Lactic Acid (0.5-2.2) mmol/L Calcium (8.5-10.5) mg/dL Magnesium (1.7-2.3) mg/dL Total Bilirubin (0.15-1.2) mg/dL AST (0-32) U/L ALT (0-33) U/L Alkaline Phosphata se (35-105) IU/L Ammonia (11-51) umol/L Creatine Kinase (26-192) U/L Troponin T Baselin e 177 H* (0-10) ng/mL NT-Pro-B Natriuret Pep (0-125) pg/mL Total Protein (6.6-8.7) g/dL Albumin (3.5-5.2) g/dL Globulin (1.3-4.6) g/dL Lipase (13-60) U/L Fluid Color Colorless (PALE YELLOW) Fluid Appearance Clear (CLEAR) Fluid WBC 18 /uL Fluid RBC 0 (0-0) 10^3/uL Fld Polynuclear WB Cs % 72.200 % Fl Mononuclear % A uto 27.800 % Fluid Glucose 399.0 mg/dL Fluid Total Protei n < 1 g/dL Ethyl Alcohol (0-10) mg/dL Blood Type A Positive Rho(D) Type Positive Antibody Screen Negative Crossmatch See Detail Discharge Plan Discharge Patient Disposition: Admitted As Inpatient Admit Provider: Miladys Vazquez Clinical Impression: Renal failure treated with peritoneal dialysis Hypotension Qualifiers: Hypotension type: unspecified hypotension type Qualified Code(s): I95.9 - Hypotension, unspecified Condition: Stable Referrals: Hazel Mancera FNP [Family Provider] - Ariella Aguilera MD [Primary Care Provider] - Interventions: ED Discharge Assessment Last Done: 02/09/20 08:31 Discharge Date/Time: 02/09/20 08:32 Coding Level of Care Code ED Assembly Machine Tender for [facility]
--- NOTE | 2020-02-12 10:59 | P.PN_ITS ---
Subjective Subjective: Interval history: Patient had some black stools overnight, denies any abdominal pain. Her hemoglobin is stayed around 8.6 today down from 10.43 days ago Vitals/I&O/Wt Last Vital Signs Temp 97.7 F 02/12/20 05:00 Pulse 66 02/12/20 07:39 Resp 11 L 02/12/20 06:00 BP 83/55 02/12/20 06:00 Pulse Ox 100 02/12/20 10:47 02/11/20 02/12/20 02/12/20 22:59 06:59 14:59 Intake Total 3264.858 / 5616.603 2289.142 / 5616.603 Output Total 2800 / 4900 2100 / 4900 Balance 464.858 / 716.603 189.142 / 716.603 Weight last 48 hrs Weight 116 lb Physical Exam Narrative: EXAM NARRATIVE: Abdomen: Soft, nondistended, nontender Data : 02/12/20 01:34 02/12/20 01:34 Micro: Microbiology 02/09/20 04:48 Gram Stain - Final Peritoneal Fluid Body Fluid Culture - Final 02/10/20 17:45 MRSA Culture - Final Nose A&P Assessment and plan (1) Severe anemia: 54-year-old female with end-stage renal failure on anticoagulation for DVT. She has responded adequately with to transfusion and her hemoglobin has remained stable. No evidence of active bleeding. We will therefore hold off on EGD at this point. Patient's anticoagulation is going to be discontinued since her DVT has resolved on a duplex performed yesterday. If she continues to remain anemic, she will need a EGD and a colonoscopy as an outpatient in the future. Status: Acute Attestations Medical Necessity Statement*: ESRD with anemia Coding Level of Care Code Acute Custodian Supervisor for [facility] Fwd Diagnoses Severe anemia D64.9
[2020-02-12] MEDS: pantoprazole 40 mg SDV IVP ×2 (11:18→17:50)
[2020-02-12 13:37] LABS: Vancomycin Random 9.5 ug/mL (20.0-40.0)
[2020-02-12] MEDS: morphine 4 mg/mL SDV 1 mL 2 MG IVP (13:45)
--- NOTE | 2020-02-12 17:12 | P.PN_ITS ---
Subjective Subjective: Interval history: seen and examined earlier this morning. CT CAP performed earlier this morning for source evalutaion for sepsis, no discrete focal collections, however seen are B/L pleural effusions and ascitic fluid. Overnight with worsened respiratory status requiring placement on Bipap PD ongoing. MAP >65 on 2mcg levophed, however hard to pull off fluid via PD. Groin CVC was lost in CT this am, replaced with RIJ. Medications: Reviewed: Yes Vitals/I&O/Wt Last Vital Signs Temp 67.4 F L 02/12/20 16:30 Pulse 70 02/12/20 14:00 Resp 14 02/12/20 14:00 BP 85/57 02/12/20 14:00 Pulse Ox 100 02/12/20 17:06 02/12/20 02/12/20 02/12/20 06:59 14:59 22:59 Intake Total 2289.142 / 5616.603 210.707 / 210.707 Output Total 2100 / 4900 0 / 0 Balance 189.142 / 716.603 210.707 / 210.707 Physical Exam Narrative: EXAM NARRATIVE: GEN: Currently on Bipap, chronically ill appearing, appears more lethargic today, however wakes up on calling name CVS: S1S2 N RS: B/L coarse crackles all over Abd: Soft, distended, PD ongoing EXT: increasing B/L lower extremity pitting edema Data : 02/12/20 01:34 02/12/20 01:34 Micro: Microbiology 02/09/20 04:48 Gram Stain - Final Peritoneal Fluid Body Fluid Culture - Final A&P Assessment and plan (1) Severe anemia: Status: Acute (2) Acute hypokalemia: (3) Hypothyroidism: Status: Acute (4) Pressure ulcer, stage III: Status: Acute (5) Peritoneal dialysis catheter in place: Status: Acute (6) Hypomagnesemia: Status: Acute (7) Hypokalemia: Status: Acute (8) Hypotension: Status: Acute Qualifiers: Hypotension type: unspecified hypotension type Qualified Code(s): I95.9 - Hypotension, unspecified (9) Sepsis: Qualifiers: Acute renal failure type: unspecified Sepsis acute organ dysfunction status: with acute organ dysfunction Sepsis type: sepsis due to unspecified organism Severe sepsis acute organ dysfunction type: acute renal failure Severe sepsis shock status: with septic shock Qualified Code(s): A41.9 - Sepsis, unspecified organism; R65.21 - Severe sepsis with septic shock; N17.9 - Acute kidney failure, unspecified (10) Electrolyte abnormality: Status: Acute (11) Renal failure treated with peritoneal dialysis: Status: Acute (12) Malnourished: Status: Acute (13) DVT (deep venous thrombosis): Status: Acute Additional A&P Information Continue to monitor in ICU # GI bleed per discussion with patient's sister, she was noted to have bright red blood per rectum in her diaper at home. No recurrent episodes since admission Protonix 40mg iv q12h s/p 2PRBC transfusion HB at 8.6 , down from 9.1, continue to monitor # Blood loss anemia secondary to GI bleed hemoglobin 5.3 dropped from 9 on 01/22 s/p 2PRBC transfusion, currently hb stable, watch closely Discontinue Eliquis, will likely discontinue anticoagulation altogether as given poor functional status, deconditioning and overall decline, she will remain at high risk of falls and recurrent bleeding with any mode of anticoagulation. repeat LE doppler with resolved DVT, superficial thrombophlebitis in R leg # Hypokalemia, hypomagnesemia Ongoing issue even as outpatient I am not certain if patient is able to perform PD as instructed- her caregivers are an elderly neighbor and 15 year old daughter, the arrangement appears to be less than ideal. This was discussed with home applications packager. She informed me today that owing to the above, they have been considering transitoning her to HD three times a week. she has appt on 01/20 for the same. We will likely move this closer to discharge. I have been informed patient has a patent fistula to enable HD. Potassium, magnesium, calcium repleted No arrhythmia noted on telemetry monitoring # ESRD on PD Patient now with worsening anasarca, increasing pleural effusions and pulmonary edema, unable to pull enough volumes off with PD, may need to transition to HD inpatient Fistula over right arm with audible bruit, appears to be patent # B/L pleural effusions and pulmonary edema 2/2 volume overload - continue Bipap prn # cannot exclude sepsis Blood cx negative thus far Open sounds over sacrum vs peritonitis may be sources prior colonizers include eneterobacter (imi- I, alfredo-S), enterococcus fecalis (amp-s) and ESBL E.coli (not CRE). peritoneal gram stain with few WBCs, no organisms. cell count <50 imipenem-cilastin renally dosed for empiric coverage for now resume vancomycin given persistent leukocytosis CT CAP without any gross focal collections C diff PCR from stool in case of diarrhea MAP goal >65 Increase midodrine 10 mg TID # malnutrition -started on albumin TID -start TPN Code status was discussed with her and her POA. Patient undersatnds that if respiratory status declines, she may need intubation and mechanical ventilation, however does not wish for it to be a prolonged life support. POA agrees. DVT ppx : none pharmacologic due to GI bleed, SCDs for now chronically ill, currently critical , monitor in ICU Dispo: Ideally should be in NH upon discharge, however she adamantly refuses this option. Insists on taking care of herself in spite of extensive counselling against this. Attestations Medical Necessity Statement*: critically ill as above, remains on pressors Coding Level of Care Code Acute Milking System Installer for [facility] Fwd Diagnoses Severe anemia D64.9 Acute hypokalemia E87.6 Hypothyroidism E03.9 Pressure ulcer, stage III L89.93 Peritoneal dialysis catheter in place Z99.2 Hypomagnesemia E83.42 Hypokalemia E87.6 Hypotension I95.9 Hypotension type: unspecified hypotension type Sepsis A41.9; R65.21; N17.9 Acute renal failure type: unspecified Sepsis acute organ dysfunction status: with acute organ dysfunction Sepsis type: sepsis due to unspecified organism Severe sepsis acute organ dysfunction type: acute renal failure Severe sepsis shock status: with septic shock Electrolyte abnormality E87.8 Renal failure treated with peritoneal dialysis N19; Z99.2 Malnourished E46 DVT (deep venous thrombosis) I82.409
--- NOTE | 2020-02-12 20:36 | PC.NURSE ---
Pt repositioned to begin draining of PD. Pt arouses to verbal stimuli. Pt is lethargic, answering questions intermittently and falls back to sleep instantly. VVS on levophed gtt @ 4.5 and bipap @ 30 % fio2. Pt becomes sob and labored breathing when bipap removed. Dwelling exacerbates pt shortness of breath. Pt arms and abd are swollen, weepy pitting edema - numerous bruises, skin tears, abrasions in all stages of healing. Pt ronn area is swollen, red and excoriated in the skin folds. Pt pressure ulcer on sacrum is covered with a duoderm and unvisualized at this time. Pt refusing to eat or drink, swabs provided for oral care which pt is refusing. Dressing to PD tube is C/D/I at this time. Right IJ dressing is C/D/I at this time. Update given to sister Larissa over the phone.
[2020-02-12] MEDS: vancomycin 750 MG in sodium chloride 0.9% 250 ML 250 MG IV (20:43)
[2020-02-13] VITALS (75 sets, daily range): BP systolic 76–137; BP diastolic 43–84; PULSE 60–98; RESP 9–25; TEMP 36.1–36.9; O2SAT 91–100
[2020-02-13] MEDS: morphine 4 mg/mL SDV 1 mL 2 MG IVP ×2 (00:30→04:16)
[2020-02-13 04:51] LABS: BIPAP 16/8
[2020-02-13 05:05] LABS: Basophils % 0.1 %; Eosinophils # 0.1 10^3/uL (0.0-0.8); Eosinophils % 0.3 %; Lymphocytes # 1.3 10^3/uL (0.8-4.8); Lymphocytes % 6.7 %; Mean Corpuscular HGB Conc 34.9 g/dL (30.0-36.0); Mean Corpuscular Hemoglobin 30.4 pg (28.0-34.0); Mean Corpuscular Volume 86.9 fL (81-99); Mean Platelet Volume 12.9 fL (7.4-10.4); Monocytes # 0.6 10^3/uL (0.2-0.9); Neutrophils # 17.7 10^3/uL (1.8-7.7); Neutrophils % 89.2 %; Nucleated Red Blood Cells # 0.1 /100WBC; Nucleated Red Blood Cells % 0.3 %; Platelet Count 91 10^3/cmm (130-400); Red Blood Count 2.14 10^6/uL (4.1-5.3); Red Cell Distribution Width 21.6 % (12.1-15.1); White Blood Count 19.9 10^3/uL (4.0-10.0)
[2020-02-13 05:14] LABS: Hematocrit 18.6 % (37.0-47.0); Hemoglobin 6.5 g/dL (11.5-15.3)
[2020-02-13 05:16] LABS: Alanine Aminotransferase < 5 U/L (0-33); Albumin Level 2.6 g/dL (3.5-5.2); Alkaline Phosphatase 106 IU/L (35-105); Anion Gap 15.6 (5-19); Aspartate Amino Transferase 21 U/L (0-32); Blood Urea Nitrogen 20 mg/dL (6-20); Calcium 6.6 mg/dL (8.5-10.5); Carbon Dioxide 24 mmol/L (22-29); Chloride 98 mmol/L (98-107); Globulin 1.6 g/dL (1.3-4.6); Glomerular Filtration Rate 14.1 mL/min (90-130); Glucose 153 mg/dL (65-115); Osmolality Calculated 280 mOsm/kg (285-295); Sodium 135 mmol/L (136-145); Total Bilirubin 0.5 mg/dL (0.15-1.2); Total Protein 4.2 g/dL (6.6-8.7)
[2020-02-13 05:18] LABS: Potassium 2.6 mmol/L (3.5-5.1)
[2020-02-13 05:29] LABS: Magnesium 1.8 mg/dL (1.7-2.3)
[2020-02-13] MEDS: potassium chloride premix 40 MEQ/100 ML PREMIX 25 MEQ IV ×2 (06:03→10:51)
[2020-02-13] MEDS: Dianeal low Ca w/1.5% dex 2,000 mL Bag 2000 ML INTRAPERIT ×2 (06:07→22:01)
--- NOTE | 2020-02-13 07:04 | XR_ITS ---
WS: [id number] CHEST XRAY TECHNIQUE: Portable chest. CLINICAL INFORMATION: sob, chf COMPARISON: February 12, 2020 FINDINGS: Right central venous catheter with tip in the proximal SVC. Heart: Cardiomegaly. Lungs: Right pleural effusion appears improved. Tiny left pleural effusion. Progressed airspace infil trates throughout both lungs worse in the right lower lobe. Small amount of fluid along the right fis sure. Bones: Normal visualized bony structures. XR/XR chest 1V portable [id number] IMPRESSION: 1. Small right pleural effusion appears improved. Trace left pleural fluid. 2. Diffuse bilateral airspace infiltrates worse right lower lobe. Recommend co rrelation for pneumonia. 3. Right central venous catheter with tip in the SVC.
--- NOTE | 2020-02-13 07:19 | P.PN_ITS ---
Subjective Subjective: Interval history: weak, bipap, on pressors. Medications: Reviewed: Yes Medication Review Details: Current Medications Norepinephrine Bitartrate 4 mg (/ Dextrose) 254 mls @ 0 mls/hr IV .Q0M [facility]; Protocol Last Admin: 02/13/20 02:12 Dose: 4.5 mcg/min, 17.1 mls/hr Documented by: Vancomycin HCl 750 mg/ Sodium (Chloride) 250 mls @ 250 mls/hr IV Q48H [facility]; Protocol Last Infusion: 02/13/20 02:12 Dose: Infused Documented by: Potassium Chloride (K-Guy) 40 meq in 100 mls @ 25 mls/hr IV Q4H [facility] Stop: 02/13/20 13:29 Last Admin: 02/13/20 06:03 Dose: 25 mls/hr Documented by: Calcium Gluconate 1 gm/ Sodium (Chloride) 60 mls @ 120 mls/hr IV ONCE ONE Stop: 02/13/20 07:59 Midodrine (Proamatine) 10 mg PO TID [facility] Last Admin: 02/12/20 20:47 Dose: Not Given Documented by: Morphine Sulfate (Morphine) 2 mg IVP Q4H PRN PRN Reason: SEVERE PAIN Last Admin: 02/13/20 04:16 Dose: 2 mg Documented by: Ondansetron HCl (Zofran) 4 mg IVP Q6H PRN PRN Reason: NAUSEA AND VOMITING Last Admin: 02/11/20 12:16 Dose: 4 mg Documented by: Pantoprazole Sodium (Protonix) 40 mg IVP BID [facility] Last Admin: 02/12/20 17:50 Dose: 40 mg Documented by: Peritoneal Dialysis Solution (Dianeal Low Ca W/1.5% Dex) 2,000 ml INTRAPERIT 5XD [facility] Last Admin: 02/13/20 06:07 Dose: 2,000 ml Documented by: Vitals/I&O/Wt Last Vital Signs Temp 97.0 F L 02/12/20 19:30 Pulse 72 02/13/20 06:00 Resp 10 L 02/13/20 06:00 BP 109/68 02/13/20 06:00 Pulse Ox 100 02/13/20 06:00 02/12/20 02/13/20 02/13/20 22:59 06:59 14:59 Intake Total 2297.533 / 2508.240 2550.89 / 5059.130 Output Total 2100 / 2100 2500 / 4600 Balance 197.533 / 408.240 50.89 / 459.130 Physical Exam Narrative: EXAM NARRATIVE: hypotensive on pressors- using bipap - hypoxic heent- nc/at, eomi, neck supple lungs diffuse ronchi heart reg +FIDE abd soft, +BS, + dialysis catheter ext + edema, rue avf w/ poor bruit sacral decub as per RN neuro- lethargic, confused in bed Data : 02/13/20 04:17 02/13/20 04:17 Micro: Microbiology 02/09/20 04:48 Gram Stain - Final Peritoneal Fluid Body Fluid Culture - Final A&P Additional A&P Information 1. ESRD on CAPD, no evidence of peritonitis -hold pd due to hypotension -chech cxr w/o PD fluids in 2. Profound malnutrition- needs iv nutrition -hold albumin 3. Hypokalemia, hypomag- replete iv 4. Anemia, possible GI bleed- please reconsult Dr. Borja. agree w/ 2 u prbc tx 5. Hypocalcemia- vit d and calcium 6. leukocytosis- and septic shock- iv abx as per hospitalist 7. resp acidosis and hypoxemia- even on bipap- unable to remove fluids w/ CAPD- will re-evaluate after prbc tx. 8. Goals of Care- would consider Intubation and pressors. if she is DNI, would consider comfort care Attestations Medical Necessity Statement*: esrd, hypoxemia, hypercapnemia, anemia Time Spent in Patient Care: 16 - 35 minutes Coding Level of Care Code Acute It Infrastructure Consultant for [facility]
[2020-02-13 09:35] LABS: Lactic Sepsis W/Reflex 1.6 mmol/L (0.5-2.2)
--- NOTE | 2020-02-13 09:37 | ANES.PROC ---
Anesthesia Procedures Procedure/Date: 02/13/20 Intubation: Time Out Performed: Yes Consent: requested by attending/covering physician Sedative (amount): versed Paralytic (amount): rocuronium Laryngoscope: fiber optic video scope ET Tube Size: 7.5 ET Tube Uncuffed: Yes Tube Secured Depth (cm): 21 Tube Secured Location: lips Tube Placement Confirmation: visualized tube passing through cords and equal breath sounds bilaterally Patient Tolerated Procedure: well Intubation Complications: none Additional Comments: Asked to intubate this patient concerning respiratory failure due to multifactors, including COVID-19 suspected. Versed 2mg, Propofol 50mg, Rocuronium 30mg, Glidescope easy. 21 cm at lip
[2020-02-13 09:43] LABS: Procalcitonin 4.39 ng/mL (0-0.5); Thyroid Stimulating Hormone 18.63 uIU/mL (0.27-4.20)
[2020-02-13 09:54] LABS: C Reactive Protein 53.6 mg/L (0.0-4.9)
--- NOTE | 2020-02-13 09:55 | XR_ITS ---
WS: [id number] CHEST XRAY TECHNIQUE: Portable chest. CLINICAL INFORMATION: endotracheal placement verification COMPARISON: February 13, 2020 FINDINGS: Right central venous catheter with tip in the proximal SVC. Enteric tube with tip below the diaphragm with tip in the proximal stomach. Endotracheal tube with tip above the naga measuring 2.1 CM. Heart: Mild cardiomegaly. Lungs: Diffuse bilateral airspace infiltrates have improved since earlier today with improved lung vo lumes post intubation. Airspace infiltrates worse in the right lower lobe unchanged. Small right pleu ral effusion. Trace left pleural fluid. Small amount of fluid along the right fissure. Mild thoracic curve convex right. Bones: Normal visualized bony structures. Cholecystectomy clips. XR/XR chest 1V portable [id number] IMPRESSION: 1. Endotracheal tube with tip 2.1 cm above the naga new from earlier today. 2. Improved lung volumes with improved airspace infiltrates. Persistent airspa ce infiltrates worse in the right lower lobe. 3. Enteric tube with tip below the diaphragm. 4. Small right and trace left pleural fluid.
[2020-02-13 09:58] LABS: Fibrinogen 166 mg/dL (184-529)
[2020-02-13] MEDS: propofol 1,000 MG/100 ML INJ 3.2 MG IV ×2 (10:03→17:39)
[2020-02-13 10:37] LABS: Influenza A by IFA Negative (Negative); Influenza B by IFA Negative (Negative)
[2020-02-13] MEDS: levothyroxine 100 mcg SDV 75 MCG IVP (10:46)
[2020-02-13] MEDS: midodrine 5 mg TABLET 10 MG PO ×3 (10:50→22:06)
[2020-02-13] MEDS: pantoprazole 40 mg SDV IVP ×2 (10:50→17:12)
--- NOTE | 2020-02-13 11:31 | PM.PN ---
Subjective Subjective: Interval history: Patient hemoglobin has dropped to 6.5, continues to be on pressors and patient is waiting to be getting tested for COVID 19 as well as getting intubated due to her poor respiratory status Vitals/I&O/Wt Last Vital Signs Temp 97.5 F L 02/13/20 11:23 Pulse 68 02/13/20 11:02 Resp 16 02/13/20 11:23 BP 108/64 02/13/20 11:23 Pulse Ox 100 02/13/20 11:23 02/12/20 02/13/20 02/13/20 22:59 06:59 14:59 Intake Total 2297.533 / 5059.130 2550.89 / 5059.130 100 / 100 Output Total 2100 / 4600 2500 / 4600 Balance 197.533 / 459.130 50.89 / 459.130 100 / 100 Physical Exam Narrative: EXAM NARRATIVE: Abdomen: Soft Data : 02/13/20 04:17 02/13/20 04:17 Micro: Microbiology 02/09/20 04:48 Gram Stain - Final Peritoneal Fluid Body Fluid Culture - Final A&P Assessment and plan (1) Severe anemia: 54 old female with multiple comorbidities who is about to get intubated and tested for COVID19. Her hemoglobin is dropped to 6.5 and she is due to get 2 units of blood. We will hold off on EGD until we get the call with results back which will have to be performed if needed by my partner Dr. Falcon who will be taking over from me this week Status: Acute Attestations Medical Necessity Statement*: Anemia Coding Level of Care Code Acute Tester [employer]ed [employer] for [facility] Fwd Diagnoses Severe anemia D64.9
[2020-02-13] MEDS: propofol 10 mg/mL SDV 20 mL 200 MG (11:46)
[2020-02-13] MEDS: rocuronium 10 mg/mL INJ 5mL 50 MG (11:48)
[2020-02-13] MEDS: midazolam 1 mg/mL INJ 2 mL 2 MG (11:50)
[2020-02-13] MEDS: sodium chloride 0.9% 1,000 ML 25 ML IV (11:50)
[2020-02-13 11:53] LABS: ABG PCO2 56.9 mmHg (35-45); ABG PH Result 7.25 (7.35-7.45); Blood Gas Sample Site Brachial, left; Blood Gas Sample Type Arterial; HCO3 ABG 25.1 mmol/L (22-26); Oxygen Device BIPAP; PO2 ABG 56.3 mmHg (80.0-100.0)
[2020-02-13 11:54] LABS: Arterial Blood Gas Hematocrit 20.1 % (37-47)
[2020-02-13] MEDS: ipratropium-albuterol 3 mL Neb INHALATION ×4 (12:00→23:11)
--- NOTE | 2020-02-13 12:07 | P.PN_ITS ---
Subjective Subjective: Interval history: This morning patient was quite lethargic, was short of breath, had suprasternal retractions, interest costal retractions, I did discussion with the patient about her goals of care. Patient wants to remain a full code, wants all interventions, I advised patient that the best course of action would be intubation, protect her airway, allow for adequate mony tilation, and eventual dialysis to help her fluid overload. Patient agreed, agreed with all interventions. I confirmed that patient understood the risks and benefits, she voiced understanding, she squeeze my fingers agreed for intubation, she squeezed the finger that she understood the risks and benefits. Given patient's respiratory failure, recent history of hospitalizations, recent history of pneumonia, admission concerns for lethargy and shortness of breath, persistent leukocytosis without any good source, hypothermic episodes, there was concerns for possible covid 19, patient was moved to isolation room, Covid 19 testing was sent Patient was intubated by anesthesia team, she was placed on the ventilator, placed on propofol, placed on fentanyl, currently doing well on ventilation I spoke to nephrology this morning, plan on peritoneal dialysis with 3 hours indwelling Patient's hemoglobin this morning 6.5, she is receiving 2 units of PRBCs, there were plans on possible scoping her today, but with her acute respiratory failure this will likely need to be delayed, her INR is 2.2, Eliquis was discontinued on admission, she is on Protonix 40 twice daily Since admission patient has been on Levophed, for pressure support, due to hypotensive episodes, currently map is greater than 65 Vitals/I&O/Wt Last Vital Signs Temp 97.5 F L 02/13/20 11:23 Pulse 68 02/13/20 11:02 Resp 16 02/13/20 11:23 BP 108/64 02/13/20 11:23 Pulse Ox 100 02/13/20 11:23 02/12/20 02/13/20 02/13/20 22:59 06:59 14:59 Intake Total 2297.533 / 2508.240 2550.89 / 5059.130 100 / 100 Output Total 2100 / 2100 2500 / 4600 Balance 197.533 / 408.240 50.89 / 459.130 100 / 100 Physical Exam Const: COMMON NORMALS: alert GENERAL APPEARANCE: cooperative, lethargic and ill appearing NUTRITIONAL APPEARANCE: cachectic ORIENTATION/CONSCIOUSNESS: Yes lethargic HENMT: COMMON NORMALS: normocephalic HEAD & SCALP: normocephalic Neck/C-Spine: COMMON NORMALS: no JVD Resp: COMMON NORMALS: clear to auscultation bilaterally EFFORT & INSPECTION: Yes tachypneic, Yes retractions and Yes uses accessory muscles AUSCULTATION: clear to auscultation bilaterally Cardio: COMMON NORMALS: no JVD, regular rate, regular rhythm, S1 normal heart sound and S2 normal heart sound RATE: regular rate RHYTHM: regular rhythm HEART SOUNDS: S1 normal and S2 normal GI: COMMON NORMALS: normal to inspection, nondistended, normoactive bowel sounds, soft to palpation, non-tender, no hepatosplenomegaly, no masses and no bruits PALPATION: Yes soft and Yes no hepatosplenomegaly Extremity: COMMON NORMALS: normal capillary refill, no clubbing, cyanosis or edema, no calf tenderness and no pedal edema Neuro: SENSORIUM/ORIENTATION: Yes alert and Yes lethargic Psych: COMMON NORMALS: cooperative Data : 02/13/20 04:17 02/13/20 04:17 Micro: Microbiology 02/09/20 04:48 Gram Stain - Final Peritoneal Fluid Body Fluid Culture - Final A&P Assessment and plan (1) Acute respiratory failure with hypoxia and hypercarbia: -Secondary to pulmonary edema and or pneumonia and or viral infection and/or covid19 -chest x-ray showing bilateral pleural effusions, bilateral airspace disease with vascular congestion concerning for fluid overload and or pneumonia and or viral infection -BNP 27,000 -Low white blood cell count 19.9, neutrophil count 17.7, pro calcitonin 4.39, CRP 53.7 -Cultures so far blood cultures, respiratory cultures have been unremarkable -Peritoneal dialysis has been lackluster due to concerns for hypotensive episodes -Has peritoneal dialysis catheter in place, has a left AV fistula that has not been accessed in place, has a right central line in place Plan: -covid19 contact precautions, testing has been performed -Continue ventilation, minimize PEEP, minimize FiO2,, minimize -Maintain map greater than 65, Levophed drip as required -Peritoneal dialysis for fluid overload for now, but hemodialysis a good near future option -We will consider ultrasound to evaluate for pleural effusions, possible thoracocentesis -Receiving TPN, monitor blood sugars -GI prophylaxis Protonix -DVT prophylaxis SCDs, anticoagulation is contraindicated due to GI bleed -Patient status is critical, prognosis is guarded Status: Acute (2) GI bleed: -FOBT positive -Eliquis has been discontinued -Has received 2 units PRBC so far, on Protonix 40 twice daily, -Hemoglobin trending down to 6.5 today -We will receive 2 units PRBC -INR is 2.2, received 1 unit FFP - Trend hemoglobin, will get iron studies -Surgery is on consult, scoping is on hold once respiratory status is improved Status: Acute (3) Acute hypokalemia: Potassium 2.6 this morning, received 80 units of kcl (4) Hypothyroidism: -Takes 150 mcg of levothyroxine at home, complaints in question -TSH is 18.63 -Start 75 mcg of IV levothyroxine Status: Acute (5) Pressure ulcer, stage III: -Cultures have grown ESBL, Enterococcus faecalis -Continue repositioning, broad-spectrum antibiotics as above Status: Acute (6) Peritoneal dialysis catheter in place: Status: Acute (7) Hypotension: -Hypotension secondary to fluid shifts related to peritoneal dialysis, pos sible sepsis -Blood cultures have been unremarkable so far, has remained afebrile, lactic acid 1.6 -Possible source of infection could be sacral infection/ulcers -Continue Levophed, continue broad-spectrum antibiotics -We will consider CT imaging of sacrum and coccyx if patient clinically does not improve Status: Acute Qualifiers: Hypotension type: unspecified hypotension type Qualified Code(s): I95.9 - Hypotension, unspecified (8) Renal failure treated with peritoneal dialysis: Status: Acute (9) Malnourished: Status: Acute (10) DVT (deep venous thrombosis): Status: Acute (11) Peritoneal dialysis catheter in place: -Patient has had issues of compliance as outpatient, issues with hypokalemia, hypomagnesemia, as outpatient -I am not certain if patient is able to perform PD as instructed- her caregivers are an elderly neighbor and 15 year old daughter, the arrangement appears to be less than ideal. This was discussed with home inspection supervisor. She informed me today that owing to the above, they have been considering transitoning her to HD three times a week. she has appt on 01/20 for the same. We will likely move this closer to discharge. I have been informed patient has a patent fistula to enable HD. Status: Acute (12) Hypocalcemia: -Calcium level 6.6 -Likely secondary to renal failure -Continue to monitor Status: Acute (13) Hypophosphatemia: -Phosphorus level 2.0, continue monitor phosphorus levels Status: Acute Additional A&P Information Increase midodrine 10 mg TID # malnutrition -started on albumin TID -start TPN Code status patient wants to be intubated, wants all medical interventions DVT ppx : none pharmacologic due to GI bleed, SCDs for now chronically ill, currently critical , monitor in ICU Dispo: Ideally should be in NH upon discharge, however she adamantly refuses this option. Insists on taking care of herself in spite of extensive counselling against this. 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
[2020-02-13 13:50] LABS: ABG PCO2 38.6 mmHg (35-45); Alveolar-Arterial Oxygen Gradi 126.3 mmHg (5-10); Base Excess ABG -1.1 mmol/L (-2.0-2.0); Blood Gas Allen Test Pos; Blood Gas Sample Site Brachial, left; Blood Gas Sample Type Arterial; Blood Gas Tidal Volume 0.4; Carboxyhemoglobin 0.9 %THgb (0.4-20.1); HCO3 ABG 23.6 mmol/L (22-26); HGB O2 Sat 97.6 % (95-100); Oxygen Device VENT; Oxygen Saturation ABG 99.4; Potassium Level - ABG 3.3 mmol/L (3.5-5.0); Total Hemoglobin 7.8 g/dL (12-16)
[2020-02-13] MEDS: Dianeal low Ca w/2.5% dex 2,000 mL Bag 2000 ML INTRAPERIT (14:27)
[2020-02-13 20:32] LABS: Hematocrit 27.6 % (37.0-47.0); Hemoglobin 9.6 g/dL (11.5-15.3)
[2020-02-14] VITALS (54 sets, daily range): BP systolic 78–130; BP diastolic 47–98; PULSE 51–88; RESP 16–18; TEMP 36.9; O2SAT 100
[2020-02-14 00:16] LABS: Alanine Aminotransferase < 5 U/L (0-33); Albumin Level 2.6 g/dL (3.5-5.2); Alkaline Phosphatase 101 IU/L (35-105); Aspartate Amino Transferase 23 U/L (0-32); Blood Urea Nitrogen 21 mg/dL (6-20); Carbon Dioxide 21 mmol/L (22-29); Chloride 97 mmol/L (98-107); Globulin 1.5 g/dL (1.3-4.6); Glomerular Filtration Rate 15.7 mL/min (90-130); Glucose 151 mg/dL (65-115); Osmolality Calculated 274 mOsm/kg (285-295); Sodium 132 mmol/L (136-145); Total Bilirubin 1.8 mg/dL (0.15-1.2); Total Protein 4.1 g/dL (6.6-8.7)
[2020-02-14 01:22] LABS: Hematocrit 26.8 % (37.0-47.0); Hemoglobin 9.4 g/dL (11.5-15.3)
[2020-02-14] MEDS: Dianeal low Ca w/2.5% dex 2,000 mL Bag 2000 ML INTRAPERIT ×3 (01:51→20:24)
[2020-02-14] MEDS: ipratropium-albuterol 3 mL Neb INHALATION ×2 (03:35→08:24)
[2020-02-14 05:17] LABS: Basophils % 0.1 %; Eosinophils # 0.1 10^3/uL (0.0-0.8); Eosinophils % 0.5 %; Hematocrit 26.7 % (37.0-47.0); Hemoglobin 9.4 g/dL (11.5-15.3); Lymphocytes # 2.3 10^3/uL (0.8-4.8); Lymphocytes % 13.9 %; Mean Corpuscular HGB Conc 35.2 g/dL (30.0-36.0); Mean Corpuscular Hemoglobin 28.7 pg (28.0-34.0); Mean Corpuscular Volume 81.7 fL (81-99); Mean Platelet Volume 13.9 fL (7.4-10.4); Monocytes # 0.5 10^3/uL (0.2-0.9); Neutrophils # 13.8 10^3/uL (1.8-7.7); Neutrophils % 81.8 %; Nucleated Red Blood Cells % 0 %; Platelet Count 53 10^3/cmm (130-400); Red Blood Count 3.27 10^6/uL (4.1-5.3); White Blood Count 16.9 10^3/uL (4.0-10.0)
[2020-02-14] MEDS: Dianeal low Ca w/1.5% dex 2,000 mL Bag 2000 ML INTRAPERIT ×2 (05:22→15:02)
[2020-02-14 05:23] LABS: ABG PCO2 38.1 mmHg (35-45); ABG PH Result 7.37 (7.35-7.45); Arterial Blood Gas Hematocrit 30.3 % (37-47); Base Excess ABG -2.9 mmol/L (-2.0-2.0); Blood Gas Sample Site Brachial, left; Blood Gas Sample Type Arterial; Blood Gas Tidal Volume 0.4; HCO3 ABG 22.1 mmol/L (22-26); Oxygen Device VENT; PO2 ABG 71.6 mmHg (80.0-100.0)
[2020-02-14 05:26] LABS: Alanine Aminotransferase < 5 U/L (0-33); Albumin Level 2.4 g/dL (3.5-5.2); Alkaline Phosphatase 104 IU/L (35-105); Anion Gap 18.1 (5-19); Aspartate Amino Transferase 17 U/L (0-32); Blood Urea Nitrogen 21 mg/dL (6-20); Calcium 6.9 mg/dL (8.5-10.5); Carbon Dioxide 20 mmol/L (22-29); Chloride 99 mmol/L (98-107); Globulin 1.4 g/dL (1.3-4.6); Glomerular Filtration Rate 15.2 mL/min (90-130); Glucose 219 mg/dL (65-115); Osmolality Calculated 281 mOsm/kg (285-295); Potassium 3.1 mmol/L (3.5-5.1); Sodium 134 mmol/L (136-145); Total Protein 3.8 g/dL (6.6-8.7)
[2020-02-14 05:27] LABS: Magnesium 1.8 mg/dL (1.7-2.3); Phosphorus 2.2 mg/dL (2.5-4.5)
--- NOTE | 2020-02-14 07:00 | XR_ITS ---
WS: [id number] CHEST XRAY TECHNIQUE: Portable chest. CLINICAL INFORMATION: sob COMPARISON: February 13, 2020 FINDINGS: Endotracheal tube with tip 2.1 cm above the naga. Enteric tube with tip below the diaphragm. Right IJ central venous catheter. Heart: Cardiomegaly with pulmonary vascular congestion. Lungs: Diffuse bilateral airspace infiltrates worse in the right lower lobe appear unchanged since ye . Small right pleural effusion appears unchanged. Increased tiny left pleural effusion. Bibasi lar atelectasis. Bones: Mild thoracic curve convex right. XR/XR chest 1V portable [id number] IMPRESSION: 1. Endotracheal tube with tip 2.1 cm above the naga. Right IJ central venous catheter. 2. Diffuse bilateral airspace infiltrates appear stable since yesterday. 3. Stable small right pleural effusion. Increased tiny left pleural effusion. 4. Pulmonary vascular congestion appears increased.
[2020-02-14 07:10] LABS: Hematocrit 26.9 % (37.0-47.0); Hemoglobin 9.4 g/dL (11.5-15.3)
--- NOTE | 2020-02-14 07:43 | PM.PN ---
Subjective Subjective: Interval history: pt sedated and intubated- seen w/ VICE PRESIDENT [employer]. Medications: Reviewed: Yes Medication Review Details: Current Medications Albuterol/Ipratropium (Duoneb) 3 ml INHALATION Q4H.RESPIRATORY ZAIN Last Admin: 02/14/20 03:35 Dose: 3 ml Documented by: Norepinephrine Bitartrate 4 mg (/ Dextrose) 254 mls @ 0 mls/hr IV .Q0M ZAIN; Protocol Last Titration: 02/14/20 02:39 Dose: Infused Documented by: Vancomycin HCl 750 mg/ Sodium (Chloride) 250 mls @ 250 mls/hr IV Q48H ZAIN; Protocol Last Infusion: 02/13/20 02:12 Dose: Infused Documented by: Imipenem/Cilastatin Sodium 250 (mg/ Sodium Chloride) 100 mls @ 200 mls/hr IV Q12H ZAIN; Protocol Last Infusion: 02/13/20 22:58 Dose: Infused Documented by: Fentanyl 1,000 mcg/ Sodium (Chloride) 100 mls @ 0 mls/hr IV .Q0M PRN; Protocol PRN Reason: SEDATION Propofol (Diprivan) 1,000 mg in 100 mls @ 0 mls/hr IV .Q0M PRN; Protocol PRN Reason: SEDATION Last Titration: 02/13/20 22:58 Dose: 30 mcg/kg/min, 9.5 mls/hr Documented by: Famotidine 40 mg/ Amino Acids/ (Electrolytes) 1,004 mls @ 42 mls/hr IV .[id number] ZAIN; Protocol Famotidine 40 mg/ Amino Acids/ (Electrolytes) 1,004 mls @ 14 mls/hr IV .Q24H ZAIN; Protocol Last Admin: 02/13/20 22:14 Dose: 14 mls/hr, 14 mls/hr Documented by: Potassium Phosphate 15 mmol/ (Sodium Chloride) 255 mls @ 62.5 mls/hr IV ONCE ONE Stop: 02/14/20 04:33 Last Admin: 02/14/20 01:49 Dose: 62.5 mls/hr Documented by: Levothyroxine Sodium (Synthroid) 75 mcg IVP DAILY ZAIN Last Admin: 02/13/20 10:46 Dose: 75 mcg Documented by: Midodrine (Proamatine) 10 mg PO TID ZAIN Last Admin: 02/13/20 22:06 Dose: 10 mg Documented by: Ondansetron HCl (Zofran) 4 mg IVP Q6H PRN PRN Reason: NAUSEA AND VOMITING Last Admin: 02/11/20 12:16 Dose: 4 mg Documented by: Pantoprazole Sodium (Protonix) 40 mg IVP BID [facility] Last Admin: 02/13/20 17:12 Dose: 40 mg Documented by: Peritoneal Dialysis Solution (Dianeal Low Ca W/1.5% Dex) 2,000 ml INTRAPERIT 5XD [facility] Last Admin: 02/13/20 06:07 Dose: 2,000 ml Documented by: Peritoneal Dialysis Solution (Dianeal Low Ca W/2.5% Dex) 2,000 ml INTRAPERIT Q10H [facility] Last Admin: 02/14/20 01:51 Dose: 2,000 ml Documented by: Peritoneal Dialysis Solution (Dianeal Low Ca W/1.5% Dex) 2,000 ml INTRAPERIT Q10H [facility] Last Admin: 02/14/20 05:22 Dose: 2,000 ml Documented by: Vitals/I&O/Wt Last Vital Signs Temp 98.4 F 02/14/20 00:42 Pulse 74 02/14/20 06:00 Resp 16 02/14/20 06:22 BP 110/68 02/14/20 06:00 Pulse Ox 100 02/14/20 06:00 02/13/20 02/14/20 02/14/20 22:59 06:59 14:59 Intake Total 3248.333 / 3698.333 160 / 3858.333 1999 / 1999 Output Total 2500 / 2500 2100 / 4600 2100 / 2100 Balance 748.333 / 1198.333 -1940 / -741.667 -100 / -100 Physical Exam Narrative: EXAM NARRATIVE: intubated, off pressors, fio2 requirements down examined by VICE PRES[employer] as pt is being ruled out for COVID-19 heent- nc/at, eomi, neck supple lungs diffuse ronchi heart reg +FIDE abd soft, +BS, + dialysis catheter ext + edema, rue avf w/ poor bruit, but palpable and heard sacral decub as per RN neuro- lethargic, confused in bed Data : 02/14/20 07:00 02/14/20 04:30 Micro: Microbiology 02/09/20 03:07 Blood Culture - Final Blood NO GROWTH AFTER 5 DAYS 02/09/20 03:06 Blood Culture - Final Blood NO GROWTH AFTER 5 DAYS 02/13/20 10:55 Gram Stain - Final Sputum - Endotracheal Tube Aspirate A&P Additional A&P Information 1. ESRD on CAPD, no evidence of peritonitis -cont CAPD alt 1.24% and 2.5% pd fluid 2 l fills- attempt to diurese her- we are starting to get fluid off of her 2. Profound malnutrition- needs iv nutrition - hypophosphatemia, Hypokalemia, hypomag- replete iv 3. Anemia, possible GI bleed -more stable after 2 u prbc tx 4. VDRF- per critical care and hospitalist 5. Hypocalcemia- vit d and calcium 6. leukocytosis- and septic shock- iv abx as per hospitalist- wbc improving, bp improving 7. 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
[2020-02-14 07:55] LABS: INR 1.62 (0.8-1.2)
[2020-02-14 08:03] LABS: Coronavirus Lab Test PTC NOT DETECTED
[2020-02-14 08:56] LABS: Glucose Point of Care 186 mg/dL (70-110)
[2020-02-14] MEDS: midodrine 5 mg TABLET 10 MG PO ×3 (08:59→20:31)
[2020-02-14] MEDS: pantoprazole 40 mg SDV IVP ×2 (08:59→18:49)
[2020-02-14] MEDS: levothyroxine 100 mcg SDV 75 MCG IVP (08:59)
[2020-02-14] MEDS: propofol 1,000 MG/100 ML INJ 9.5 MG IV ×2 (09:22→15:02)
--- NOTE | 2020-02-14 10:20 | PM.PN ---
Subjective Subjective: Interval history: This morning patient was examined, is on the ventilator, PEEP of 8, FiO2 of 35%, tidal volume of 400, doing well on ventilation, had 700 output from peritoneal dialysis, lungs have good aeration bilaterally, chest x-ray shows pulmonary vascular congestion, bilateral pleural effusions, roughly the same compared to yesterday, hemoglobin this morning is 9.4, potassium is 3.1, she is more normotensive for the last 24 hours,No tachycardia, no hypercapnia, afebrile. Her ABG this morning shows a pH of 7.37, PO2 of 71.6 car, PCO2 of 30.1. Patient is off pressors. Her covid 19 was negative overall I feel the patient is improving, I do feel that she would improve a bit more rapidly with hemodialysis, will reach out to nephrology service. Vitals/I&O/Wt Last Vital Signs Temp 98.4 F 02/14/20 00:42 Pulse 74 02/14/20 10:00 Resp 16 02/14/20 09:18 BP 106/74 02/14/20 10:00 Pulse Ox 100 02/14/20 10:00 02/13/20 02/14/20 02/14/20 22:59 06:59 14:59 Intake Total 3248.333 / 3698.333 160 / 3858.333 2082.987 / 2082.987 Output Total 2500 / 2500 2100 / 4600 2100 / 2100 Balance 748.333 / 1198.333 -1940 / -741.667 -17.013 / -17.013 Physical Exam Const: COMMON NORMALS: no apparent distress and alert GENERAL APPEARANCE: cooperative, lethargic and ill appearing NUTRITIONAL APPEARANCE: cachectic ORIENTATION/CONSCIOUSNESS: Yes lethargic OTHER: Intubated and sedated HENMT: COMMON NORMALS: normocephalic HEAD & SCALP: normocephalic Neck/C-Spine: COMMON NORMALS: no JVD Resp: COMMON NORMALS: normal respiratory effort, no retractions, no use of accessory muscles and clear to auscultation bilaterally EFFORT & INSPECTION: Yes tachypneic, Yes retractions and Yes uses accessory muscles AUSCULTATION: clear to auscultation bilaterally Cardio: COMMON NORMALS: no JVD, regular rate, regular rhythm, S1 normal heart sound and S2 normal heart sound RATE: regular rate RHYTHM: regular rhythm HEART SOUNDS: S1 normal and S2 normal GI: COMMON NORMALS: normal to inspection, nondistended, normoactive bowel sounds, soft to palpation, non-tender, no hepatosplenomegaly, no masses and no bruits PALPATION: Yes soft and Yes no hepatosplenomegaly OTHER: Has some generalized anasarca Extremity: COMMON NORMALS: normal capillary refill, no clubbing, cyanosis or edema and no calf tenderness NARRATIVE EXTREMITY EXAM: Nonpitting edema of lower extremities Neuro: SENSORIUM/ORIENTATION: Yes alert and Yes lethargic OTHER: Intubated, sedated, Psych: COMMON NORMALS: cooperative Data : 02/14/20 07:00 02/14/20 04:30 Micro: Microbiology 02/09/20 03:07 Blood Culture - Final Blood NO GROWTH AFTER 5 DAYS 02/09/20 03:06 Blood Culture - Final Blood NO GROWTH AFTER 5 DAYS 02/13/20 10:55 Gram Stain - Final Sputum - Endotracheal Tube Aspirate A&P Assessment and plan (1) Acute respiratory failure with hypoxia and hypercarbia: -Secondary to pulmonary edema and or pneumonia and or viral infection and/or covid19 -chest x-ray showing bilateral pleural effusions, bilateral airspace disease with vascular congestion concerning for fluid overload and or pneumonia and or viral infection -BNP 27,000 -white blood cell count 16.9, neutrophil count 13.8, pro calcitonin 4.39, CRP 53.7 -Cultures so far blood cultures, respiratory cultures have been unremarkable -Peritoneal dialysis 700 cc output in the last 24 hours, remains fairly normotensive, off Levophed -Has peritoneal dialysis catheter in place, has a right arm AV fistula that has not been accessed in place, has a right central line in place Plan -Continue ventilation, minimize PEEP, minimize FiO2,, minimize -Maintain map greater than 65, Levophed drip as required -Peritoneal dialysis for fluid overload for now, but hemodialysis a good near future option -We will consider ultrasound to evaluate for pleural effusions -Receiving TPN, low-dose sliding scale -GI prophylaxis Protonix -DVT prophylaxis SCDs, anticoagulation is contraindicated due to GI bleed -Patient status is critical, prognosis is guarded Status: Acute (2) GI bleed: -FOBT positive -Eliquis has been discontinued -Has received 4 units PRBC so far, on Protonix 40 twice daily, -Hemoglobin now 9.4 -INR is 1.62, received 1 unit FFP - Trend hemoglobin -Surgery is on consult, scoping is on hold once respiratory status is improved Status: Acute (3) Acute hypokalemia: Potassium 3.1 this morning, received potassium phosphate (4) Hypothyroidism: -Takes 150 mcg of levothyroxine at home, complaints in question -TSH is 18.63 -Start 75 mcg of IV levothyroxine Status: Acute (5) Pressure ulcer, stage III: -Cultures have grown ESBL, Enterococcus faecalis -Continue repositioning, broad-spectrum antibiotics as above Status: Acute (6) Peritoneal dialysis catheter in place: Status: Acute (7) Hypotension: -Hypotension secondary to fluid shifts related to peritoneal dialysis, possible sepsis -Currently minimal hypotensive episodes -Blood cultures have been unremarkable so far, has remained afebrile, lactic acid are minimal -Possible source of infection could be sacral infection/ulcers -Continue Levophed as required, continue broad-spectrum antibiotics -We will consider CT imaging of sacrum and coccyx if patient clinically does not improve Status: Acute Qualifiers: Hypotension type: unspecified hypotension type Qualified Code(s): I95.9 - Hypotension, unspecified (8) Renal failure treated with peritoneal dialysis: Status: Acute (9) Malnourished: Status: Acute (10) DVT (deep venous thrombosis): Eliquis is on hold, SCDs in place Status: Acute (11) Hypocalcemia: -Calcium level 6.9 -Likely secondary to renal failure -Continue to monitor Status: Acute (12) Hypophosphatemia: -Phosphorus level 2.2, receiving replacement, continue monitor phosphorus levels Status: Acute (13) Thrombocytopenia: -Platelet count down to 53,000 -All anticoagulation and heparin on hold -We will order peripheral smear Status: Acute Additional A&P Information Increase midodrine 10 mg TID # malnutrition -started on albumin TID -TPN Code status patient wants to be intubated, wants all medical interventions DVT ppx : none pharmacologic due to GI bleed, SCDs for now chronically ill, currently critical , monitor in ICU Dispo: Ideally should be in NH upon discharge, however she adamantly refuses this option. Insists on taking care of herself in spite of extensive counselling against this. 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
--- NOTE | 2020-02-14 10:31 | USCV_ITS ---
Leonie Wong Age: 54 Gender: F : 1965 Exam Date: 02/14/2020 10:50 Ordering Phys: Costa Morejon MD Technologist: Kyle Pérez Exam Location: [facility] [place] Indication: SOB BP: 116 / 80 HR: 72 Rhythm: Sinus Technical Quality: Adequate MEASUREMENTS (Male / Female) Normal Values 2D ECHO LV Diastolic Diameter PLAX 4.0 cm 4.2 - 5.9 / 3.9 - 5.3 cm LV Systolic Diameter PLAX 2.5 cm IVS Diastolic Thickness 0.9 cm 0.6 - 1.0 / 0.6 - 0.9 cm IVS Systolic Thickness 1.3 cm LVPW Diastolic Thickness 0.9 cm 0.6 - 1.0 / 0.6 - 0.9 cm LVPW Systolic Thickness 1.3 cm LVOT Diameter 2.1 cm LV Ejection Fraction 2D Teich 70.3 % LV Ejection Fraction MOD 2C 67.2 % LV Ejection Fraction 2C AL 66.0 % LA Diameter 3.5 cm LA Width 3.7 cm LA Height 4.5 cm RA Width 3.6 cm RA Height 4.5 cm M-MODE LV Diastolic Diameter MM 4.8 cm 4.2 - 5.9 / 3.9 - 5.3 cm LV Systolic Diameter MM 3.3 cm LV Ejection Fraction MM Teich 60.9 % IVS Diastolic Thickness MM 1.1 cm 0.6 - 1.0 / 0.6 - 0.9 cm IVS Systolic Thickness MM 1.3 cm LVPW Diastolic Thickness MM 1.0 cm 0.6 - 1.0 / 0.6 - 0.9 cm LVPW Systolic Thickness MM 1.7 cm RV Diastolic Diameter MM 1.5 cm Aortic Annulus Diameter 3.6 cm LA Ao Ratio MM 1.0 MV E Point Septal Separation 1.3 cm DOPPLER AV Peak Velocity 145.0 cm/s LVOT Peak Velocity 116.0 cm/s AV Area Cont Eq vti 2.5 cm squared AV Area Cont Eq pk 2.7 cm squared MV Area PHT 5.0 cm squared Mitral E to A Ratio 1.0 MV E' Velocity 11.0 cm/s Mitral E to MV E' Ratio 9.8 Mitral E to LV E' Lateral Ratio 10.0 Mitral E to LV E' Septal Ratio 9.7 TR Peak Velocity 314.0 cm/s TR Peak Gradient 39.4 mmHg TV Peak E Velocity 117.0 cm/s Right Atrial Pressure 3.0 mmHg Pulmonary Artery Systolic Pressu 42.4 mmHg FINDINGS Left Ventricle Normal left ventricular size and systolic function, EF 69 %. No regional wall motion abnormalities. Right Ventricle Normal right ventricular size and systolic function. Right Atrium The right atrium is normal in size. Left Atrium The left atrium is normal in size. Mitral Valve Thickened mitral valve. Moderate mitral annular calcification. Aortic Valve Thickened aortic valve. Tricuspid Valve Mild tricuspid valve regurgitation. Estimated pulmonary artery peak systolic pressure of 42 mmHg Pulmonic Valve No gross abnormality noted Pericardium Mild to moderate echolucent area around the apex, suggestive of loculated effusion Aorta Normal aortic annulus size. CONCLUSIONS Normal left ventricular size and systolic function, EF 69 %. No regional wall motion abnormalities. Possible small to moderate loculated pericardial effusion around the anteroapical region of the heart. Thickened aortic and mitral valves Moderate mitral annular calcification. Mild tricuspid valve regurgitation. Mild pulmonary hypertension with an estimated pulmonary artery peak systolic pressure of 42 mmHg There are no intracardiac masses. There are no prior echocardiogram studies to compare. Dr Franco Buchanan MD FACC (Electronically Signed) Final Date: 14 February 2020 17:06 S
[2020-02-14 11:36] LABS: Glucose Point of Care 191 mg/dL (70-110)
[2020-02-14 13:50] LABS: Hematocrit 29.5 % (37.0-47.0); Hemoglobin 10.4 g/dL (11.5-15.3)
[2020-02-14 13:56] LABS: Alanine Aminotransferase < 5 U/L (0-33); Albumin Level 2.3 g/dL (3.5-5.2); Alkaline Phosphatase 106 IU/L (35-105); Anion Gap 16.5 (5-19); Aspartate Amino Transferase 15 U/L (0-32); Blood Urea Nitrogen 20 mg/dL (6-20); Calcium 6.7 mg/dL (8.5-10.5); Carbon Dioxide 22 mmol/L (22-29); Chloride 96 mmol/L (98-107); Globulin 1.6 g/dL (1.3-4.6); Glomerular Filtration Rate 16.3 mL/min (90-130); Glucose 198 mg/dL (65-115); Magnesium 1.7 mg/dL (1.7-2.3); Osmolality Calculated 274 mOsm/kg (285-295); Potassium 3.5 mmol/L (3.5-5.1); Sodium 131 mmol/L (136-145); Total Bilirubin 0.7 mg/dL (0.15-1.2); Total Protein 3.9 g/dL (6.6-8.7)
[2020-02-14 16:53] LABS: LAB Peripheral Smear Sent for Review
[2020-02-14] MEDS: vancomycin 750 MG in sodium chloride 0.9% 250 ML 250 MG IV (20:24)
[2020-02-15] VITALS (28 sets, daily range): BP systolic 83–121; BP diastolic 44–85; PULSE 45–74; RESP 13–22; TEMP 35.2–36.9; O2SAT 99–100
[2020-02-15] MEDS: propofol 1,000 MG/100 ML INJ 9.5 MG IV (00:12)
[2020-02-15] MEDS: Dianeal low Ca w/1.5% dex 2,000 mL Bag 2000 ML INTRAPERIT ×2 (01:42→11:32)
[2020-02-15 04:32] LABS: Basophils % 0.1 %; Eosinophils # 0.3 10^3/uL (0.0-0.8); Hematocrit 30.8 % (37.0-47.0); Hemoglobin 10.9 g/dL (11.5-15.3); Lymphocytes # 1.4 10^3/uL (0.8-4.8); Lymphocytes % 9.1 %; Mean Corpuscular HGB Conc 35.4 g/dL (30.0-36.0); Mean Corpuscular Hemoglobin 28.3 pg (28.0-34.0); Monocytes # 0.4 10^3/uL (0.2-0.9); Monocytes % 2.7 %; Neutrophils # 12.8 10^3/uL (1.8-7.7); Neutrophils % 85.7 %; Nucleated Red Blood Cells % 0 %; Platelet Count 31 10^3/cmm (130-400); Red Blood Count 3.85 10^6/uL (4.1-5.3)
[2020-02-15 04:40] LABS: INR 1.55 (0.8-1.2)
[2020-02-15 04:52] LABS: ABG PCO2 31.3 mmHg (35-45); ABG PH Result 7.47 (7.35-7.45); Arterial Blood Gas Hematocrit 34.7 % (37-47); Base Excess ABG -0.3 mmol/L (-2.0-2.0); Blood Gas Allen Test Pos; Blood Gas Sample Site Radial, left; Blood Gas Sample Type Arterial; HCO3 ABG 22.8 mmol/L (22-26); Oxygen Device VENT; PO2 ABG 56.7 mmHg (80.0-100.0)
[2020-02-15 05:07] LABS: Alanine Aminotransferase < 5 U/L (0-33); Albumin Level 1.7 g/dL (3.5-5.2); Alkaline Phosphatase 114 IU/L (35-105); Anion Gap 19.7 (5-19); Aspartate Amino Transferase 13 U/L (0-32); Blood Urea Nitrogen 16 mg/dL (6-20); Calcium 6.4 mg/dL (8.5-10.5); Carbon Dioxide 21 mmol/L (22-29); Chloride 96 mmol/L (98-107); Globulin 1.8 g/dL (1.3-4.6); Glomerular Filtration Rate 16.3 mL/min (90-130); Glucose 135 mg/dL (65-115); Magnesium 1.4 mg/dL (1.7-2.3); Osmolality Calculated 276 mOsm/kg (285-295); Phosphorus 2.5 mg/dL (2.5-4.5); Sodium 134 mmol/L (136-145); Total Bilirubin 0.8 mg/dL (0.15-1.2); Total Protein 3.5 g/dL (6.6-8.7)
[2020-02-15 05:10] LABS: Potassium 2.7 mmol/L (3.5-5.1)
[2020-02-15] MEDS: potassium chloride premix 40 MEQ/100 ML PREMIX 25 MEQ IV ×2 (06:44→09:30)
[2020-02-15] MEDS: Dianeal low Ca w/2.5% dex 2,000 mL Bag 2000 ML INTRAPERIT ×3 (06:44→20:08)
--- NOTE | 2020-02-15 07:00 | XR_ITS ---
WS: [id number] CHEST XRAY TECHNIQUE: Portable chest. CLINICAL INFORMATION: sob COMPARISON: February 14, 2020 FINDINGS: Endotracheal tube with tip above the naga measuring 2.8 cm above the naga. Enteric tube with tip in the stomach. Right IJ catheter in place. Heart: Normal cardiac silhouette. Lungs: Chronic emphysematous changes. Improved bilateral airspace infiltrates. Small right greater th an left pleural effusions. Bibasilar atelectasis. Bones: Thoracic curve. Cholecystectomy clips. XR/XR chest 1V portable [id number] IMPRESSION: 1. Endotracheal tube with tip above the naga. 2. Right IJ catheter in place. 3. Enteric tube with tip in stomach. 4. Improved bilateral airspace infiltrates since yesterday. 5. Small right greater than left pleural effusions.
--- NOTE | 2020-02-15 07:13 | PC.NURSE ---
This nurse went into room at 0630 to change out Peritoneal Dialysis bag. Noticed edema to the left side of abdomen. 1900 ml drained from current exchange. Patient repositioned. Oncoming nurse notified.
[2020-02-15 07:19] LABS: Glucose Point of Care 103 mg/dL (70-110)
[2020-02-15] MEDS: magnesium sulfate premix 4 GM/100 ML PREMIX IV (08:03)
[2020-02-15] MEDS: ipratropium-albuterol 3 mL Neb INHALATION ×4 (08:05→23:50)
[2020-02-15 09:05] LABS: Creatine Phosphokinase 39 U/L (26-192)
[2020-02-15] MEDS: propofol 1,000 MG/100 ML INJ 3.2 MG IV (09:17)
[2020-02-15 09:24] LABS: Glucose Point of Care 155 mg/dL (70-110)
[2020-02-15] MEDS: midodrine 5 mg TABLET 10 MG PO ×3 (09:29→20:28)
[2020-02-15] MEDS: pantoprazole 40 mg SDV IVP ×2 (09:29→19:47)
[2020-02-15] MEDS: levothyroxine 100 mcg SDV 75 MCG IVP (10:20)
--- NOTE | 2020-02-15 11:06 | PM.PN ---
Subjective Subjective: Interval history: This morning patient was examined, she is on the ventilator, her FiO2 has been increased to 40%, PEEP of 8, tidal volume of 400, she is receiving peritoneal dialysis, she had 1300 cc output in the last 24 hours, chest x-ray shows improved aeration of bilateral lung ken, remains in febrile, blood pressures are looking better, map is greater than 65, is off norepinephrine drip, her hemoglobin has improved to 10.9 after 4 units of blood so far this admission, her INR has improved to 1.55 her, her potassium is -2.7 she is receiving potassium replacement, her procalcitonin has trended down to 2.8, her platelet count has dropped to 30,000, no active signs of bleeding, is not on any anticoagulation, her anasarca has improved, he is on propofol for sedation Vitals/I&O/Wt Last Vital Signs Temp 98.5 F 02/15/20 06:00 Pulse 64 02/15/20 10:00 Resp 15 02/15/20 10:13 BP 83/58 02/15/20 10:00 Pulse Ox 100 02/15/20 10:00 02/14/20 02/15/20 02/15/20 22:59 06:59 14:59 Intake Total 2353.833 / 6736.820 87.083 / 6823.903 214.625 / 214.625 Output Total 2800 / 7800 Balance -446.167 / -1063.180 87.083 / -976.097 214.625 / 214.625 Physical Exam Const: COMMON NORMALS: no apparent distress and alert GENERAL APPEARANCE: lethargic NUTRITIONAL APPEARANCE: cachectic ORIENTATION/CONSCIOUSNESS: Yes lethargic OTHER: Intubated and sedated HENMT: COMMON NORMALS: normocephalic HEAD & SCALP: normocephalic Neck/C-Spine: COMMON NORMALS: no JVD Resp: COMMON NORMALS: normal respiratory effort, no retractions, no use of accessory muscles and clear to auscultation bilaterally AUSCULTATION: clear to auscultation bilaterally Cardio: COMMON NORMALS: no JVD, regular rate, regular rhythm, S1 normal heart sound and S2 normal heart sound RATE: regular rate RHYTHM: regular rhythm HEART SOUNDS: S1 normal and S2 normal GI: COMMON NORMALS: normal to inspection, nondistended, normoactive bowel sounds, soft to palpation, non-tender, no hepatosplenomegaly, no masses and no bruits PALPATION: Yes soft and Yes no hepatosplenomegaly OTHER: Has some generalized anasarca Extremity: COMMON NORMALS: normal capillary refill, no clubbing, cyanosis or edema and no calf tenderness NARRATIVE EXTREMITY EXAM: Nonpitting edema of lower extremities Neuro: SENSORIUM/ORIENTATION: Yes alert and Yes lethargic OTHER: Intubated, sedated, Psych: COMMON NORMALS: cooperative Data : 02/15/20 04:04 02/15/20 04:04 Micro: Microbiology 02/13/20 10:55 Gram Stain - Final Sputum - Endotracheal Tube Aspirate Sputum Culture - Preliminary A&P Assessment and plan (1) Acute respiratory failure with hypoxia and hypercarbia: -Secondary to pulmonary edema and or pneumonia and or viral infection and/or covid19 -chest x-ray showing bilateral pleural effusions, bilateral airspace disease with vascular congestion concerning for fluid overload and or pneumonia and or viral infection -BNP 27,000 -white blood cell count 15.0, neutrophil count 12.8, pro calcitonin 2.8 -Cultures so far blood cultures, respiratory cultures have been unremarkable -Peritoneal dialysis 1300 cc output in the last 24 hours, chest x-ray shows improved aeration bilateral lung ken, remains fairly normotensive, off Levophed -Has peritoneal dialysis catheter in place, has a right arm AV fistula that has not been accessed in place, has a right central line in place Plan -Plan is to continue mechanical ventilation until respiratory status stabilizes, peritoneal dialysis picks up, and successful extubation is likely -Continue ventilation, minimize PEEP, minimize FiO2,, minimize -Maintain map greater than 65, Levophed drip as required -Peritoneal dialysis for fluid overload for now, but hemodialysis a good near future option -We will consider ultrasound to evaluate for pleural effusions -Receiving TPN, low-dose sliding scale -GI prophylaxis Protonix -DVT prophylaxis SCDs, anticoagulation is contraindicated due to GI bleed -Continue Primaxin, vancomycin has been discontinued due to concerns for thrombocytopenia -Patient status is critical, prognosis is guarded Status: Acute (2) GI bleed: -FOBT positive -Eliquis has been discontinued -Has received 4 units PRBC so far, on Protonix 40 twice daily, -Hemoglobin now 9.4 -INR is 1.55, received 1 unit FFP - Trend hemoglobin -Surgery is on consult, scoping is on hold once respiratory status is improved Status: Acute (3) Acute hypokalemia: Potassium 3.1 this morning, received potassium phosphate (4) Hypothyroidism: -Takes 150 mcg of levothyroxine at home, complaints in question -TSH is 18.63 -Start 75 mcg of IV levothyroxine Status: Acute (5) Pressure ulcer, stage III: -Cultures have grown ESBL, Enterococcus faecalis -Continue repositioning, broad-spectrum antibiotics as above Status: Acute (6) Peritoneal dialysis catheter in place: Status: Acute (7) Hypotension: -Hypotension secondary to fluid shifts related to peritoneal dialysis, possible sepsis -On midodrine -Currently minimal hypotensive episodes -Blood cultures have been unremarkable so far, has remained afebrile, lactic acid are minimal -Possible source of infection could be sacral infection/ulcers -Continue Levophed as required, continue broad-spectrum antibiotics -We will consider CT imaging of sacrum and coccyx if patient clinically does not improve Status: Acute Qualifiers: Hypotension type: unspecified hypotension type Qualified Code(s): I95.9 - Hypotension, unspecified (8) Renal failure treated with peritoneal dialysis: Status: Acute (9) Malnourished: Status: Acute (10) DVT (deep venous thrombosis): Eliquis is on hold, SCDs in place Status: Acute (11) Hypocalcemia: -Calcium level 6.4 -Likely secondary to renal failure -Continue to monitor Status: Acute (12) Hypophosphatemia: -Phosphorus level 2.2, receiving replacement, continue monitor phosphorus levels Status: Acute (13) Thrombocytopenia: -Platelet count down to 31,000 -All anticoagulation and heparin on hold -Peripheral smear shows evidence of iron deficiency, and thrombocytopenia -We will order iron studies, ultrasound of spleen -Possibly thrombocytopenia could be related to vancomycin? Vancomycin has been discontinued -Monitor platelet count, no active signs of bleeding Status: Acute Additional A&P Information # malnutrition -started on albumin TID -TPN Code status patient wants to be intubated, wants all medical interventions DVT ppx : none pharmacologic due to GI bleed, SCDs for now chronically ill, currently critical , monitor in ICU Dispo: Ideally should be in NH upon discharge, however she adamantly refuses this option. Insists on taking care of herself in spite of extensive counselling against this. 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
--- NOTE | 2020-02-15 11:13 | US_ITS ---
WS: [id number] ULTRASOUND ABDOMEN LIMITED CLINICAL INFORMATION: evaluate spleen COMPARISON: None. FINDINGS: Spleen measures 6.2 x 3.9 x 3.4 cm. Surrounding perisplenic ascites. US/US abdomen limited [id number] IMPRESSION: Normal spleen described above
--- NOTE | 2020-02-15 11:13 | US_ITS ---
WS: [id number] INDICATION: Pleural effusion TECHNIQUE: Ultrasound bilateral chest FINDINGS: Ultrasound bilateral chest. Small bilateral pleural effusions. Right pleural effusion measu res approximately 500 cc with echogenic debris. Left pleural effusion measures approximately 632 cc US/US chest [id number] IMPRESSION: Bilateral pleural effusions as described above.
[2020-02-15 11:45] LABS: Glucose Point of Care 156 mg/dL (70-110)
--- NOTE | 2020-02-15 12:27 | PM.PN ---
Subjective Subjective: Interval history: intubated, sedated on ventilator 40% FIO2 CAPD alternating 1.5% and 2.5% Q5 hours, RN reports she is net negative 740 ml/24 hours off IV pressors Medications: Reviewed: Yes Vitals/I&O/Wt Last Vital Signs Temp 98.5 F 02/15/20 06:00 Pulse 63 02/15/20 12:00 Resp 16 02/15/20 12:00 BP 112/58 02/15/20 12:00 Pulse Ox 100 02/15/20 12:00 02/14/20 02/15/20 02/15/20 22:59 06:59 14:59 Intake Total 2353.833 / 6736.820 87.083 / 6823.903 2215.318 / 2215.318 Output Total 2800 / 7800 2400 / 2400 Balance -446.167 / -1063.180 87.083 / -976.097 -184.682 / -184.682 Physical Exam Resp: COMMON NORMALS: normal respiratory effort AUSCULTATION: bronchial breath sounds Cardio: COMMON NORMALS: regular rhythm RHYTHM: regular rhythm OTHER: + edema Extremity: NARRATIVE EXTREMITY EXAM: RUE AVF + thrill per RN Data : 02/15/20 04:04 02/15/20 04:04 Micro: Microbiology 02/13/20 10:55 Gram Stain - Final Sputum - Endotracheal Tube Aspirate Sputum Culture - Final A&P Additional A&P Information 1. ESRD on CAPD 2. Hypokalemia, hypomagnesemia, hypophosphatemia 3. Profound malnutrition 4. VDRF, pneumonia Recommend: 1.5% alternating with 2.5% Q4 hours, gentamicin cream to be placed at exit site daily. Replace KCL, Mg, Phos. I asked HD RNs to evaluate AVF to see if they think it is usable. Needs aggressive nutritional support Attestations Medical Necessity Statement*: critically ill Coding Level of Care Code Acute Storeroom Attendant for Dawna Layton
[2020-02-15 12:59] LABS: Iron 36 ug/dL (37-145); Iron 37 ug/dL (37-145)
[2020-02-15 13:28] LABS: Ferritin 1489 ng/mL (15-150)
[2020-02-15 13:33] LABS: Percent Saturation 67.9 % (20-50); Total Iron Binding Capacity 53 mcg/dl; Unsaturated Iron Binding < 17 ug/dL (112-347)
[2020-02-15] MEDS: potassium chloride oral liq 20 mEq/15 mL UDC 40 MEQ PO (13:46)
[2020-02-15 13:56] LABS: INR 1.43 (0.8-1.2)
[2020-02-15 13:57] LABS: Fibrinogen 239 mg/dL (184-529); Partial Thromboplastin Time 44.9 SECONDS (23.9-36.7)
[2020-02-15] MEDS: magnesium sulfate premix 2 GM/50 ML PIGGYBACK IV (15:03)
[2020-02-15 17:58] LABS: Glucose Point of Care 130 mg/dL (70-110)
[2020-02-15] MEDS: AA-Dex 5%-20% w/Lytes 1,000 ML 42 ML IV (20:16)
--- NOTE | 2020-02-15 20:37 | PC.NURSE ---
1899 bedside report rcvd at htis time. pt awake on vent cpap mode. 40% fio2 non labored respirations. nods yes when asked about comfort . vss per cm. assisted to lazaro left side for optimal pd draining. soft wrist restraints in place for pt safety. scds in place. 1999 assessment per flowsheet.
[2020-02-15 21:23] LABS: Glucose Point of Care 147 mg/dL (70-110)
[2020-02-16] VITALS (34 sets, daily range): BP systolic 68–102; BP diastolic 50–75; PULSE 76–97; RESP 13–24; TEMP 35.6–37.2; O2SAT 96–100
--- NOTE | 2020-02-16 03:03 | PC.NURSE ---
bath care done at this time. drsg change to sacrum . 2 large pieces of nugauze packed in undermining covered c 4x4 and coverdem. em davis.
[2020-02-16] MEDS: ipratropium-albuterol 3 mL Neb INHALATION ×2 (03:54→07:38)
[2020-02-16] MEDS: Dianeal low Ca w/2.5% dex 2,000 mL Bag 2000 ML INTRAPERIT ×4 (04:00→19:37)
[2020-02-16 04:39] LABS: Basophils % 0.1 %; Eosinophils # 0.1 10^3/uL (0.0-0.8); Eosinophils % 0.4 %; Hematocrit 37.8 % (37.0-47.0); Hemoglobin 12.8 g/dL (11.5-15.3); Lymphocytes # 0.8 10^3/uL (0.8-4.8); Lymphocytes % 3.2 %; Mean Corpuscular HGB Conc 33.9 g/dL (30.0-36.0); Mean Corpuscular Volume 85.7 fL (81-99); Monocytes # 0.6 10^3/uL (0.2-0.9); Monocytes % 2.6 %; Neutrophils # 21.9 10^3/uL (1.8-7.7); Neutrophils % 92.9 %; Nucleated Red Blood Cells % 0 %; Platelet Count 32 10^3/cmm (130-400); Red Blood Count 4.41 10^6/uL (4.1-5.3); Red Cell Distribution Width 21.8 % (12.1-15.1); White Blood Count 23.6 10^3/uL (4.0-10.0)
[2020-02-16 04:52] LABS: Alanine Aminotransferase < 5 U/L (0-33); Albumin Level 1.7 g/dL (3.5-5.2); Alkaline Phosphatase 130 IU/L (35-105); Anion Gap 16.3 (5-19); Blood Urea Nitrogen 16 mg/dL (6-20); Calcium 6.6 mg/dL (8.5-10.5); Carbon Dioxide 20 mmol/L (22-29); Chloride 96 mmol/L (98-107); Globulin 2.2 g/dL (1.3-4.6); Glomerular Filtration Rate 18.4 mL/min (90-130); Glucose 368 mg/dL (65-115); Osmolality Calculated 277 mOsm/kg (285-295); Potassium 4.3 mmol/L (3.5-5.1); Sodium 128 mmol/L (136-145); Total Bilirubin 0.6 mg/dL (0.15-1.2); Total Protein 3.9 g/dL (6.6-8.7)
[2020-02-16 05:12] LABS: INR 1.29 (0.8-1.2)
[2020-02-16 05:31] LABS: Procalcitonin 1.96 ng/mL (0-0.5)
[2020-02-16 05:41] LABS: Magnesium 2.6 mg/dL (1.7-2.3)
[2020-02-16 05:52] LABS: Aspartate Amino Transferase 15 U/L (0-32)
[2020-02-16 06:12] LABS: ABG PCO2 37.4 mmHg (35-45); ABG PH Result 7.37 (7.35-7.45); Arterial Blood Gas Hematocrit 41.5 % (37-47); Base Excess ABG -3.5 mmol/L (-2.0-2.0); Blood Gas Allen Test Pos; Blood Gas Sample Site Radial, left; Blood Gas Sample Type Arterial; HCO3 ABG 21.4 mmol/L (22-26); Oxygen Device VENT
--- NOTE | 2020-02-16 07:00 | XR_ITS ---
WS: [id number] CHEST XRAY TECHNIQUE: Portable chest. CLINICAL INFORMATION: sob COMPARISON: February 15, 2020 FINDINGS: Right IJ sheath in place. Endotracheal tube appears retracted from the previous examination approxima tely 10 cm above the naga. Recommend advancement. Heart: Normal cardiac silhouette. Lungs: Small right greater than left pleural effusions appear unchanged. Bibasilar atelectasis. Airsp jovana infiltrates have improved from the last several days. No focal pneumonia. Bones: Normal visualized bony structures. XR/XR chest 1V portable [id number] IMPRESSION: 1. Endotracheal tube appears retracted from previous approximately 10 cm above the naga. Recommend advancement. 2. Enteric tube tip below the diaphragm. Right IJ sheath in place. 3. Stable small bilateral pleural effusions. 4. Stable mild residual airspace infiltrates although improved over the last s everal days
[2020-02-16 08:22] LABS: Glucose Point of Care 352 mg/dL (70-110)
[2020-02-16] MEDS: linezolid premix 600 MG/300 ML PREMIX 300 MG IV ×2 (08:28→20:42)
--- NOTE | 2020-02-16 09:37 | PM.PN ---
Subjective Subjective: Interval history: Patient has been on CPAP the last 12 hours, she did well, no hypercapnia episodes, has episodes of hypotension, afebrile, she is responding to commands this morning, squeezing my fingers bilaterally, wiggling her toes, nods her head to questions, she had 2.75 L off from peritoneal dialysis yesterday, overall she is improving, chest x-ray this morning shows improve pulmonary vascular congestion, bilateral thoracic ultrasound shows 500 cc of fluid on the right, 600 cc of fluid on the left Vitals/I&O/Wt Last Vital Signs Temp 96.9 F L 02/16/20 04:00 Pulse 84 02/16/20 07:49 Resp 16 02/16/20 07:47 BP 78/62 02/16/20 06:07 Pulse Ox 99 02/16/20 07:47 02/15/20 02/16/20 02/16/20 22:59 06:59 14:59 Intake Total 2050 / 4465.318 Output Total 2100 / 4500 2600 / 7100 Balance -50 / -34.682 -2600 / -2634.682 Weight last 48 hrs Weight 52.617 kg Weight 52.617 kg Weight 52.617 kg Physical Exam Const: COMMON NORMALS: no apparent distress and alert GENERAL APPEARANCE: cooperative, lethargic and ill appearing NUTRITIONAL APPEARANCE: cachectic ORIENTATION/CONSCIOUSNESS: Yes lethargic OTHER: Intubated and sedated, responds to questioning appropriately on minimal sedation, squeezing my fingers bilaterally, wiggling her toes nodding her head to questioning HENMT: COMMON NORMALS: normocephalic HEAD & SCALP: normocephalic Neck/C-Spine: COMMON NORMALS: no JVD Resp: COMMON NORMALS: normal respiratory effort, no retractions, no use of accessory muscles and clear to auscultation bilaterally EFFORT & INSPECTION: Yes tachypneic, Yes retractions and Yes uses accessory muscles AUSCULTATION: clear to auscultation bilaterally Cardio: COMMON NORMALS: no JVD, regular rate, regular rhythm, S1 normal heart sound and S2 normal heart sound RATE: regular rate RHYTHM: regular rhythm HEART SOUNDS: S1 normal and S2 normal GI: COMMON NORMALS: normal to inspection, nondistended, normoactive bowel sounds, soft to palpation, non-tender, no hepatosplenomegaly, no masses and no bruits PALPATION: Yes soft and Yes no hepatosplenomegaly OTHER: Has some generalized anasarca Extremity: COMMON NORMALS: normal capillary refill, no clubbing, cyanosis or edema and no calf tenderness NARRATIVE EXTREMITY EXAM: Nonpitting edema of lower extremities Neuro: SENSORIUM/ORIENTATION: Yes alert and Yes lethargic OTHER: Intubated, sedated, Psych: COMMON NORMALS: cooperative Data : 02/16/20 04:30 02/16/20 04:30 Micro: Microbiology 02/13/20 10:55 Gram Stain - Final Sputum - Endotracheal Tube Aspirate Sputum Culture - Final A&P Assessment and plan (1) Acute respiratory failure with hypoxia and hypercarbia: -Secondary to pulmonary edema and or pneumonia -chest x-ray showing bilateral pleural effusions, bilateral airspace disease with vascular congestion concerning for fluid overload and or pneumonia and or viral infection -BNP 27,000, will repeat today -white blood cell count 23.6 , pro calcitonin 1.96 -Cultures so far blood cultures, respiratory cultures have been unremarkable -Peritoneal dialysis 2750 cc output in the last 24 hours, chest x-ray shows improved aeration bilateral lung ken, remains fairly normotensive, off Levophed -Has peritoneal dialysis catheter in place, has a right arm AV fistula that has not been accessed in place, has a right central line in place Plan -Patient is clinically improving, plan on extubation in the next 24 hours -Continue ventilation, minimize PEEP, minimize FiO2,, minimize -Maintain map greater than 65, Levophed drip as required -Peritoneal dialysis for fluid overload for now, but hemodialysis a good near future option -Receiving TPN, low-dose sliding scale -GI prophylaxis Protonix -DVT prophylaxis SCDs, anticoagulation is contraindicated due to GI bleed -Continue Primaxin, switched over to Zyvox -Patient status is stable , prognosis is guarded Status: Acute (2) GI bleed: -FOBT positive -Eliquis has been discontinued -Has received 4 units PRBC so far, on Protonix 40 twice daily, -Hemoglobin now 12.8 -INR is 1.29, received 1 unit FFP - Trend hemoglobin -Surgery is on consult, scoping is on hold once respiratory status is improved Status: Acute (3) Acute hypokalemia: Potassium 3.1 this morning, received potassium phosphate (4) Hypothyroidism: -Takes 150 mcg of levothyroxine at home, complaints in question -TSH is 18.63 -Start 75 mcg of IV levothyroxine Status: Acute (5) Pressure ulcer, stage III: -Cultures have grown ESBL, Enterococcus faecalis -Continue repositioning, broad-spectrum antibiotics as above Status: Acute (6) Peritoneal dialysis catheter in place: Status: Acute (7) Hypotension: -Hypotension secondary to fluid shifts related to peritoneal dialysis -On midodrine -Currently minimal hypotensive episodes -Blood cultures have been unremarkable so far, has remained afebrile, lactic acid are minimal -Possible source of infection could be sacral infection/ulcers -Continue Levophed as required, continue broad-spectrum antibiotics -We will consider CT imaging of sacrum and coccyx if patient clinically does not improve Status: Acute Qualifiers: Hypotension type: unspecified hypotension type Qualified Code(s): I95.9 - Hypotension, unspecified (8) Renal failure treated with peritoneal dialysis: Status: Acute (9) Malnourished: Status: Acute (10) DVT (deep venous thrombosis): Eliquis is on hold, SCDs in place Status: Acute (11) Hypocalcemia: -Calcium level 6.4 -Likely secondary to renal failure -Continue to monitor Status: Acute (12) Hypophosphatemia: -Phosphorus level 2.2, receiving replacement, continue monitor phosphorus levels Status: Acute (13) Thrombocytopenia: -Platelet count down to 31,000 -All anticoagulation and heparin on hold -Peripheral smear shows evidence of iron deficiency, and thrombocytopenia -We will order iron studies, ultrasound of spleen -Possibly thrombocytopenia could be related to vancomycin? Vancomycin has been discontinued -Monitor platelet count, no active signs of bleeding Status: Acute Additional A&P Information # malnutrition -started on albumin TID -TPN Code status patient wants to be intubated, wants all medical interventions DVT ppx : none pharmacologic due to GI bleed, SCDs for now chronically ill, currently critical , monitor in ICU Dispo: Ideally should be in NH upon discharge, however she adamantly refuses this option. Insists on taking care of herself in spite of extensive counselling against this. 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
[2020-02-16 10:10] LABS: NT Pro B Type Natriuretic Pept 26412 pg/mL (0-125)
[2020-02-16] MEDS: levothyroxine 100 mcg SDV 75 MCG IVP (11:02)
[2020-02-16] MEDS: pantoprazole 40 mg SDV IVP ×2 (11:02→19:36)
[2020-02-16] MEDS: potassium chloride oral liq 20 mEq/15 mL UDC 40 MEQ PO (11:03)
[2020-02-16 12:31] LABS: Glucose Point of Care 357 mg/dL (70-110)
--- NOTE | 2020-02-16 12:51 | P.PN_ITS ---
Subjective Subjective: Interval history: remains intubated on 40% FiO2 PD has resulted in 2500 ml neg fluid balance yesterday, but now back on levophed WBC has increased, PD fluid remains clear Medications: Reviewed: Yes Vitals/I&O/Wt Last Vital Signs Temp 96.9 F L 02/16/20 04:00 Pulse 84 02/16/20 07:49 Resp 16 02/16/20 10:26 BP 78/62 02/16/20 06:07 Pulse Ox 99 02/16/20 07:47 02/15/20 02/16/20 02/16/20 22:59 06:59 14:59 Intake Total 2150 / 4565.318 Output Total 2100 / 4500 2600 / 7100 Balance 50 / 65.318 -2600 / -2534.682 Weight last 48 hrs Weight 52.617 kg Weight 52.617 kg Weight 52.617 kg Physical Exam Resp: AUSCULTATION: bronchial breath sounds Cardio: COMMON NORMALS: regular rhythm RHYTHM: regular rhythm OTHER: + edema Data : 02/16/20 04:30 02/16/20 04:30 Micro: Microbiology 02/13/20 10:55 Gram Stain - Final Sputum - Endotracheal Tube Aspirate Sputum Culture - Final A&P Additional A&P Information 1. ESRD on CAPD, now with negative fluid balance. Will change back to alternating 1.5 and 2.5% Q4 hours. Dialysis RNs have evaluated right UE AVF and do not believe it is suitable for use for hemodialysis at this time. 2. Hypokalemia resolved 3. VDRF, pneumonia 4. malnutrition on TPN 5. Hyponatremia, corrected for hyperglycemia, serum sodium 131 mEq/L Recommend: check phosphorus, continue CAPD Attestations Medical Necessity Statement*: remains critically ill with VDRF Coding Level of Care Code Acute Documentation Clerk for Dawna Layton
--- NOTE | 2020-02-16 12:56 | PC.NURSE ---
Orders received from Dr. Warren to administer Dianeal Low Calcium 1.5% Dextrose PD solution and Dianeal Low Calcium 2.5% Dextrose PD solution alternatively Q4H.
--- NOTE | 2020-02-16 13:02 | PC.SOCIAL ---
IMM Updated Updated pt's sister, Yolie, on Pg 2 IMM via phone. She verbally understands, no questions voiced. Signed, dated, & timed copy in chart.
[2020-02-16] MEDS: Dianeal low Ca w/1.5% dex 2,000 mL Bag 2000 ML INTRAPERIT ×2 (14:43→23:54)
[2020-02-16 19:38] LABS: Glucose Point of Care 286 mg/dL (70-110)
[2020-02-16] MEDS: AA-Dex 5%-20% w/Lytes 1,000 ML 42 ML IV (20:28)
[2020-02-16] MEDS: midodrine 5 mg TABLET 10 MG PO (22:01)
[2020-02-16 22:21] LABS: Glucose Point of Care 207 mg/dL (70-110)
--- NOTE | 2020-02-16 23:49 | PC.NURSE ---
PD drain time 30 minutes clear pale yellow effluent without observation of fibrin, received 1500ml out at this time. Pt repositioned side to side and pulled up in bed. Allow additional 20 minutes to drain and received total of 1800ml. Will continue to monitor.
[2020-02-17] VITALS (66 sets, daily range): BP systolic 86–173; BP diastolic 52–101; PULSE 73–114; RESP 3–30; TEMP 35.3–37.1; O2SAT 62–100
[2020-02-17] MEDS: Dianeal low Ca w/2.5% dex 2,000 mL Bag 2000 ML INTRAPERIT ×3 (03:58→16:55)
[2020-02-17 04:30] LABS: ABG PCO2 38.4 mmHg (35-45); Arterial Blood Gas Hematocrit 39.3 % (37-47); Base Excess ABG -0.9 mmol/L (-2.0-2.0); Blood Gas Allen Test Pos; Blood Gas Sample Site Radial, left; Blood Gas Sample Type Arterial; HCO3 ABG 23.7 mmol/L (22-26); Oxygen Device VENT; PO2 ABG 96.7 mmHg (80.0-100.0)
[2020-02-17 04:34] LABS: Basophils % 0.1 %; Eosinophils # 0.5 10^3/uL (0.0-0.8); Hemoglobin 12.3 g/dL (11.5-15.3); Lymphocytes # 2.1 10^3/uL (0.8-4.8); Lymphocytes % 9.5 %; Mean Corpuscular HGB Conc 34.2 g/dL (30.0-36.0); Mean Corpuscular Volume 84.9 fL (81-99); Monocytes # 1.2 10^3/uL (0.2-0.9); Monocytes % 5.3 %; Neutrophils # 18.4 10^3/uL (1.8-7.7); Nucleated Red Blood Cells % 0.2 %; Platelet Count 44 10^3/cmm (130-400); Red Blood Count 4.24 10^6/uL (4.1-5.3); Red Cell Distribution Width 21.9 % (12.1-15.1); White Blood Count 22.4 10^3/uL (4.0-10.0)
[2020-02-17 04:54] LABS: Alanine Aminotransferase < 5 U/L (0-33); Albumin Level 1.7 g/dL (3.5-5.2); Alkaline Phosphatase 142 IU/L (35-105); Anion Gap 14.8 (5-19); Aspartate Amino Transferase 13 U/L (0-32); Blood Urea Nitrogen 15 mg/dL (6-20); Calcium 6.8 mg/dL (8.5-10.5); Carbon Dioxide 23 mmol/L (22-29); Chloride 94 mmol/L (98-107); Globulin 2.4 g/dL (1.3-4.6); Glomerular Filtration Rate 19.3 mL/min (90-130); Glucose 237 mg/dL (65-115); Osmolality Calculated 270 mOsm/kg (285-295); Potassium 3.8 mmol/L (3.5-5.1); Sodium 128 mmol/L (136-145); Total Bilirubin 0.7 mg/dL (0.15-1.2); Total Protein 4.1 g/dL (6.6-8.7)
[2020-02-17 05:00] LABS: INR 1.17 (0.8-1.2)
[2020-02-17 05:04] LABS: Procalcitonin 1.99 ng/mL (0-0.5)
[2020-02-17 05:15] LABS: Phosphorus 1.8 mg/dL (2.5-4.5)
[2020-02-17] MEDS: sodium hypochlorite 0.25% Btl 473 mL 1 APPLIC TOPICAL ×3 (05:25→16:54)
--- NOTE | 2020-02-17 07:00 | XR_ITS ---
WS: [id number] CHEST XRAY TECHNIQUE: Portable chest. CLINICAL INFORMATION: sob COMPARISON: February 16, 2020 FINDINGS: Endotracheal tube has been advanced in good position with tip approximately 2.8 cm above the naga. Enteric tube with tip in the proximal stomach. This could be advanced. Heart: Normal cardiac silhouette. Lungs: Shallow inspiration today. Elevation right hemidiaphragm. Progressed pulmonary vascular conges tion. Small bilateral pleural effusions appear stable. Subsegmental atelectasis right midlung. Bibasi lar atelectasis. Bones: Normal visualized bony structures. XR/XR chest 1V portable [id number] IMPRESSION: 1. Endotracheal tube is been advanced in good position 2.0 by the naga. 2. Enteric tube with tip in the proximal stomach. Advanced. 3. More shallow inspiration today with mild pulmonary vascular congestion whic h appears progressed. 4. Small bilateral pleural effusions are stable. Bibasilar atelectasis with collins bsegmental atelectasis right midlung.
[2020-02-17 07:32] LABS: Glucose Point of Care 221 mg/dL (70-110)
[2020-02-17] MEDS: Dianeal low Ca w/1.5% dex 2,000 mL Bag 2000 ML INTRAPERIT ×3 (08:00→23:29)
[2020-02-17 08:31] LABS: Magnesium 2.4 mg/dL (1.7-2.3)
[2020-02-17] MEDS: methylphenidate 10 mg Tablet 5 MG PO (10:02)
[2020-02-17] MEDS: midodrine 5 mg TABLET 10 MG PO ×2 (10:02→14:04)
[2020-02-17] MEDS: pantoprazole 40 mg SDV IVP ×2 (10:04→17:00)
[2020-02-17] MEDS: levofloxacin-dextrose 5 % 750 MG/150 ML PREMIX 100 MG IV (10:04)
--- NOTE | 2020-02-17 12:02 | PM.PN ---
Subjective Subjective: Interval history: Extubated this morning, remains very drowsy. PD going well, net UF 900ml. Remains on pressors, unable to be weaned off. No pain. Breathing normally. Medications: Reviewed: Yes Medication Review Details: Current Medications Albuterol/Ipratropium (Duoneb) 3 ml INHALATION Q4H.RESPIRATORY ZAIN Last Admin: 02/14/20 03:35 Dose: 3 ml Documented by: Norepinephrine Bitartrate 4 mg (/ Dextrose) 254 mls @ 0 mls/hr IV .Q0M ZAIN; Protocol Last Titration: 02/14/20 02:39 Dose: Infused Documented by: Vancomycin HCl 750 mg/ Sodium (Chloride) 250 mls @ 250 mls/hr IV Q48H ZAIN; Protocol Last Infusion: 02/13/20 02:12 Dose: Infused Documented by: Imipenem/Cilastatin Sodium 250 (mg/ Sodium Chloride) 100 mls @ 200 mls/hr IV Q12H ZAIN; Protocol Last Infusion: 02/13/20 22:58 Dose: Infused Documented by: Fentanyl 1,000 mcg/ Sodium (Chloride) 100 mls @ 0 mls/hr IV .Q0M PRN; Protocol PRN Reason: SEDATION Propofol (Diprivan) 1,000 mg in 100 mls @ 0 mls/hr IV .Q0M PRN; Protocol PRN Reason: SEDATION Last Titration: 02/13/20 22:58 Dose: 30 mcg/kg/min, 9.5 mls/hr Documented by: Famotidine 40 mg/ Amino Acids/ (Electrolytes) 1,004 mls @ 42 mls/hr IV .[id number] ZAIN; Protocol Famotidine 40 mg/ Amino Acids/ (Electrolytes) 1,004 mls @ 14 mls/hr IV .Q24H ZAIN; Protocol Last Admin: 02/13/20 22:14 Dose: 14 mls/hr, 14 mls/hr Documented by: Potassium Phosphate 15 mmol/ (Sodium Chloride) 255 mls @ 62.5 mls/hr IV ONCE ONE Stop: 02/14/20 04:33 Last Admin: 02/14/20 01:49 Dose: 62.5 mls/hr Documented by: Levothyroxine Sodium (Synthroid) 75 mcg IVP DAILY ZAIN Last Admin: 02/13/20 10:46 Dose: 75 mcg Documented by: Midodrine (Proamatine) 10 mg PO TID [facility] Last Admin: 02/13/20 22:06 Dose: 10 mg Documented by: Ondansetron HCl (Zofran) 4 mg IVP Q6H PRN PRN Reason: NAUSEA AND VOMITING Last Admin: 02/11/20 12:16 Dose: 4 mg Documented by: Pantoprazole Sodium (Protonix) 40 mg IVP BID [facility] Last Admin: 02/13/20 17:12 Dose: 40 mg Documented by: Peritoneal Dialysis Solution (Dianeal Low Ca W/1.5% Dex) 2,000 ml INTRAPERIT 5XD [facility] Last Admin: 02/13/20 06:07 Dose: 2,000 ml Documented by: Peritoneal Dialysis Solution (Dianeal Low Ca W/2.5% Dex) 2,000 ml INTRAPERIT Q10H [facility] Last Admin: 02/14/20 01:51 Dose: 2,000 ml Documented by: Peritoneal Dialysis Solution (Dianeal Low Ca W/1.5% Dex) 2,000 ml INTRAPERIT Q10H [facility] Last Admin: 02/14/20 05:22 Dose: 2,000 ml Documented by: Vitals/I&O/Wt Last Vital Signs Temp 98.8 F 02/17/20 04:00 Pulse 75 02/17/20 08:48 Resp 12 02/17/20 08:48 BP 124/68 02/17/20 08:48 Pulse Ox 100 02/17/20 08:48 02/16/20 02/17/20 02/17/20 22:59 06:59 14:59 Intake Total 1107.773 / 1784.500 645.252 / 2429.752 Output Total 0 / 0 Balance 1107.773 / 1784.500 645.252 / 2429.752 Weight last 48 hrs Weight 52.617 kg Weight 52.617 kg Weight 52.617 kg Physical Exam Narrative: EXAM NARRATIVE: heent- nc/at, eomi, neck supple lungs diffuse ronchi heart reg +FIDE abd soft, +BS, + dialysis catheter ext + edema, rue avf w/ poor bruit, but palpable and heard sacral decub as per RN neuro- lethargic, confused in bed Const: COMMON NORMALS: no apparent distress, oriented x3 and alert GENERAL APPEARANCE: cooperative, in distress, lethargic, ill appearing, frail appearing and appears older than stated age NUTRITIONAL APPEARANCE: cachectic ORIENTATION/CONSCIOUSNESS: Yes awake, Yes oriented to person, Yes oriented to place, Yes oriented to time and Yes lethargic OTHER: Intubated and sedated, responds to questioning appropriately on minimal sedation, squeezing my fingers bilaterally, wiggling her toes nodding her head to questioning HENMT: COMMON NORMALS: normocephalic, head/scalp atraumatic, hearing grossly normal bilaterally, external ears normal, EAC's normal, external nose normal and moist oral mucous membranes HEAD & SCALP: normal to inspection, normocephalic and atraumatic FACE & SINUS: normal facial exam and face symmetric NOSE: external nose normal and nares normal EXTERNAL EAR: Yes external ears normal EXTERNAL AUDITORY CANAL: EAC's normal MOUTH: tongue normal and other (Dry mucous membranes) THROAT: no uvular edema Eye: COMMON NORMALS: PERRL, EOMs intact bilaterally, conjunctivae normal and no scleral icterus GENERAL EYE: normal appearance of both eyes and normal light reflex CONJUNCTIVA: Yes conjunctivae normal SCLERA: sclerae normal CORNEA: Yes corneas normal PUPIL: Yes PERRL DIRECT OPHTHALMOSCOPY: Yes normal light reflex Neck/C-Spine: COMMON NORMALS: full ROM, no lymphadenopathy, supple, no meningeal signs and no JVD GENERAL: Yes normal visual inspection and Yes trachea midline CERVICAL SPINE: Yes cervical ROM normal Chest: COMMONS NORMALS: inspection of chest normal and palpation of chest normal Resp: COMMON NORMALS: normal respiratory effort, no retractions, no use of accessory muscles and clear to auscultation bilaterally EFFORT & INSPECTION: Yes tachypneic, Yes respiratory distress, Yes pursed lip breathing, Yes retractions, Yes uses accessory muscles and Yes paradoxical thoraco-abdominal movements AUSCULTATION: clear to auscultation bilaterally, rales, rhonchi, diminished lung sounds and bronchial breath sounds Cardio: COMMON NORMALS: no JVD, regular rate, regular rhythm, S1 normal heart sound, S2 normal heart sound, no gallops, no clicks, no murmurs and no rub JUGULAR VENOUS DISTENTION: no JVD RATE: regular rate RHYTHM: regular rhythm HEART SOUNDS: S1 normal and S2 normal OTHER: + edema GI: COMMON NORMALS: normal to inspection, nondistended, normoactive bowel sounds, soft to palpation, non-tender, no hepatosplenomegaly, no masses and no bruits PALPATION: Yes soft, Yes tender (Moderate diffusely) and Yes no hepatosplenomegaly RECTAL EXAM: heme positive stool gross blood OTHER: Has some generalized anasarca : COMMON NORMALS: Yes no CVA tenderness BLADDER/KIDNEY EXAM: Yes no CVA tenderness Back/Pelvis: COMMON NORMALS: no CVA tenderness, thoracic and lumbar spine normal to inspection, no thoracic nor lumbar tenderness and thoraco-lumbar ROM normal Extremity: COMMON NORMALS: normal to inspection, full ROM, normal capillary refill, no joint enlargement, no clubbing, cyanosis or edema, no calf tenderness and no pedal edema NARRATIVE EXTREMITY EXAM: Nonpitting edema of lower extremities OTHER: Right upper arm with dialysis catheter in place. Thrill palpated. Neuro: COMMON NORMALS: oriented x3, CN's II-XII intact bilaterally, moves all extremities, no focal motor deficits and no sensory deficits noted SENSORIUM/ORIENTATION: Yes alert, Yes oriented to person, Yes oriented to place, Yes oriented to time and Yes lethargic MENINGEAL SIGNS: Yes no meningeal signs OTHER: Intubated, sedated, Psych: COMMON NORMALS: cooperative Skin: COMMON NORMALS: skin turgor normal, no jaundice and no mottling NARRATIVE SKIN EXAM: Diffuse bruising in areas noted. GENERAL SKIN EXAM: turgor normal Data : 02/17/20 04:10 02/17/20 04:10 A&P Additional A&P Information 1. ESRD on CAPD - Now with negative fluid balance. Cont alternating 1.5 and 2.5% Q4 hours. - Dialysis RNs have evaluated right UE AVF and do not believe it is suitable for use for hemodialysis at this time. 2. Hypotension - check random anni (of note typical adrenal insufficiency stigmata is masked in ESRD) 3. VDRF, pneumonia - extubated 02/16 4. malnutrition on TPN 5. Lytes - minor aberrance, Cr Na ~130. Low phos to be replaced Attestations Medical Necessity Statement*: mgmt of ESRD Coding Level of Care Code Acute Internal [employer] for [employer]
[2020-02-17 12:37] LABS: Cortisol Random 14.21 mcg/dL (2.47-19.5)
[2020-02-17] MEDS: levothyroxine 150 mcg Tablet 75 MCG PO (13:20)
[2020-02-17] MEDS: levofloxacin-dextrose 5 % 500 MG/100 ML PREMIX 100 MG IV (13:20)
[2020-02-17 14:02] LABS: Glucose Point of Care 288 mg/dL (70-110)
[2020-02-17] MEDS: potassium chloride premix 40 MEQ/100 ML PREMIX 25 MEQ IV (14:04)
--- NOTE | 2020-02-17 15:37 | P.PN_ITS ---
Subjective Subjective: Interval history: Morning patient was successfully extubated, onto high flow nasal cannula, patient follows commands, but has a poor cough, has poor appetite, high aspiration risk, I reevaluated the patient this morning, patient has a poor respiratory effort. She has trouble with phonation status post surgery, but does follow commands, does squeeze my finger for yes, was able to answer most questions to yes or no, was able to nod her head for yes or no I discussed patient's CODE STATUS with her, discussed patient's prognosis, advised patient that she has a high risk of acute respiratory failure in the near future, high risk of intubation in the near future, high risk of tracheostomy in the near future, patient voiced understanding, all questions answered, patient does not want to be intubated if she were to go into acute respiratory failure Patient has significant deconditioning, significant malnutrition, she will require aggressive PT OT, aggressive nutrition interventions, aggressive pulmonary toilet, patient voiced understanding, all questions answered Vitals/I&O/Wt Last Vital Signs Temp 95.6 F L 02/17/20 15:00 Pulse 79 02/17/20 15:00 Resp 21 H 02/17/20 15:00 BP 105/67 02/17/20 15:00 Pulse Ox 99 02/17/20 15:00 02/17/20 02/17/20 02/17/20 06:59 14:59 22:59 Intake Total 645.252 / 2429.752 205.528 / 205.528 216.92 / 422.448 Balance 645.252 / 2429.752 205.528 / 205.528 216.92 / 422.448 Weight last 48 hrs Weight 52.617 kg Weight 52.617 kg Weight 52.617 kg Physical Exam Const: COMMON NORMALS: no apparent distress and alert GENERAL APPEARANCE: cooperative NUTRITIONAL APPEARANCE: cachectic HENMT: COMMON NORMALS: normocephalic HEAD & SCALP: normocephalic Neck/C-Spine: COMMON NORMALS: no JVD Resp: COMMON NORMALS: normal respiratory effort, no retractions, no use of accessory muscles and clear to auscultation bilaterally EFFORT & INSPECTION: Yes tachypneic, Yes retractions and Yes uses accessory muscles AUSCULTATION: clear to auscultation bilaterally Cardio: COMMON NORMALS: no JVD, regular rate, regular rhythm, S1 normal heart sound and S2 normal heart sound RATE: regular rate RHYTHM: regular rhythm HEART SOUNDS: S1 normal and S2 normal GI: COMMON NORMALS: normal to inspection, nondistended, normoactive bowel soun ds, soft to palpation, non-tender, no hepatosplenomegaly, no masses and no bruits PALPATION: Yes soft and Yes no hepatosplenomegaly OTHER: Has some generalized anasarca Extremity: COMMON NORMALS: normal capillary refill, no clubbing, cyanosis or edema and no calf tenderness NARRATIVE EXTREMITY EXAM: Nonpitting edema of lower extremities Neuro: SENSORIUM/ORIENTATION: Yes alert Psych: COMMON NORMALS: cooperative Data : 02/17/20 04:10 02/17/20 04:10 A&P Assessment and plan (1) Acute respiratory failure with hypoxia and hypercarbia: -Secondary to pulmonary edema and or pneumonia -chest x-ray showing bilateral pleural effusions, bilateral airspace disease with vascular congestion concerning for fluid overload and or pneumonia and or viral infection -BNP down to 26,000 412 -white blood cell count 22.4 -Cultures so far blood cultures, respiratory cultures have been unremarkable -Peritoneal dialysis 2429 cc output in the last 24 hours, chest x-ray shows improved aeration bilateral lung ken, remains fairly normotensive, requires intermittent Levophed -Has peritoneal dialysis catheter in place, has a right arm AV fistula that has not been accessed in place, has a right central line in place Plan -Has successfully been extubated, but has a poor at respiratory effort, poor cough, poor phonation -She has a high risk of respiratory failure in the near future, high risk of tracheostomy, patient declines further intubation -Continue high flow nasal cannula, BiPAP if required -Maintain map greater than 65, Levophed drip as required -Peritoneal dialysis for fluid overload for now -Receiving TPN, low-dose sliding scale -GI prophylaxis Protonix -DVT prophylaxis SCDs, anticoagulation is contraindicated due to GI bleed -De-escalate antibiotics to Levaquin -Patient status is stable , prognosis is guarded Status: Acute (2) GI bleed: -FOBT positive -Eliquis has been discontinued -Has received 4 units PRBC so far, on Protonix 40 twice daily, -Hemoglobin now 12.8 -INR is 1.29, received 1 unit FFP -Patient's hemoglobins have been stable -Surgery is on consult, scoping is on hold once respiratory status is improved Status: Acute (3) Acute hypokalemia: Potassium 3.8 this morning, received potassium phosphate (4) Hypothyroidism: -Takes 150 mcg of levothyroxine at home, complaints in question -TSH is 18.63 -Start 75 mcg of IV levothyroxine Status: Acute (5) Pressure ulcer, stage III: -Cultures have grown ESBL, Enterococcus faecalis -Continue repositioning, broad-spectrum antibiotics as above Status: Acute (6) Peritoneal dialysis catheter in place: Status: Acute (7) Hypotension: -Hypotension secondary to fluid shifts related to peritoneal dialysis -On midodrine, increased to 10 mg 4 times daily -Currently minimal hypotensive episodes -Blood cultures have been unremarkable so far, has remained afebrile, lactic acid are minimal Status: Acute Qualifiers: Hypotension type: unspecified hypotension type Qualified Code(s): I95.9 - Hypotension, unspecified (8) Renal failure treated with peritoneal dialysis: Status: Acute (9) Malnourished: Status: Acute (10) DVT (deep venous thrombosis): Eliquis is on hold, SCDs in place Status: Acute (11) Hypocalcemia: -Calcium level 6.8 -Likely secondary to renal failure -Continue to monitor Status: Acute (12) Hypophosphatemia: -Phosphorus level 2.2, receiving replacement, continue monitor phosphorus levels Status: Acute (13) Thrombocytopenia: -Platelet count down to 31,000 -All anticoagulation and heparin on hold -Peripheral smear shows evidence of iron deficiency, and thrombocytopenia -We will order iron studies, ultrasound of spleen -Possibly thrombocytopenia could be related to vancomycin? Vancomycin has been discontinued -Monitor platelet count, no active signs of bleeding Status: Acute Additional A&P Information # malnutrition -started on albumin TID -TPN Code status patient denies future intubations, okay with other interventions DVT ppx : none pharmacologic due to GI bleed, SCDs for now chronically ill, currently critical , monitor in ICU Dispo: Ideally should be in NH upon discharge, however she adamantly refuses this option. Insists on taking care of herself in spite of extensive counselling against this. Attestations Medical Necessity Statement*: Requires continued hospitalization due to acute respiratory failure Coding Level of Care Code Acute [employer] for [employer] Diagnoses Acute respiratory failure with hypoxia and hypercarbia J96.01; J96.02 GI bleed K92.2 Acute hypokalemia E87.6 Hypothyroidism E03.9 Pressure ulcer, stage III L89.93 Peritoneal dialysis catheter in place Z99.2 Hypotension I95.9 Hypotension type: unspecified hypotension type Renal failure treated with peritoneal dialysis N19; Z99.2 Malnourished E46 DVT (deep venous thrombosis) I82.409 Hypocalcemia E83.51 Hypophosphatemia E83.39 Thrombocytopenia D69.6
[2020-02-17 16:47] LABS: Glucose Point of Care 288 mg/dL (70-110)
[2020-02-17] MEDS: morphine 4 mg/mL SDV 1 mL 1 MG IVP (17:56)
--- NOTE | 2020-02-17 18:33 | PC.NURSE ---
PATIENT UNABLE TO VERBALIZE BUT FOLLOWS COMMANDS, DR BAUM AT BEDSIDE AND DISCUSSING HER FAILURE TO MAINTAIN HER AIRWAY AND HER WEAKNESS AND MALNURISHED STATE. SHE CLEARLY AGREED SHE DID NOT WANT REINTUBATED. SHE HAS SORES ON HER FACE WELL HER COCCYX. SHE ADMITS TO PAIN. GINO ONE GIVEN AN HOUR AFTER THAT TALK WITH THE DOCTOR SHE WAS UNABLE TO MAINTAIN HER SATS ON NC. SATS 84, NO GAG NOTED WHEN BACK OF THROAT SUCTIONED. LEVOPHED DRIP WAS WEANED TO 3 FROM 5 OVER THAT HOUR HER BP WAS 130 SYSTOLIC AFTER HER BATH AND DRESSING CHANGES.
--- NOTE | 2020-02-17 20:14 | PC.NURSE ---
1900 rcvd report at this time vss per cm. pt currently infusing 3mcg/min levophed o2 5L nc . pd fluid instilled at 1999 . pt reports to painful stimuli c grimace but non verbal at tihs time. pt positioned for comfort. assessment per flowsheet.
[2020-02-17] MEDS: AA-Dex 5%-20% w/Lytes 1,000 ML 42 ML IV (20:43)
[2020-02-18] VITALS (17 sets, daily range): BP systolic 86–133; BP diastolic 51–74; PULSE 72–87; RESP 14–23; TEMP 36.1; O2SAT 76–93
[2020-02-18 00:43] LABS: Glucose Point of Care 149 mg/dL (70-110)
--- NOTE | 2020-02-18 02:48 | PC.NURSE ---
pt noted to have labored shallow respirations with use of accessory muscles used. 1 mg morphine given ivp. notified. em.
[2020-02-18] MEDS: Dianeal low Ca w/2.5% dex 2,000 mL Bag 2000 ML INTRAPERIT (03:08)
--- NOTE | 2020-02-18 06:43 | PC.NURSE ---
0600 pt noted to have rhythm change sb 55-60 pvc and pac. pt noted to have large pause c agonal respirations. pt asystole @ [address] luther notified pt sister who is poa questions answered. mts cleared pt for release and saving sight cleared. home notified. Padmini mcfarland rn.
--- NOTE | 2020-02-18 12:24 | P.DES_ITS ---
Discharge Providers DDS Date of Admission: 02/09/20 04:32 Date Summary Completed: 02/18/20 Attending Provider at Admission: Miladys Vazquez MD Time of : 18:07 Attending Provider at Discharge: Costa Morejon MD Primary Care Provider: Ariella Aguilera MD DS Diagnoses Hospital Diagnoses (1) Acute respiratory failure with hypoxia and hypercarbia: (2) GI bleed: (3) Acute hypokalemia: (4) Hypothyroidism: (5) Pressure ulcer, stage III: (6) Peritoneal dialysis catheter in place: (7) Hypotension: Qualifiers: Hypotension type: unspecified hypotension type Qualified Code(s): I95.9 - Hypotension, unspecified (8) Renal failure treated with peritoneal dialysis: (9) Malnourished: (10) DVT (deep venous thrombosis): (11) Hypocalcemia: (12) Hypophosphatemia: (13) Thrombocytopenia: Reason for Visit Reason for Visit: Reason For Visit: SOB Summary Date and Time of : Date of : 02/18/20 Time of : 18:07 Summary: Summary: This is a 54-year-old female with a past medical history of end-stage renal disease on peritoneal dialysis, history recent history of DVT on Eliquis, recent admission due to severe electrolyte abnormalities and lethargiy, deconditioning, malnutrition, cachexia, depression, type 2 diabetes mellitus, dyslipidemia, hypothyroidism, sacral decubitus ulcers, who presented to [facility] due to being extremely lethargic, pale, and shortness of breath. Patient was admitted for multiple reasons: Acute hypoxic hypercarbic respiratory failure secondary to fluid overload, pulmonary edema and pneumonia. Patient was admitted to the intensive care unit, was placed on the BiPAP, received peritoneal dialysis in consultation with the nephrology team, received broad-spectrum antibiotics. However patient's peritoneal dialysis was complicated with hypotensive episodes, and episodes of respiratory distress, and poor respiratory effort. After discussion with the patient, she agreed for elective intubation, patient was successfully intubated, placed on the ventilator. Received peritoneal dialysis, pressor support, for 4 days, patient's pulmonary edema improved, lung dynamics on the ventilator improved and were optimal, she was negative balance in terms of diuresis, she tolerated weaning trials well, did well with CPAP trials, and was successfully extubated on to high flow nasal cannula. However, after extubation patient continued to have poor respiratory effort after extubation, poor cough, requiring high flow oxygen, intermittent episodes of tachypnea and apnea. After discussion with patient, she was advised of her high risk of reintubation, high risk of respiratory failure, high risk of being chronically being placed on a ventilator and including tracheostomy placement. I advised patient that given her poor nutritional status, she would likely require a PEG tube for feeding, patient declined this. I advised patient that given her poor functional status, severe malnutrition, severe cachexia, her likelihood of meaningful recovery was poor. After discussion with patient, she was wanted to be made DNR/DNI. Patient voiced understanding, all questions answered, agreed to made DNR/DNI, but wanted medical interventions to be continued. I had a discussion with patient about comfort care, but she did not want comfort care for now. I also reached out to patient's sister, and advised her of the situation, she, she voiced understanding, all questions answered, she stated above above also her sister did not want to be on prolonged life sustaining measures wanted to remain comfortable, did not want to suffer. Patient continued to have episodes of tachypnea, hypoxia, poor respiratory effort, poor cough, poor responsiveness throughout the evening. Patient 02/18/2020 at 6:07 AM after she had episodes of apnea, bradycardia. Patient was also admitted for upper GI bleed likely secondary to Eliquis, FOBT positive, she received a total of 4 units PRBC, 1 unit FFP, received Protonix therapy, her hemoglobin trended up to 12.8, surgery was consulted, however scoping was delayed given her intubation. On admission patient was also found to be hypokalemic, anemic which was thought to be secondary to poor oral intake, malnourishment. Patient also had sacral ulcers on admission, told to the coccygeal area, medically managed through dressing changes, repositioning, patient was on broad- spectrum antibiotics. Patient was also found to be hypotensive throughout her admission, likely related to fluid shifts related to peritoneal dialysis, but some component could be related to patient's pneumonia and anemia. Throughout her admission she was on and off pressor support, primarily required pressor support during peritoneal dialysis, but only minimal pressors were required, she was on broad-spectrum antibiotics, her blood cultures were unremarkable, urine cultures were unremarkable, peritoneal cultures were unremarkable. Additional Data: Advance directives?: No Discharge Plan Discharge Patient Disposition: Condition: Stable Prescriptions: No Action Calmoseptine 0.44-20.6 % ointment 1 applic TOPICAL QID PRN (Reason: skin irritation) Qty: 113 RF: 1 guaifenesin [Mucinex] 600 mg tablet extended release 12hr 600 mg PO Q12H Qty: 60 RF: 1 amoxicillin-pot clavulanate 500-125 mg tablet 1 tab PO Q12H 10 Days Qty: 20 RF: 0 sertraline 100 mg tablet 200 mg PO DAILY RF: 0 gentamicin 0.1 % Cream 1 applic TOPICAL QID RF: 0 levalbuterol tartrate [Xopenex HFA] 45 mcg/actuation Hfa Aerosol Inhaler 2 puff INHALATION Q8H PRN (Reason: Shortness Of Breath) RF: 0 RenaPlex-D 800 mcg-12.5 mg -2,000 unit Tablet 1 tab PO DAILY RF: 0 esomeprazole magnesium [Nexium] 40 mg Capsule,Delayed Release(Dr/Ec) 40 mg PO DAILY RF: 0 morphine concentrate 100 mg/5 mL (20 mg/mL) solution 0.5 mg PO Q2H PRN (Reason: Pain) RF: 0 hydrocodone-acetaminophen [Mccomb] 10-325 mg tablet 1 tab PO Q4H PRN (Reason: Pain) RF: 0 aspirin [Ecotrin] 325 mg tablet,delayed release (DR/EC) 325 mg PO DAILY RF: 0 bisacodyl [Dulcolax (bisacodyl)] 10 mg suppository 10 mg NM DAILY PRN (Reason: Constipation) RF: 0 ondansetron 4 mg tablet,disintegrating 4 mg PO Q6H PRN (Reason: Nausea) RF: 0 lorazepam [Lorazepam Intensol] 2 mg/mL concentrate 1 mg PO Q2H PRN (Reason: Anxiety) RF: 0 ezetimibe [Zetia] 10 mg tablet 10 mg PO DAILY RF: 0 metoprolol tartrate 25 mg tablet 12.5 mg PO BID RF: 0 levothyroxine 50 mcg Tablet 150 mcg PO DAILY Qty: 30 RF: 0 calcium carbonate 200 mg calcium (500 mg) Tablet,Chewable 1,000 mg PO TID Qty: 90 RF: 0 Eliquis DVT-PE Treat 30D Start 5 mg (74 tabs) tablets,dose pack See Rx Instructions .ROUTE .COMPLEX Qty: 74 RF: 0 Referrals: Hazel Mancera FNP [Family Provider] - Ariella Aguilera MD [Primary Care Provider] - Discharge Date/Time: 02/18/20 06:07 Probable Cause of Probable cause of : Cardiac arrest DS Attestations Time Spent in /Discharge Care*: less than 30 min Quality - AMI: AMI present?: No Quality - Stroke: CVA present?: No Quality - VTE: VTE present?: No Deep Vein Thrombosis/Pulmonary Embolism Present on Admission: No Coding Level of Care Code Acute 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
== END 2020-02-18 06:07 | disposition expired | DRG 377 ==
LOC: ER 04:14 → ICU 06:03
PROVIDERS: Internal Medicine Nephrology; Student in an Organized Health Care Education/Training Program; Admitting Provider Internal Medicine; Emergency Provider Emergency Medicine; Family Provider Nurse Practitioner Family; PCP Family Medicine; Visit Provider Family Medicine
DX: K92.2 Gastrointestinal hemorrhage, unspecified (principal); L89.153 Pressure ulcer of sacral region, stage 3; J96.02 Acute respiratory failure with hypercapnia; J96.01 Acute respiratory failure with hypoxia; A41.9 Sepsis, unspecified organism; N18.6 End stage renal disease; J18.9 Pneumonia, unspecified organism; E46 Unspecified protein-calorie malnutrition; N17.9 Acute kidney failure, unspecified; E87.1 Hypo-osmolality and hyponatremia; Z66 Do not resuscitate; E03.9 Hypothyroidism, unspecified; E87.6 Hypokalemia; E83.51 Hypocalcemia; D69.6 Thrombocytopenia, unspecified; E83.39 Other disorders of phosphorus metabolism; D63.1 Anemia in chronic kidney disease; Z86.718 Personal history of other venous thrombosis and embolism; Z79.01 Long term (current) use of anticoagulants; F32.9 Major depressive disorder, single episode, unspecified; E78.5 Hyperlipidemia, unspecified; R00.1 Bradycardia, unspecified; Z99.2 Dependence on renal dialysis; M19.90 Unspecified osteoarthritis, unspecified site; K21.9 Gastro-esophageal reflux disease without esophagitis; Z98.84 Bariatric surgery status; Z87.891 Personal history of nicotine dependence; Z86.14 Personal history of Methicillin resistant Staphylococcus aureus infection; I25.10 Atherosclerotic heart disease of native coronary artery without angina pectoris; Z79.82 Long term (current) use of aspirin
CPT/HCPCS: 12345; 36415; 36416; 36430; 36556; 36592; 36600; 71045; 71250; 74176; 76604; 76705; 76937; 80051; 80053; 80202; 80307; 80500; 82140; 82306; 82533; 82550; 82728; 82803; 82810; 82945; 82962; 83520; 83540; 83550; 83605; 83690; 83735; 83880; 83986; 84100; 84145; 84157; 84443; 84484; 85014; 85018; 85025; 85045; 85362; 85378; 85384; 85610; 85730; 86140; 86850; 86900; 86920; 86927; 87040; 87070; 87075; 87205; 87420; 87635; 87641; 87804; 89050; 90935; 92523; 92610; 93005; 93306; 93970; 94002; 94003; 94640; 94660; 94799; 96372; 96374; 96375; 99284; A4570; C1751; C9113; J0610; J0743; J1815; J1956; J2001; J2020; J2250; J2270; J2405; J2543; J2704; J3370; J3475; J3480; J3490; J7030; J7050; P9016; P9017; P9047; Q3014